=== PATIENT | female | born 1945 | race Caucasian/White ===

== ENCOUNTER 2024-03-29 09:46 | Outpatient (OUT) | payer MEDICARE, SELFPAY ==
--- NOTE | 2024-03-29 | XR_ITS ---
The [address] [address] Patient Name: PEÑA LOPEZ MRN: [id number] date: 1945 Sex: F Assigned Patient Location: Current Patient Location: Accession/Order Number: [id number] Exam Date: 03/29/2024 09:48 Report Date: 03/30/2024 09:55 At the request of: DAV ALFARO Procedure: XR hand RT min 3V PROCEDURE: XR hand RT min 3V HISTORY: RIGHT HAND PAIN ; no known injury COMPARISON: XR hand right 05/25/2021 FINDINGS: BONES:Moderate degenerative joint disease involving the carpal-metacarpal joints of all 5 digits. Moderate degenerative changes of the distal interphalangeal joints of the second and 5th digit. Moderate degenerative changes of the second digit proximal interphalangeal joint. SOFT TISSUES:No visible soft tissue swelling. EFFUSION:None visible. OTHER: Negative. XR/XR hand RT min 3V IMPRESSION: 1. No appreciable acute bone abnormality. 2. Multifocal moderate degenerative joint disease favoring osteoarthritis; slightly progressed. Electronically authenticated by: DAV RAMOS Date: 03/30/2024 09:55
== END 2024-03-29 09:47 | disposition home or self-care (01) ==
LOC: EC 09:46
PROVIDERS: PCP Internal Medicine; Visit Provider Orthopaedic Surgery
DX: M79.641 Pain in right hand (principal)
CPT/HCPCS: 73130

== ENCOUNTER 2024-10-06 11:25 | Outpatient (OUT) | payer MEDICARE, SELFPAY ==
--- NOTE | 2024-10-06 11:44 | XR_ITS ---
The [address] [address] Patient Name: PEAÑ LOPEZ MRN: [id number] date: 1945 Sex: F Assigned Patient Location: [facility] Current Patient Location: [facility] Accession/Order Number: [id number] Exam Date: 10/06/2024 13:56 Report Date: 10/06/2024 13:59 At the request of: ANA LIM Procedure: XR lumbar spine 2-3V 3 views Lumbar Spine HISTORY: Chronic low back pain for 6 months COMPARISON: None POSTSURGICAL CHANGES: None BONY ALIGNMENT: Straightening. Moderate scoliosis with concavity to the left HYPERMOBILITY:No bending imaging. LISTHESIS:4 mm L4-5 degenerative anterolisthesis. 2 mm L2-3 and L3-4 degenerative retrolisthesis. FRACTURE: None DEGENERATIVE CHANGES: Extensive L5-S1 disc space narrowing. Moderate L2-L5 disc space narrowing. Since the lower lumbar facet degeneration. SOFT TISSUES: Unremarkable BONY MINERALIZATION:Diffuse osteopenia XR/XR lumbar spine 2-3V IMPRESSION: Extensive multilevel degeneration. Scoliosis and diffuse osteopenia. Impression dictated by: Samuel Oropeza M.D.10/06/2024 1:59 PM Dictation Location: [place] [address] Electronically authenticated by: [id number] Y Date: 10/06/2024 13:59
--- OUTSIDE RECORDS SUMMARY | 2024-10-06 11:48 | XMS_ITS | CCD ---
Author Organization [facility] Care Team Providers Care Simulation Specialist Name Role Phone DR CARLOS ALBERTO SANCHEZ Primary Care Unavailable DIAB, PRABHJOT Admitting Unavailable DIAB, PRABHJOT Attending Unavailable PRABHJOT UGARTE Consulting Unavailable HEMMER, DR CALLIE Hill Admitting Unavailable HEMMER, DR CALLIE Hill Attending Unavailable RAPHAEL, DR PEREZ Primary Care Unavailable ZIEBER, DR DAV Arenas Consulting Unavailable HEMMER, DR CALLIE Hill Consulting Unavailable Guadalupe Holbrook Unavailable JUANY Sanchez Primary Care Provider MD Guadalupe Holbrook Attending Provider Jess Moss Unavailable JUANY Sanchez Primary Care Provider MD Guadalupe Holbrook Attending Provider JUANY Sanchez Primary Care Provider MD Guadalupe Holbrook Attending Provider Carlos Alberto Sanchez MD Unavailable [phone] Carlos Alberto Sanchez MD Primary Care Provider JUANY Sanchez Primary Care Provider MD Guadalupe Holbrook Attending Provider Carlos Alberto Sanchez II Primary Care Provider [phone] Guadalupe Holbrook MD Attending Provider Guadalupe Holbrook Admitting Unavailable Carlos Alberto Sanchez Primary Care Unavailable Guadalupe Holbrook Attending Unavailable Guadalupe Holbrook Admitting Unavailable Carlos Alberto Sanchez Primary Care Unavailable Guadalupe Holbrook Attending Unavailable Guadalupe Holbrook Admitting Unavailable Carlos Alberto Sanchez Primary Care Unavailable Guadalupe Holbrook Attending Unavailable Carlos Alberto Sanchez Primary Care Unavailable Guadalupe Holbrook Admitting Unavailable Guadalupe Holbrook Attending Unavailable CARLOS ALBERTO SANCHEZ Attending Unavailable CARLOS ALBERTO SANCHEZ Attending Unavailable ANNA HOFFMAN Attending Unavailable CARLOS ALBERTO SANCHEZ Referring Unavailable ELLEN SORTO Attending Unavailable CARLOS ALBERTO SANCHEZ Referring Unavailable LEELA PINTO Attending Unavailable LEELA PINTO Attending Unavailable CARLOS ALBERTO SANCHEZ Attending Unavailable Allergies Allergy Classification Reported Allergen(s) Allergy Type Date of Onset Reaction(s) Facility (13 sources) Azithromycin Drug Allergy 12-19-2022 Unknown [facility] (13 sources) leflunomide Drug Allergy 12-19-2022 Unknown [facility] Medications Current Medications Medication Drug Class(es) Dates Sig (Normalized) Sig (Original) acetaminophen 325 mg / HYDROcodone bitartrate 5 mg oral tablet (10 sources) Opioid Agonist Start: 05-17-2024 HYDROcodone-acetam inophen ([place]) 5-325 MG tablet 05/17/2024 Active Start: 05-17-2024 End: 06-01-2024 take 1 tablet by mouth every four to six hours as needed for pain Hydrocodone-Acetaminophen 5-325 mg table t Discontinued 1 - 2 TAB PO EVERY 4-6 HOURS as needed for pain 30 May 17, 2024 June 01, 2024 10:40am Start: 08-15-2023 End: 05-05-2024 take 1 tablet by mouth every four to six hours as needed for pain Hydrocodone-Acetaminophen 5-325 mg table t Discontinued 1 TAB PO EVERY 4-6 HOURS as needed for pain 30 August 15, 2023 May 05, 2024 10:07am dispense #30 (thirty) dx: Z98.890 postop status [id number] actuat albuterol 0.09 mg/actuat metered dose inhaler (1 source) beta2-Adrenergic Agonist Start: 10-13-2022 take 2 puff(s) by inhalation every four to six hours Albuterol Sulfate HFA 108 (90 Base) MCG/ACT 2 puffs Inhalation every 4-6 hours for 14 days Sep, Active amLODIPine 5 mg / valsartan 320 mg oral tablet (18 sources) Dihydropyridine Calcium Channel Marky, Angiotensin 2 Receptor Marky Start: 04-08-2024 End: 05-13-2025 take 1 tablet by mouth once daily amLODIPine-valsar martinez (Exforge) 5-320 MG tablet Indications: Benign essential hypertension (CMS/HCC) Take 1 tablet by mouth Daily 100 tablet 3 04/08/2024 05/13/2025 Active Start: 12-23-2022 End: 12-23-2023 take 1 tablet by mouth in the morning amLODIPine-valsartan (Exforge) 5-320 MG tablet Indications: Benign essential hypertension (CMS/HCC) Take 1 tablet by mouth in the morning. 90 tablet 3 12/23/2022 Active amLODIPine Besylate-Valsartan (6 sources) amLODIPine Besylate-Valsartan Active amoxicillin 875 mg / clavulanate 125 mg oral tablet (1 source) Penicillin-class Antibacterial Start: 2016 take 1 tablet by mouth every twelve hours Amoxicillin-Pot Clavulanate 875-125 MG 1 tablet Orally every 12 hrs for 10 day(s) Jan, Active azithromycin 250 mg oral tablet (1 source) Macrolide Antimicrobial Start: 2022 Azithromycin 250 MG 2 tablet on the first day, then 1 tablet daily for 4 days Orally Once a day for 5 day(s) Sep, Active benzonatate 100 mg oral capsule (2 sources) Non-narcotic Antitussive Start: 2022 take 1 capsule by mouth every eight hours Tessalon Perles 100 MG 1 capsule as needed Orally Three times a day for 7 days Sep, Active Start: 01-25-2017 take 1 capsule by [facility] eight hours Tessalon Perles 100 MG 1 capsule as needed Orally Three times a day Jan, Active Magnolia (5 sources) Magnolia - as direc joshua Active busPIRone (1 source) busPIRone HCl Ac tive cholecalciferol 0.025 mg oral capsule (2 sources) Vitamin D Start: 05-05-2024 take 1 capsule by mouth once daily Cholecalciferol (Vitamin D3) (Vitamin D3) 25 mcg (1,000 unit) capsule Active 25 MCG PO Daily May 05, 2024 12:00am folic acid 1 mg oral tablet (20 sources) Start: 01-27-2024 take 1 tablet by mouth once daily folic acid (Folvite) 1 MG tablet Indications: Anemia due to folic acid deficiency, unspecified deficiency type Take 1 tablet (1 mg) by mouth Daily 100 tablet 1 01/27/2024 Active Start: 08-14-2023 End: 05-05-2024 take 1 capsule by mouth once daily Folic Acid 0.8 mg capsule Discontinued 0.8 MG PO Daily August 14, 2023 12:00am May 05, 2024 10:07am Start: 07-24-2023 End: 07-24-2023 take 1 tablet by mouth in the morning folic acid (Folvite) 1 MG tablet Indications: Anemia due to folic acid deficiency, unspecified deficiency type Take 1 tablet (1 mg) by mouth in the morning. 100 tablet 1 07/24/2023 Active Folic Acid Activ e hydroxychloroquine sulfate 200 mg oral tablet (20 sources) Antimalarial, Antirheumatic Agent Start: 08-14-2023 End: 04-30-2025 take 1 tablet by mouth in the morning hydroxychloroquine (Plaquenil) 200 MG tablet Indications: Rheumatoid arthritis involving multiple sites with positive rheumatoid factor (CMS/HCC) Take 1 tablet (200 mg) by mouth in the morning. 100 tablet 3 03/26/2024 04/30/2025 Active Start: 08-14-2023 Hydroxychloroq uine Active MG PO As Directed August 14, 2023 1:00am FreeTextSig: as directed Orally; Note: Source Status: Taking; Provider: Yusef Butcher ( ) Start: 12-25-2022 take 1 tablet by jimmy th once daily hydroxychloroquine (Plaquenil) 200 MG tablet Indications: Rheumatoid arthritis involving multiple sites with positive rheumatoid factor (CMS/HCC) TAKE ONE TABLET BY MOUTH DAILY 100 tablet 3 12/25/2022 Active levoFLOXacin (1 source) Quinolone Antimicrobial levoFLOXacin Active meloxicam 7.5 mg oral tablet (20 sources) Nonsteroidal Anti-inflammatory Drug Start: take 7.5 mg by mouth once daily Meloxicam 15 mg tablet Active 7.5 MG PO Daily August 14, 2023 12:00am Start: 08-14-2023 take 1 tablet by jimmy th once daily Meloxicam 15 mg tablet Active 15 MG PO Daily August 14, 2023 12:00am Start: 03-27-2023 End: 04-30-2025 take 1 tablet by mouth once daily meloxicam (Mobic) 7.5 MG tablet Indications: Rheumatoid arthritis involving multiple sites with positive rheumatoid factor (CMS/HCC) Take 1 tablet (7.5 mg) by mouth Daily 100 tablet 3 03/26/2024 04/30/2025 Active Meloxicam Active Methotrexate (1 source) Folate Analog Metabolic Inhibitor Methotrexate Active minocycline 100 mg oral capsule (1 source) Tetracycline-clas s Drug Start: 03-27-20 End: 09-23-19 take 1 capsule by mouth in the morning minocycline 100 MG capsule Indications: Rosacea Take 1 capsule (100 mg) by mouth in the morning. 90 capsule 1 03/27/2023 09/23/2023 Active pantoprazole 40 mg delayed release oral tablet (18 sources) Proton Pump Inhibitor Start: 03-26-20 End: 11-02-19 take 1 tablet by mouth once daily pantoprazole (ProtoNix) 40 MG EC tablet Indications: Gastroesophageal reflux disease without esophagitis Take 1 tablet (40 mg) by mouth Daily 100 tablet 3 09/27/2024 11/01/2025 Active Start: 12-24-2023 take 1 tablet by jimmy th once daily pantoprazole (ProtoNix) 40 MG EC tablet Indications: Gastroesophageal reflux disease without esophagitis Take 1 tablet (40 mg) by mouth Daily 100 tablet 2 12/24/2023 Active Start: 03-04-2023 take 1 tablet by jimmy th in the morning pantoprazole (ProtoNix) 40 MG EC tablet Indications: Gastroesophageal reflux disease without esophagitis Take 1 tablet (40 mg) by mouth in the morning. 100 tablet 2 03/04/2023 Active potassium chloride 10 meq extended release oral tablet (20 sources) Start: 05-12-2023 End: 04-30-2025 take 1 tablet by mouth once daily potassium chloride CR (Klor-Con) 10 MEQ ER tablet Indications: Benign essential hypertension (CMS/HCC) Take 1 tablet (10 mEq) by mouth Daily 100 tablet 3 03/26/2024 04/30/2025 Active Klor-Con 10 Acti ve predniSONE 20 mg oral tablet (2 sources) Start: 10-13-2022 take 1 tablet by mouth every twelve hours prednisone 20 MG 1 tablet Orally BID for 5 days Sep, Active predniSONE Not-T aking simvastatin 40 mg oral tablet (20 sources) HMG-CoA Reductase Inhibitor Start: 03-26-2024 End: 04-30-2025 take 1 tablet by mouth once daily simvastatin (Zocor) 40 MG tablet Indications: Mixed hyperlipidemia (CMS/HCC) Take 1 tablet (40 mg) by mouth Daily 100 tablet 3 03/26/2024 04/30/2025 Active Start: 08-14-2023 Simvastatin 5 mg tablet Active 40 MG PO Every morning August 14, 2023 12:00am Start: 08-14-2023 take 1 tablet by jimmy th once daily Simvastatin 5 mg tablet Active 5 MG PO Daily August 14, 2023 12:00am Start: 02-07-2023 take 1 tablet by jimmy th in the morning simvastatin (Zocor) 40 MG tablet Indications: Mixed hyperlipidemia (CMS/HCC) Take 1 tablet (40 mg) by mouth in the morning. 100 tablet 3 02/07/2023 Active Simvastatin Acti ve Vit C,G-Uw-Ovlin-Lutein-Zeax an (Preservision Areds-2) 250-90-40-1 mg capsule (2 sources) Start: 05-05-2024 Vit C,O-Kc-Ucrki-Lutein-Zeaxan (Preservision Areds-2) 250-90-40-1 mg capsule Active 1 TAB PO Every morning May 05, 2024 12:00am Vitamin B Complex capsule (2 sources) Start: 05-05-2024 take 1 capsule by mouth once daily Vitamin B Complex capsule Active 1 CAP PO Daily May 05, 2024 12:00am vitamin e 450 mg oral capsul e (2 sources) Start: 05-05-2024 take 1 capsule by mouth once daily Vitamin E 670 mg (1,000 unit) capsule Active 670 MG PO Daily May 05, 2024 12:00am Completed/Discontinued Medications Medication Drug Class(es) Dates Sig (Normalized) Sig (Original) amLODIPine 2.5 mg oral tablet (6 sources) Dihydropyridine Calcium Channel Marky Start: 08-14-19 End: 05-05-20 take 1 tablet by mouth once daily Amlodipine 2.5 mg tablet Discontinued 2.5 MG PO Daily August 14, 2023 12:00am May 05, 2024 10:04am doxycycline hyclate 100 mg oral tablet (1 source) Tetracycline-class Drug Start: 05-17-20 End: 06-01-20 take 1 tablet by mouth twice daily Doxycycline Hyclate 100 mg tablet Discontinued 100 MG PO Twice daily 03 27May 17, 2024 12:00am June 01, 2024 10:40am methylPREDNISolone 4 mg oral tablet (9 sources) Corticosteroid Start: 08-14-19 End: 05-05-20 Methylprednisolone (Medrol (Yunier)) 4 mg tablets,dose pack Discontinued MG PO As Directed August 14, 2023 12:00am May 05, 2024 10:07am FreeTextSig: as directed Orally as directed; Note: Source Status: Start; Refills: 0; Qty: 1 pack; Provider: Yusef Arenas Start: 07-23-2023 Medrol 4 MG as directed Orally as directed for 6 days Jun, Active Start: 01-25-2017 Medrol 4 MG as directed Orally Jan, Active methylPREDNISolo ne Not-Taking omeprazole 20 mg delayed release oral capsule (12 sources) Proton Pump Inhibitor Start: 08-14-2023 End: 05-05-2024 Omeprazole 20 mg capsule,delayed release(DR/EC) Discontinued 20 MG PO August 14, 2023 12:00am May 05, 2024 10:06am Medication Name: Omeprazole; Note: Source Status: Taking; Provider: Yusef Butcher ( ) Omeprazole Activ e Problems Active Problems Problem Classification Problem Date Documented Da te Episodic/Chronic Anxiety disorders (16 sources) Generalized anxiety disorder; Translations: [Generalized anxiety disorder] Onset: 12-19-2022 12-19-2022 Chronic Chronic obstructive pulmonary disease and bronchiectasis (1 source) Bronchitis, not specified as acute or chronic Episodic Coronary atherosclerosis and other heart disease (18 sources) Coronary atherosclerosis; Translations: [Atherosclerotic heart disease of [place] coronary artery without angina pectoris] Onset: 12-19-2022 12-19-2022 Chronic Deficiency and other anemia (1 source) Nutritional anemia; Translations: [Folate deficiency anemia, unspecified] 07-24-2023 Episodic Disorders of lipid metabolism (17 sources) Pure hypercholesterolemia , unspecified; Translations: [Mixed hyperlipidemia] Onset: 07-29-2022 12-19-2022 Chronic Diverticulosis and diverticulitis (16 sources) Diverticular disease; Translations: [Diverticulosis of intestine, part unspecified, without perforation or abscess without bleeding] Onset: 12-19-2022 12-19-2022 Chronic Esophageal disorders (20 sources) Gastro-esophageal reflux disease without esophagitis; Translations: [Gastroesophageal reflux disease] Onset: 07-29-2022 12-19-2022 Chronic Essential hypertension (20 sources) Essential (primary) hypertension; Translations: [Benign essential hypertension] Onset: 07-29-2022 12-19-2022 Chronic Fever of unknown origin (1 source) Fever, unspecified; Translations: [FEVER UNSPECIFIED] Onset: 07-29-2022 Episodic Headache; including migraine (1 source) Headache; including migraine; Translations: [HEADACHE UNSPECIFIED] Onset: 07-29-2022 Menopausal disorders (20 sources) Other primary ovarian failure; Translations: [Primary ovarian failure] Onset: 02-28-2022 Chronic Nutritional deficiencies (16 sources) Vitamin D deficiency; Translations: [Vitamin D deficiency, unspecified] Onset: 12-19-2022 12-19-2022 Chronic Osteoarthritis (20 sources) Arthritis of left wrist; Translations: [Primary osteoarthritis, left wrist] Onset: 12-19-2022 Chronic Other aftercare (1 source) Other [facility] (current[facility] drug therapy; Translations: [OTH [employer] CURRENT DRUG THERAPY] Onset: 07-29-2022 Episodic Other congenital anomalies (6 sources) Osteopetrosis; Translations: [Osteopetrosis] 08-14-2023 Chronic Other connective tissue disease (12 sources) Dupuytren's contracture; Translations: [Palmar fascial fibromatosis [Dupuytren]] 08-14-2023 Episodic Other connective tissue disease (17 sources) Palmar fascial fibromatosis [Dupuytren]; Translations: [Contracture of palmar fascia] Episodic Other connective tissue disease (6 sources) Trigger thumb, right thumb; Translations: [Trigger finger (acquired)] Episodic Other connective tissue disease (13 sources) Trigger finger, left index finger; Translations: [Trigger finger (acquired)] Episodic Other connective tissue disease (4 sources) Synovitis and tenosynovitis, unspecified; Translations: [Synovitis and tenosynovitis, unspecified] Episodic Other connective tissue disease (4 sources) Pain in left hand; Translations: [Pain in limb] Episodic Other connective tissue disease (6 sources) Hand pain; Translations: [Pain in left hand] 08-14-2023 Episodic Other connective tissue disease (15 sources) Triggering of digit; Translations: [Trigger finger, left index finger] 08-14-2023 Episodic Other connective tissue disease (6 sources) Trigger thumb of right hand; Translations: [Trigger thumb, right thumb] 08-14-2023 Episodic Other connective tissue disease (6 sources) Synovitis and tenosynovitis; Translations: [Synovitis and tenosynovitis, unspecified] 08-14-2023 Episodic Other connective tissue disease (10 sources) Trigger finger, left little finger; Translations: [Trigger finger (acquired)] Onset: 05-17-2024 09-09-2023 Episodic Other connective tissue disease (7 sources) Trigger finger, right ring finger; Translations: [Trigger finger (acquired)] 10-14-2023 Episodic Other connective tissue disease (3 sources) Subluxation of tendon, wrist or hand; Translations: [Spontaneous rupture of extensor tendons, right hand] 10-14-2023 Episodic Other connective tissue disease (7 sources) Spontaneous rupture of extensor tendons, right hand; Translations: [Nontraumatic rupture of extensor tendons of hand and wrist] Onset: 05-17-2024 04-30-2024 Episodic Other ear and sense organ disorders (20 sources) Sensorineural hearing loss, bilateral; Translations: [Sensorineural hearing loss, bilateral] Onset: 12-19-2022 12-19-2022 Chronic Other inflammatory condition of skin (16 sources) Rosacea; Translations: [Rosacea, unspecified] Onset: 12-19-2022 12-19-2022 Chronic Other nervous system disorders (16 sources) Carpal tunnel syndrome of right wrist; Translations: [Carpal tunnel syndrome, right upper limb] Onset: 12-19-2022 12-19-2022 Chronic Other nervous system disorders (16 sources) Entrapment of left ulnar nerve; Translations: [Lesion of ulnar nerve, left upper limb] Onset: 12-19-2022 12-19-2022 Chronic Other nervous system disorders (16 sources) Chronic pain; Translations: [Other chronic pain] Onset: 12-19-2022 12-19-2022 Chronic Other skin disorders (8 sources) Localized swelling, mass and lump, right upper limb; Translations: [Other symptoms referable to joint, forearm] Episodic Other skin disorders (6 sources) Mass of wrist; Translations: [Localized swelling, mass and lump, right upper limb] 08-14-2023 Episodic Other upper respiratory disease (16 sources) Allergic rhinitis; Translations: [Allergic rhinitis, unspecified] Onset: 12-19-2022 12-19-2022 Chronic Residual codes; unclassified (1 source) Acquired absence of both cervix and uterus; Translations: [ACQUIRED ABSENCE BOTH CERVIX AND UTERUS] Onset: 07-29-2022 Episodic Residual codes; unclassified (15 sources) Other specified postprocedural states; Translations: [Other postprocedural status] Episodic Residual codes; unclassified (6 sources) Postprocedural state finding; Translations: [Other specified postprocedural states] 08-14-2023 Episodic Rheumatoid arthritis and related disease (20 sources) Rheumatoid arthritis, unspecified; Translations: [Rheumatoid arthritis of multiple joints] Onset: 07-29-2022 12-19-2022 Chronic Unclassified (1 source) Pain in left hand; Translations: [Pain in left hand] Onset: 08-04-2023 Viral infection (4 sources) COVID-19; Translations: [COVID-19] Onset: 07-28-2022 Past or Other Problems Problem Classification Problem Date Documented Da te Episodic/Chronic Diabetes mellitus without complication (16 sources) Impaired fasting glycemia; Translations: [Impaired fasting glucose] Onset: 12-19-2022 12-19-2022 Episodic Other bone disease and musculoskeletal deformities (1 source) Other specified disorders of bone density and structure, unspecified site; Translations: [OTH D/O BONE DEN STRUCT UNS SITE] Onset: 03-03-2022 Episodic Other bone disease and musculoskeletal deformities (16 sources) Arrest of bone development AND/OR growth; Translations: [Other disorders of bone development and growth, unspecified site] Onset: 12-19-2022 12-19-2022 Episodic Other connective tissue disease (16 sources) Muscle pain; Translations: [Myalgia, unspecified site] Onset: 12-19-2022 12-19-2022 Episodic Other connective tissue disease (16 sources) Fibromyalgia; Translations: [Fibromyalgia] Onset: 12-19-2022 12-19-2022 Episodic Other ear and sense organ disorders (16 sources) Tinnitus; Translations: [Tinnitus, unspecified ear] Onset: 12-19-2022 12-19-2022 Episodic Other ear and sense organ disorders (1 source) Bilateral tinnitus; Translations: [Tinnitus, bilateral] 02-16-2024 Episodic Other ear and sense organ disorders (1 source) Impaired auditory discrimination; Translations: [Other abnormal auditory perceptions, right ear] 02-16-2024 Episodic Other ear and sense organ disorders (2 sources) Impacted cerumen of bilateral ears; Translations: [Impacted cerumen, bilateral] 02-18-2024 Episodic Other lower respiratory disease (16 sources) Disorder of lung; Translations: [Other disorders of lung] Onset: 12-19-2022 Resolved: 12-23-2022 12-23-2022 Episodic Other screening for suspected conditions (not mental disorders or infectious disease) (16 sources) Liver function tests abnormal; Translations: [Abnormal results of liver function studies] Onset: 12-19-2022 12-19-2022 Episodic Spondylosis; intervertebral disc disorders; other back problems (20 sources) Lumbar radiculopathy; Translations: [Radiculopathy, lumbar region] Onset: 12-19-2022 12-19-2022 Episodic Results Test Name Value Interpretation Reference Range [facility] 05-17-2024 -- ---- Specimen: [id number] Received: 05/17/24 Status: NIVIA Gonzalez Num: [id number] Spec Type: Surgical Subm Dr: Guadalupe Holbrook MD Tissues: A Synovium-Biopsy or tissue (SMALL FINGER SYNOVIUM R HAND) Procedures: HE/2, Gross/Micro L4 ---- Age/ Patient Sex Location Account Attending Physician ---- Peña Ruth 79/F [place] [id number] Guadalupe Holbrook MD ---- SPEC NUM: [id number] RECD: 05/17/24 STATUS: NIVIA GONZALEZ NUM: [id number] FIORELLA: 05/17/24 [facility] DR: Guadalupe Holbrook MD ENTERED: 05/17/[address] [facility] [address]: BOOIGE TYPE: Surgical DEPT: S ENTERED BY: [id number] RECV BY: [id number] ORDERED: HE/2, Gross/Micro L4 ORDERED: HE/2, Gross/Micro L4, USS/3 Supplemental Report Addendum 1 Entered: 06/01/24 Supplemental for findings of the Amyloid A by immunohistochemistry from [facility] but with interpretation here on site: -Negative Note: -There is no evidence of any abnormal staining of AA protein in any normal and/or degenerated area of the synovial tissue in this biopsy, when compared to the positive brownish staining deposits of the concurrent control slide available for comparison, excluding possibility of amyloidosis synovitis in this examination CPT: 36812 Addendum Signed (signature on file) Angelica Brewer MD 06/01/24 0852 ---- ---- Specimen: [id number] Received: 05/17/24 Status: NIVIA Gonzalez Num: [id number] Spec Type: Surgical Subm Dr: Guadalupe Holbrook MD Tissues: A Synovium-Biopsy or tissue (SMALL FINGER SYNOVIUM R HAND) Procedures: HE/2, Gross/Micro L4 ---- Patient: Peña Ruth [id number] (Continued) ---- Specimen: [id number] Received: 05/17/24 (Continued) Signed (signature on file) Angelica Brewer MD 05/19/24 1629 ---- Specimen: [id number] Received: 05/17/24 Status: NIVIA Gonzalez Num: [id number] Spec Type: Surgical Subm Dr: Guadalupe Holbrook MD Tissues: A Synovium-Biopsy or tissue (SMALL FINGER SYNOVIUM R HAND) Procedures: HE/2, Gross/Micro L4 ---- Patient: Peña Ruth [id number] (Continued) ---- Specimen: [id number] Received: 05/17/24 (Continued) Pathological Diagnosis Soft tissue, right hand, excisional biopsy: -Fragments of hypertrophic tenosynovial soft tissue, demonstrating occasional patchy mild sclerotic hyalinization or degeneration of the surfaces of synovial villi, including minute foci of fibrinoid degeneration, and occasional minute foci of lymphocytic chronic inflammation also noticed, 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 The paucity of the chronic inflammation (also laking plasma cell), may also argue against autoimmune process such as rheumatoid arthritis. There is also no evidence of granulomatous formation, therefore also no features of rheumatoid nodule, or gouty arthritis. Pending additional immunostain for Amyloid A to follow Clinical Information Martinez-pink, trigger finger Gross Description Part A is received fresh labeled with the patients name, date of , and small finger synovium R hand are 3 mccarthy-martinez to pink, fibromembranous tissue fragments, 0.6, 0.7, and 1.1 cm in greatest dimension. Two touch prep slides are prepared with 1 alcohol dried. The remainder the specimen is entirely submitted for routine H E processing in a single cassette. (1, ns, [id number]) Microscopic Description Microscopic examinations are performed supporting the above interpretation -- (more content not included)... Normal [facility] Alanine aminotransferase [En zymatic activity/volume] in Serum or PlasmaOrdered By: Guadalupe Holbrook on 05-05-2024 ALT [Catalytic activity/Vol] Alanine aminotransferase [Enzymatic activity/volume] in Serum or Plasma [facility] Albumin [Mass/volume] in Ser um or Plasma by Bromocresol green (BCG) dye binding methoOrdered By: Guadalupe Holbrook on 05-05-2024 Albumin BCG dye [Mass/Vol] Albumin [Mass/volume] in Serum or Plasma by Bromocresol green (BCG) dye binding metho 3.5-5.7 [facility] Alkaline phosphatase [Enzyma tic activity/volume] in Serum or PlasmaOrdered By: Guadalupe Holbrook on 05-05-2024 ALP [Catalytic activity/Vol] Alkaline phosphatase [Enzymatic activity/volume] in Serum or Plasma 34-104 [facility] Aspartate aminotransferase [ Enzymatic activity/volume] in Serum or PlasmaOrdered By: Guadalupe Holbrook on 05-05-2024 AST [Catalytic activity/Vol] Aspartate aminotransferase [Enzymatic activity/volume] in Serum or Plasma 13-39 [facility] Basophils Auto (Bld) [#/Vol] Ordered By: Guadalupe Holbrook on 05-05-2024 Basophils (Bld) [#/Vol] Automated basoph il count 0.0-0.2 [facility] Basophils/100 WBC Auto (Bld) Ordered By: Guadalupe Holbrook on 05-05-2024 Basophils/100 WBC (Bld) Automated basophil % . [facility] Bilirubin.total [Mass/volume ] in Serum or PlasmaOrdered By: Guadalupe Holbrook on 05-05-2024 Bilirubin [Mass/Vol] Bilirubin.total [Mass/volume] in Serum or Plasma High 0.3-1.0 [facility] CMP with reflex to A1Con Albumin [Mass/Vol] 4.2 g/dL Normal 3.5-5.7 [facility] Comment on above: Performed By: #### C MP wRFX A1C, CBC #### [facility] [address] Albumin/Globulin [Mass ratio] 1.5 {ratio} Normal [facility] Comment on above: Performed By: #### C MP wRFX A1C, CBC #### [facility] [address] [place] [id number] [place] ALP [Catalytic activity/Vol] 73 U/L Normal 34-104 [facility] Comment on above: Result Comment: PERF ORMED BY: [facility] [address] [place] [address] PATHOLOGIST CASTING MACHINE OPERATOR AUTOMATIC FRANCIE CHAUDHARY M.D. Performed By: #### C MP wRFX A1C, CBC #### [facility] [address] [place] [address] [place] ALT [Catalytic activity/Vol] 13 U/L Normal 7-52 [facility] Comment on above: Performed By: #### C MP wRFX A1C, CBC #### [facility] [address] [place] [id number] [place] Anion gap [Moles/Vol] 13.4 mmol/L Normal 6.0-15.0 Th e [facility] Comment on above: Performed By: #### C MP wRFX A1C, CBC #### [facility] [address] [place] [id number] [place] AST [Catalytic activity/Vol] 24 U/L Normal 13-39 [facility] Comment on above: Performed By: #### C MP wRFX A1C, CBC #### [facility] [address] [place] [id number] [place] Bilirubin [Mass/Vol] 1.1 mg/dL High 0.3-1.0 [facility] Comment on above: Performed By: #### C MP wRFX A1C, CBC #### [facility] [address] [place] [id number] [place] Calcium [Mass/Vol] 9.6 mg/dL Normal 8.6-10.3 [facility] Comment on above: Performed By: #### C MP wRFX A1C, CBC #### [facility] [address] [place] [address] [place] Chloride [Moles/Vol] 101 mmol/L Normal 98-107 [facility] Comment on above: Performed By: #### C MP wRFX A1C, CBC #### [facility] [address] [place] [id number] [place] CO2 [Moles/Vol] 29.5 mmol/L Normal 21.0-31.0 [facility] Comment on above: Performed By: #### C MP wRFX A1C, CBC #### [facility] [address] [place] [id number] [place] Creatinine [Mass/Vol] 0.78 mg/dL Normal 0.60-1.20 [facility] Comment on above: Performed By: #### C MP wRFX A1C, CBC #### [facility] [address] [place] [id number] [place] GFR/1.73 sq M.predicted MDRD (S/P/Bld) [Vol rate/Area] mL/min/{1.73_m2} Normal [facility] Comment on above: Performed By: #### C MP wRFX A1C, CBC #### [facility] [address] Globulin (S) [Mass/Vol] 2.8 g/dL Normal T he [facility] Comment on above: Performed By: #### C MP wRFX A1C, CBC #### [address] Glucose [Mass/Vol] 79 mg/dL Normal 70-100 [facility] Comment on above: Performed By: #### C MP wRFX A1C, CBC #### [address] Potassium [Moles/Vol] 3.9 mmol/L Normal 3.5-5.1 [facility] Comment on above: Performed By: #### C MP wRFX A1C, CBC #### [address] Protein [Mass/Vol] 7.0 g/dL Normal 6.4-8.9 [facility] Comment on above: Performed By: #### C MP wRFX A1C, CBC #### [address] Sodium [Moles/Vol] 140 mmol/L Normal 136-145 [facility] Comment on above: Performed By: #### C MP wRFX A1C, CBC #### [address] Urea nitrogen [Mass/Vol] 19 mg/dL Normal 7-25 [facility] Comment on above: Performed By: #### C MP wRFX A1C, CBC #### [place] [address] [place] Calcium [Mass/volume] in Ser um or PlasmaOrdered By: Guadalupe Holbrook on 05-05-2024 Calcium [Mass/Vol] Calcium [Mass/volume ] in Serum or Plasma 8.6-10.3 [facility] Carbon dioxide, total [Moles /volume] in Serum or PlasmaOrdered By: Guadalupe Holbrook on 05-05-2024 CO2 [Moles/Vol] Carbon dioxide, tota l [Moles/volume] in Serum or Plasma 21.0-31.0 [facility] Chloride [Moles/volume] in S ying or PlasmaOrdered By: Guadalupe Holbrook on 05-05-2024 Chloride [Moles/Vol] Chloride [Moles/volume] in Serum or Plasma 98-107 [facility] Complete Blood Count Auto Di ffon 05-05-2024 Basophils (Bld) [#/Vol] 0.1 10*3/uL Normal 0.0-0.2 [facility] Comment on above: Result Comment: PERF ORMED BY: [place] [address] PATHOLOGIST CASTING MACHINE OPERATOR AUTOMATIC MELVIN BOLES M.D. Performed By: #### C MP wRFX A1C, CBC #### [address] Basophils/100 WBC (Bld) 1.0 % Normal . T [facility] Comment on above: Performed By: #### C MP wRFX A1C, CBC #### [place] [address] [place] Eosinophils (Bld) [#/Vol] 0.2 10*3/uL Normal 0.0-0.45 [facility] Comment on above: Performed By: #### C MP wRFX A1C, CBC #### [place] [address] [place] Eosinophils/100 WBC (Bld) 2.7 % Normal . [facility] Comment on above: Performed By: #### C MP wRFX A1C, CBC #### [address] Erythrocyte distribution width (RBC) [Ratio] 14.0 % Normal 11.9-15.3 [facility] Comment on above: Performed By: #### C MP wRFX A1C, CBC #### [address] Hematocrit (Bld) [Volume fraction] 40.7 % Normal 34.0-46.4 [facility] Comment on above: Performed By: #### C MP wRFX A1C, CBC #### [address] Hemoglobin (Bld) [Mass/Vol] 13.7 g/dL Normal 11.8-15.4 [facility] Comment on above: Performed By: #### C MP wRFX A1C, CBC #### [address] Lymphocytes (Bld) [#/Vol] 1.6 10*3/uL Normal 1.00-4.8 [facility] Comment on above: Performed By: #### C MP wRFX A1C, CBC #### [address] Lymphocytes/100 WBC (Bld) 22.2 % Normal . [facility] Comment on above: Performed By: #### C MP wRFX A1C, CBC #### [address] MCH (RBC) [Entitic mass] 29.2 pg Normal 24.7-34.3 [facility] Comment on above: Performed By: #### C MP wRFX A1C, CBC #### [address] MCV (RBC) [Entitic vol] 86.4 fL Normal 80-100 T [facility] Comment on above: Performed By: #### C MP wRFX A1C, CBC #### [address] Mean Corpuscular HGB Conc 33.8 g/dL Normal 32.0-35.0 [facility] Comment on above: Performed By: #### C MP wRFX A1C, CBC #### [address] Monocytes (Bld) [#/Vol] 0.8 10*3/uL Normal 0.0-0.8 [facility] Comment on above: Performed By: #### C MP wRFX A1C, CBC #### [facility] [address] [place] [id number] [place] Monocytes/100 WBC (Bld) 11.7 % Normal . [facility] Comment on above: Performed By: #### C MP wRFX A1C, CBC #### [facility] [address] [place] [address] [place] Neutrophils (Bld) [#/Vol] 4.4 10*3/uL Normal 1.8-7.7 [facility] Comment on above: Performed By: #### C MP wRFX A1C, CBC #### [facility] [address] [place] [id number] [place] Neutrophils/100 WBC (Bld) 62.4 % Normal . [facility] Comment on above: Performed By: #### C MP wRFX A1C, CBC #### [facility] [address] [place] [address] [place] NRBC% 0.1 /100{WBC} Normal 0-0.5 [facility] Comment on above: Performed By: #### C MP wRFX A1C, CBC #### [facility] [address] [place] [address] [place] Platelet mean volume (Bld) [Entitic vol] 7.1 fL Normal 6.3-10.7 [facility] Comment on above: Performed By: #### C MP wRFX A1C, CBC #### [facility] [address] [place] [address] [place] Platelets (Bld) [#/Vol] 210 10*3/uL Normal 150-450 [facility] Comment on above: Performed By: #### C MP wRFX A1C, CBC #### [facility] [address] [place] [id number] [place] RBC (Bld) [#/Vol] 4.71 10*6/uL Normal 3.60-5.00 [facility] Comment on above: Performed By: #### C MP wRFX A1C, CBC #### [facility] [address] [place] [phone] [place] WBC (Bld) [#/Vol] 7.1 10*3/uL Normal 3.8-11.6 [facility] Comment on above: Performed By: #### C MP wRFX A1C, CBC #### [address] Creatinine [Mass/volume] in Serum or PlasmaOrdered By: Guadalupe Holbrook on 05-05-2024 Creatinine [Mass/Vol] Creatinine [Mass/volume] in Serum or Plasma 0.60-1.20 [facility] ECG 12 lead ECGon 05-05-2024 ECG 12 lead ECG [facility] [place] [address] [place] [address] Electrocardiograph Report Signed Patient: Peña Ruth MR#: [id number] : 1945 Acct:[id number] Age/Sex: 79 / F ADM Date: 05/05/24 Loc: Room: Type: [facility] Attending Dr: Guadalupe Holbrook MD Ordering Provider: Guadalupe Holbrook MD Date of Service: 05/05/24 ECG/ECG 12 lead ECG: Pre op Copies to: Test Reason : Blood Pressure : */* mmHG Vent. Rate : 68 BPM Atrial Rate : 68 BPM P-R Int : 184 ms QRS Dur : 90 ms QT Int : 400 ms P-R-T Axes : 60 -3 54 degrees QTcB Int : 425 ms Normal sinus rhythm When compared with ECG of 04-Dec-2022 12:00, No significant change was found Confirmed by PRAKASH CEJA MD ([id number]) on 05/05/2024 3:58:49 PM Referred By: Electronically Signed By: PRAKASH CEJA MD Transcribed By: MUS Signed By Prakash Ceja MD 1 07/05/23 7561 Normal [facility] Eosinophils Auto (Bld) [#/Vo l]Ordered By: Guadalupe Holbrook on 05-05-2024 Eosinophils (Bld) [#/Vol] Automated eosinophil count 0.0-0.45 [facility] Eosinophils/100 WBC Auto (Bl d)Ordered By: Guadalupe Holbrook on 05-05-2024 Eosinophils/100 WBC (Bld) Automated eosinophil % . [facility] Erythrocyte distribution wid th Auto (RBC) [Ratio]Ordered By: Guadalupe Holbrook on 05-05-2024 Erythrocyte distribution width (RBC) [Ratio] Erythrocyte distribution width [Ratio] by Automated count 11.9-15.3 [facility] Globulin Calc (S) [Mass/Vol] Ordered By: Guadalupe Holbrook on 05-05-2024 Globulin (S) [Mass/Vol] Serum globulin measurement by calculation (mass/volume) [facility] Glucose [Mass/volume] in Ser um or PlasmaOrdered By: Guadalupe Holbrook on 05-05-2024 Glucose [Mass/Vol] Glucose [Mass/volume ] in Serum or Plasma 70-100 [facility] Hematocrit Auto (Bld) [Volum e fraction]Ordered By: Guadalupe Holbrook on 05-05-2024 Hematocrit (Bld) [Volume fraction] Hematocrit [Volume Fraction] of Blood by Automated count 34.0-46.4 [facility] Hemoglobin [Mass/volume] in BloodOrdered By: Guadalupe Holbrook 05-05-2024 Hemoglobin (Bld) [Mass/Vol] Hemoglobin [Mass/volume] in Blood 11.8-15.4 [facility] Leukocytes [#/volume] correc joshua for nucleated erythrocytes in Blood by Automated counOrdered By: Guadalupe Holbrook 05-05-2024 WBC corrected for nucl RBC Auto (Bld) [#/Vol] Leukocytes [#/volume] corrected for nucleated erythrocytes in Blood by Automated coun 3.8-11.6 [facility] Lymphocytes Auto (Bld) [#/Vo l]Ordered By: Guadalupe Holbrook on 05-05-2024 Lymphocytes (Bld) [#/Vol] Lymphocytes [#/volume] in Blood by Automated count 1.00-4.8 [facility] Lymphocytes/100 WBC Auto (Bl d)Ordered By: Guadalupe Holbrook on 05-05-2024 Lymphocytes/100 WBC (Bld) Lymphocytes/100 leukocytes in Blood by Automated count . [facility] MCH Auto (RBC) [Entitic mass ]Ordered By: Guadalupe Holbrook 05-05-2024 MCH (RBC) [Entitic mass] MCH [Entitic mass] by Automated count 24.7-34.3 [facility] MCHC Auto (RBC) [Mass/Vol]Or dered By: Guadalupe Holbrook on 05-05-2024 MCHC (RBC) [Mass/Vol] MCHC [Mass/volume] by Automated count 32.0-35.0 [facility] MCV Auto (RBC) [Entitic vol] Ordered By: Guadalupe Holbrook on 05-05-2024 MCV (RBC) [Entitic vol] MCV [Entitic vol ume] by Automated count 80-100 [facility] Monocytes Auto (Bld) [#/Vol] Ordered By: Guadalupe Holbrook on 05-05-2024 Monocytes (Bld) [#/Vol] Automated blood monocyte count 0.0-0.8 [facility] Monocytes/100 WBC Auto (Bld) Ordered By: Guadalupe Holbrook on 05-05-2024 Monocytes/100 WBC (Bld) Automated monocyte % . [facility] Neutrophils Auto (Bld) [#/Vo l]Ordered By: Guadalupe Holbrook on 05-05-2024 Neutrophils (Bld) [#/Vol] Neutrophils [#/volume] in Blood by Automated count 1.8-7.7 [facility] Neutrophils/100 WBC Auto (Bl d)Ordered By: Guadalupe Holbrook on 05-05-2024 Neutrophils/100 WBC (Bld) Automated neutrophil % . [facility] No Panel InformationOrdered By: Guadalupe Holbrook on 05-05-2024 Estimated GFR (CKD-EPI) > 60.0 mL/Min [facility] Creatinine Clearance (Chem N/A [facility] Nucleated erythrocytes [Pres ence] in Blood by Automated countOrdered By: Guadalupe Holbrook on 05-05-2024 Nucleated RBC Auto Ql (Bld) Nucleated erythrocytes [Presence] in Blood by Automated count 0-0.5 [facility] Platelet mean volume Auto (B ld) [Entitic vol]Ordered By: Guadalupe Holbrook on 05-05-2024 Platelet mean volume (Bld) [Entitic vol] Platelet mean volume [Entitic volume] in Blood by Automated count 6.3-10.7 [facility] Platelets Auto (Bld) [#/Vol] Ordered By: Guadalupe Holbrook on 05-05-2024 Platelets (Bld) [#/Vol] Platelets [#/vol ume] in Blood by Automated count 150-450 [facility] Potassium [Moles/volume] in Serum or PlasmaOrdered By: Guadalupe Holbrook on 05-05-2024 Potassium [Moles/Vol] Potassium [Moles/volume] in Serum or Plasma 3.5-5.1 [facility] Protein [Mass/volume] in Ser um or PlasmaOrdered By: Guadalupe Holbrook on 05-05-2024 Protein [Mass/Vol] Protein [Mass/volume ] in Serum or Plasma 6.4-8.9 [facility] RBC Auto (Bld) [#/Vol]Ordere d By: Guadalupe Holbrook on 05-05-2024 RBC (Bld) [#/Vol] Erythrocytes [#/volume] in Blood by Automated count 3.60-5.00 [facility] Serum or plasma albumin/glob ulin mass ratioOrdered By: Guadalupe Holbrook on 05-05-2024 Albumin/Globulin [Mass ratio] Serum or plasma albumin/globulin mass ratio [facility] Serum or plasma anion gap de terminationOrdered By: Guadalupe Holbrook on 05-05-2024 Anion gap [Moles/Vol] Serum or plasma an ion gap determination 6.0-15.0 [facility] Sodium [Moles/volume] in Ser um or PlasmaOrdered By: Guadalupe Holbrook on 05-05-2024 Sodium [Moles/Vol] Sodium [Moles/volume ] in Serum or Plasma 136-145 [facility] Urea nitrogen [Mass/volume] in Serum or PlasmaOrdered By: Guadalupe Holbrook on 05-05-2024 Urea nitrogen [Mass/Vol] Urea nitrogen [Mass/volume] in Serum or Plasma 7-25 [facility] WBC Auto (Bld) [#/Vol]Ordere d By: Guadalupe Holbrook on 05-05-2024 WBC (Bld) [#/Vol] Leukocytes [#/volume ] in Blood by Automated count 3.8-11.6 [facility] Auditory function testson Right Ear: Mild sloping to profound sensorineural hearing loss above 500 Hz Left Ear: Mild sloping to severe sensorineural hearing loss [facility] 08-04-2023 L Specimen: S2 Received: 08/04/23 Status: NIVIA Gonzalez Num: [id number] Spec Type: Surgical Subm Dr: Guadalupe Holbrook MD Tissues: A Synovium-Biopsy or tissue (LT HAND) Procedures: HE, Gross/Micro L4 Age/ Patient Sex Location Account Attending Physician FarazPeña Keri 78/F [place] [id number] Guadalupe Holbrook MD SPEC NUM: [id number] RECD: 08/04/23 STATUS: NIVIA GONZALEZ NUM: [id number] FIORELLA: 08/04/23- SUBM DR: Guadalupe Holbrook MD ENTERED: 08/04/[address] [facility] DR: [facility] SPEC TYPE: Surgical DEPT: S ENTERED BY: [id number] RECV BY: [id number] ORDERED: HE, Gross/Micro L4 ORDERED: HE, Gross/Micro L4 Pathological Diagnosis pseudo tendon, index and small finger, excision: - Inflamed and degenerating synovial type tissue with acute and chronic inflammation and fibrin deposition. Clinical Information Left hand pain, trigger finger Gross Description Received in formalin labeled with the patient's name, date of and synovitis pseudo tendon index and small finger is a 2.0 x 2.0 x 0.6 cm aggregate of pink-martinez and yellow soft tissue fragments. There are no suspicious foci identified upon sectioning. Entirely submitted in one cassette labeled A1. Microscopic Description Microscopic examination supports the above rendered diagnosis. CPT Codes 66943 ---- ---- Specimen: [id number] Received: 08/04/23 Status: NIVIA Gonzalez Num: [id number] Spec Type: Surgical Subm Dr: Guadalupe Holbrook MD Tissues: A Synovium-Biopsy or tissue (LT HAND) Procedures: HE, Gross/Micro L4 ---- Patient: Peña Ruth [id number] (Continued) ---- Signed (signature on file) Emmanuelle Valenzuela MD 08/05/23 1144 Normal [facility] XR hand LT min 3V*on XR hand LT min 3V* [facility] [place] [address] XRay Report Signed Patient: Peña Ruth MR#: [id number] : 1945 Acct:[id number] Age/Sex: 78 / F ADM Date: 07/23/23 [place] [facility] [place] Type[facility] Attending Dr: Guadalupe Holbrook MD Copies to: Guadalupe Holbrook MD Ordering Provider: Guadalupe Holbrook MD Date of Service: 07/23/23 XR/XR hand LT min 3V*: Left hand pain LEFT HAND - 4 views REASON FOR EXAM: Fifth metacarpal pain. First CMC joint pain. COMPARISON: None FINDINGS: No focal soft tissue abnormality or acute bony process. 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 MCP joints appear grossly unremarkable. IP joints demonstrate degenerative change without bony erosions. Bones are grossly demineralized. XR/XR hand LT min 3V* IMPRESSION: DEGENERATIVE CHANGES INVOLVING THE LEFT HAND, WORST AT THE CMC JOINT OF THE THUMB. Impression dictated by: Arley Crocker Jr., DLarisa07/23/2023 3:14 PM Dictation Location: [place] [address] Transcribed By: [facility] 07/23/231513 Dictated By: Arley Crocker Jr, DO 07/23/231512 Signed By: 07/23/23 151 Normal [facility] Alanine aminotransferase [En zymatic activity/volume] in Serum or PlasmaOrdered By: Guadalupe Holbrook on 12-04-2022 ALT [Catalytic activity/Vol] 13 U/L 7-52 [facility] Albumin [Mass/volume] in Ser um or Plasma by Bromocresol green (BCG) dye binding methoOrdered By: Guadalupe Holbrook on 12-04-2022 Albumin BCG dye [Mass/Vol] 4.7 g/dL 3.5-5.7 [facility] Alkaline phosphatase [Enzyma tic activity/volume] in Serum or PlasmaOrdered By: Guadalupe Holbrook on 12-04-2022 ALP [Catalytic activity/Vol] 64 U/L 34-104 [facility] Aspartate aminotransferase [ Enzymatic activity/volume] in Serum or PlasmaOrdered By: Guadalupe Holbrook on 12-04-2022 AST [Catalytic activity/Vol] 23 U/L 13-39 [facility] Basophils Auto (Bld) [#/Vol] Ordered By: Guadalupe Holbrook on 12-04-2022 Basophils (Bld) [#/Vol] 0.1 10*3/uL 0.0-0.2 [facility] Basophils/100 WBC Auto (Bld) Ordered By: Guadalupe Holbrook on 12-04-2022 Basophils/100 WBC (Bld) 1.0 % . [facility] Bilirubin.total [Mass/volume ] in Serum or PlasmaOrdered By: Guadalupe Holbrook on 12-04-2022 Bilirubin [Mass/Vol] 1.2 mg/dL 0.3-1.0 [facility] Calcium [Mass/volume] in Ser um or PlasmaOrdered By: Guadalupe Holbrook on 12-04-2022 Calcium [Mass/Vol] 10.1 mg/dL 8.6-10.[address] [facility] Carbon dioxide, total [Moles /volume] in Serum or PlasmaOrdered By: Guadalupe Holbrook on 12-04-2022 CO2 [Moles/Vol] 29.3 mmol/L 21.0-31.0 [facility] Chloride [Moles/volume] in S ying or PlasmaOrdered By: Guadalupe Holbrook on 12-04-2022 Chloride [Moles/Vol] 103 mmol/L 98-107 [facility] Creatinine [Mass/volume] in Serum or PlasmaOrdered By: Guadalupe Holbrook on 12-04-2022 Creatinine [Mass/Vol] 0.78 mg/dL 0.60-1.20 [facility] Eosinophils Auto (Bld) [#/Vo l]Ordered By: Guadalupe Holbrook on 12-04-2022 Eosinophils (Bld) [#/Vol] 0.1 10*3/uL 0.0-0.45 [facility] Eosinophils/100 WBC Auto (Bl d)Ordered By: Guadalupe Holbrook on 12-04-2022 Eosinophils/100 WBC (Bld) 2.0 % . [facility] Erythrocyte distribution wid th Auto (RBC) [Ratio]Ordered By: Guadalupe Holbrook on 12-04-2022 Erythrocyte distribution width (RBC) [Ratio] 14.8 % 11.9-15.3 [facility] Globulin Calc (S) [Mass/Vol] Ordered By: Guadalupe Holbrook on 12-04-2022 Globulin (S) [Mass/Vol] 2.7 g/dL [facility] Glucose [Mass/volume] in Ser um or PlasmaOrdered By: Guadalupe Holbrook on 12-04-2022 Glucose [Mass/Vol] 76 mg/dL 70-[address] [facility] Comment on above: ADA recommended refe rence rangeRandom Glucose Reference Range is dependent on time and content of last meal. Glucose of more than 200 mg/dL in a nonstressed, ambulatory subject supports the diagnosis of Diabetes Mellitus. Hematocrit Auto (Bld) [Volum e fraction]Ordered By: Guadalupe Holbrook on 12-04-2022 Hematocrit (Bld) [Volume fraction] 41.5 % 34.0-46.4 [facility] Hemoglobin [Mass/volume] in BloodOrdered By: Guadalupe Holbrook on 12-04-2022 Hemoglobin (Bld) [Mass/Vol] 14.1 g/dL 11.8-15.4 [facility] Leukocytes [#/volume] correc joshua for nucleated erythrocytes in Blood by Automated counOrdered By: Guadalupe Holbrook on 12-04-2022 WBC corrected for nucl RBC Auto (Bld) [#/Vol] 5.9 10*3/uL 3.8-11.6 [facility] Lymphocytes Auto (Bld) [#/Vo l]Ordered By: Guadalupe Holbrook on 12-04-2022 Lymphocytes (Bld) [#/Vol] 1.8 10*3/uL 1.00-4.8 [facility] Lymphocytes/100 WBC Auto (Bl d)Ordered By: Guadalupe Holbrook on 12-04-2022 Lymphocytes/100 WBC (Bld) 30.1 % . [facility] MCH Auto (RBC) [Entitic mass ]Ordered By: Guadalupe Holbrook on 12-04-2022 MCH (RBC) [Entitic mass] 29.3 pg 24.7-34.3 [facility] MCHC Auto (RBC) [Mass/Vol]Or dered By: Guadalupe Holbrook on 12-04-2022 MCHC (RBC) [Mass/Vol] 34.1 g/dL 32.0-35.0 [facility] MCV Auto (RBC) [Entitic vol] Ordered By: Guadalupe Holbrook on 12-04-2022 MCV (RBC) [Entitic vol] 86.0 fL 80-100 [facility] Monocytes Auto (Bld) [#/Vol] Ordered By: Guadalupe Holbrook on 12-04-2022 Monocytes (Bld) [#/Vol] 0.8 10*3/uL 0.0-0.8 [facility] Monocytes/100 WBC Auto (Bld) Ordered By: Guadalupe Holbrook on 12-04-2022 Monocytes/100 WBC (Bld) 12.9 % . [facility] Neutrophils Auto (Bld) [#/Vo l]Ordered By: Guadalupe Holbrook on 12-04-2022 Neutrophils (Bld) [#/Vol] 3.2 10*3/uL 1.8-7.7 [facility] Neutrophils/100 WBC Auto (Bl d)Ordered By: Guadalupe Holbrook on 12-04-2022 Neutrophils/100 WBC (Bld) 54.0 % . [facility] No Panel InformationOrdered By: Guadalupe Holbrook on 12-04-2022 Estimated GFR (CKD-EPI) > 60.0 mL/Min [facility] Pharmacy Creatinine Clearance (Chem N/A [facility] Nucleated erythrocytes [Pres ence] in Blood by Automated countOrdered By: Guadalupe Holbrook on 12-04-2022 Nucleated RBC Auto Ql (Bld) 0.1 /100{WBC} 0-0.5 [facility] Platelet mean volume Auto (B ld) [Entitic vol]Ordered By: Guadalupe Holbrook on 12-04-2022 Platelet mean volume (Bld) [Entitic vol] 7.5 fL 6.3-10.7 [facility] Platelets Auto (Bld) [#/Vol] Ordered By: Guadalupe Holbrook on 12-04-2022 Platelets (Bld) [#/Vol] 183 10*3/uL 150-450 [facility] Potassium [Moles/volume] in Serum or PlasmaOrdered By: Guadalupe Holbrook on 12-04-2022 Potassium [Moles/Vol] 4.1 mmol/L 3.5-5.1 [facility] Protein [Mass/volume] in Ser um or PlasmaOrdered By: Guadalupe Holbrook on 12-04-2022 Protein [Mass/Vol] 7.4 g/dL 6.4-8.[address] [facility] RBC Auto (Bld) [#/Vol]Ordere d By: Guadalupe Holbrook on 12-04-2022 RBC (Bld) [#/Vol] 4.82 10*6/uL 3.60-5.00 [facility] Serum or plasma albumin/glob ulin mass ratioOrdered By: Guadalupe Holbrook on 12-04-2022 Albumin/Globulin [Mass ratio] 1.7 {ratio} [facility] Serum or plasma anion gap de terminationOrdered By: Guadalupe Holbrook on 12-04-2022 Anion gap [Moles/Vol] 11.8 mmol/L 6.0-15.0 [facility] Sodium [Moles/volume] in Ser um or PlasmaOrdered By: Guadalupe Holbrook on 12-04-2022 Sodium [Moles/Vol] 140 mmol/L 136-[address] [facility] Urea nitrogen [Mass/volume] in Serum or PlasmaOrdered By: Guadalupe Holbrook on 12-04-2022 Urea nitrogen [Mass/Vol] 18 mg/dL 7-25 [facility] WBC Auto (Bld) [#/Vol]Ordere d By: Guadalupe Holbrook on 12-04-2022 WBC (Bld) [#/Vol] 5.9 10*3/uL 3.8-11.[address] [facility] XR wrist RT min 3V*on 2022 XR wrist RT min 3V* [facility] WHATT Other XR wrist RT min 3V* [facility] WHATT Other XR wrist RT min 3V* [address] [place] [address] WHATT Other XR wrist RT min 3V* [place] [address] [facility]ly [facility] WHATT Other XR wrist RT min 3V* XRay Report [facility] WHATT Other XR wrist RT min 3V* Signed [employer]TM) by [employer] Other XR wrist RT min 3V* Patient: Peña Ruth MR#: [id number] [facility] WHATT Other XR wrist RT min 3V* 9700 [employer] Other XR wrist RT min 3V* : 1945 Acct:[id number] [employer]) by [employer] Other XR wrist RT min 3V* Age/Sex: 77 / F ADM Date: 09/17/22 [employer] Other XR wrist RT min 3V* Loc: [facility] Room: Type : [facility] [employer]) by [employer] Other XR wrist RT min 3V* Attending Dr: Eileen Holbrook MD [employer]) [employer] Other XR wrist RT min 3V* Copies to: Guadalupe Holbrook MD [employer]) by [employer] Other XR wrist RT min 3V* Ordering Provider: Guadalupe Holbrook MD [employer]) by [employer] Other XR wrist RT min 3V* Date of Service: 09/17/22 [employer]) [employer] Other XR wrist RT min 3V* XR/XR wrist RT min 3V*: Mass of right wrist [employer]) by [employer] Other XR wrist RT min 3V* CLINICAL DATA: Fall or right wrist mass at the radiocarpal joint and mass between the fourth and [employer]) by [employer] Other XR wrist RT min 3V* fifth metacarpal heads. [employer]) by [employer] Other XR wrist RT min 3V* RIGHT WRIST - 4 views [employer]) by [employer] Other XR wrist RT min 3V* COMPARISON: Right العلي nd 05/25/2021 [employer]) by [employer] Other XR wrist RT min 3V* AP, lateral, oblique and ulnar deviation views were obtained. There is osteopenia. No acute [employer] Other XR wrist RT min 3V* fractures or dislocation are identified. Minor subluxation is again seen at the second metacarpal [employer]) by [employer] Other XR wrist RT min 3V* phalangeal joint. Joint space narrowing is present at that site and some of the other metacarpal [employer]) by [employer] Other XR wrist RT min 3V* phalangeal joints where there is subchondral cystic change. There is also distal interphalangeal [employer](TM) by [employer] Other XR wrist RT min 3V* joint space narrowin g, greatest at the second and fifth fingers. There is minimal marginal [employer]) by [employer] Other XR wrist RT min 3V* spurring. Mild degenerative changes also seen at the first carpal metacarpal joint. There is soft [employer](TM) by [employer] Other XR wrist RT min 3V* tissue swelling over the dorsum of the hand 12 the metacarpal heads, greater medially. [employer](TM) by [employer] Other XR wrist RT min 3V* XR/XR wrist RT min 3V* [employer](TM) by [employer] Other XR wrist RT min 3V* IMPRESSION: [place] Other XR wrist RT min 3V* OSTEOPENIA AND DEGENERATIVE CHANGES. [employer](TM) by [employer] Other XR wrist RT min 3V* Impression dictated by: Callie Zuniga M.D.09/17/2022 12:31 PM [employer]) by [employer] Other XR wrist RT min 3V* Dictation Location: [place] [address] [employer](TM) by [employer] Other XR wrist RT min 3V* Transcribed By: LORE 09/17/22 1231 [employer](TM) by [employer] Other XR wrist RT min 3V* Dictated By: Callie Zuniga MD 09/17/22 1218 [employer](TM) by [employer] Other XR wrist RT min 3V* Signed By: [employer]MD(TM) by [employer] Other XR wrist RT min 3V* 09/17/22 1231 No rt Joosy Other Covid-19 PCR ([facility])on SARS-CoV-2 (COVID-19) RNA ALYSON+probe Ql (Unsp spec) Detected Abnormal NOT DETECTED [facility] Comment on above: Result Comment: This test is not yet approved or cleared by the [place] FDA. When there are no FDA-approved or cleared tests available, and other criteria are met, FDA can make tests available under an emergency access mechanism called an Emergency Use Authorization (EUA). The EUA for this test is supported by the Lodging Facilities Attendant of Health and Human Service's declaration that circumstances exist to justify the emergency use of in vitro diagnostics for the detection and/or diagnosis of the virus that causes COVID-19. This EUA will remain in effect for the duration of the COVID-19 declaration justifying emergency of IVDs, unless it is terminated or revoked by the FDA (after which the test may no longer be used). Performed By: #### C [facility] #### [facility] [address] [place] [address] Dr. Jean Brewer XR DEXA BONE DENSITYon 02-28 XR DEXA BONE DENSITY EXAMINATION: XR DEX A BONE DENSITY, 02/28/2022 9:31 AM EDT HISTORY: Primary ovarian failure COMPARISON: DEXA bone densitometry 02/28/2022 TECHNIQUE: Dual-energy X-ray absorptiometry (DEXA) bone density study performed for the axial skeleton. FINDINGS: SPINE ANALYSIS: Average bone mineral density is 1.020 g/cm2. T-score (standard deviation relative to young adult mean): -1.3 . Not previously evaluated. HIP ANALYSIS: Lowest bone mineral density is within the left femoral neck, 0.771 g/cm2. T-score (standard deviation relative to young adult mean): -1.9 . -1.4% change since prior study. IMPRESSION: World Bo Organization Classification: Osteopenia - Moderate Fracture Risk Electronically authenticated by: DAV RAMOS Date: 2022-02-28 11:48 Normal [facility] Q - SARS CoV2 COVID 19 Ab Ig Kieran 06-04-2021 SARS-CoV-2 (COVID-19) Ab IA Qn <1.00 Normal <1.00 [facility] Comment on above: Order Comment: [facility] Testing performed at: QPT, [facility], [address] [place] [address], [address] [place] [address], [place], [address], Abap Developer: Lorenzo Sanders MD [facility] Collection Date/Time: [facility] Results Received Date/Time: [id number] [facility] Reported Date/Time: [id number] Result Comment: This test is intended to help identify individuals with antibodies to SARS-CoV-2 (COVID-19). The results of this semi-quantitative test should not be interpreted as an indication or degree of immunity or protection from reinfection. A test result that is 1.00 or more (Positive) means antibodies to SARS-CoV-2 were detected in the blood sample by the test. This could mean that the individual may have an immune response to a recent or prior infection with SARS-CoV-2. Positive results may occur after COVID-19 vaccination, but the clinical significance of a positive antibody result for individuals that have received a COVID-19 vaccine is unknown, and the performance of the test has not been established in COVID-19 vaccinees. False positive results for the test may occur due to cross-reactivity from pre-existing antibodies or other possible causes. A test result that is less than 1.00 (Negative) means that antibodies were not detected in the blood sample by the test. This could mean that the individual has not been previously infected with SARS-CoV-2. The clinical significance of a negative antibody result for individuals that have received a COVID-19 vaccine is unknown. The performance of the test has not been established in COVID-19 vaccinees. False negative results for the test may occur if the individual's antibodies have not reached a sufficient level for the test to be able to detect them. Antibodies can take up to two to three weeks (sometimes longer) to develop after someone is infected. How long antibodies to SARS-CoV-2 last after infection is not known. This test should not be used to diagnose an active SARS-CoV-2 infection. If an active infection is suspected, direct molecular or antigen testing for SARS-CoV-2 is recommended. Please review the Fact Sheets available for healthcare providers and patients using the following websites: [email or web address] Healthcare Providers: For additional information please refer to: http://education.InNetwork.Printio.ru/faq/MLQ861 (This link is being provided for informational/educational purposes only.) This test has been authorized by the FDA under an Emergency Use Authorization (EUA) for use by authorized laboratories. The FDA authorized labeling is available on the [employer] website: www.Safecare.com/Covid19. Performed By: #### [id number] #### [facility] [address] [place] [address] Vitamin D 25-OHon 06-04-2021 VIT D 25 OH 138 ng/ml Normal >29 [facility] Comment on above: Order Comment: Speci men diluted to verify. Result Comment: Brittney min D Status Deficiency <20 ng/mL Insufficiency 20-29 ng/mL Optimal 30-100 ng/mL Possible Toxicity >=150 ng/mL Performed By: #### V ITD #### [facility] [address] [place], [place] [id number] Vital Signs Date Time Vital Sign Value Performing Clinician Facility 06-17-2024 11:13-0500 Body height 157.5 cm Carlos Alberto Sanchez MD Work Phone: [facility] 06-17-2024 11:13-0500 Body mass index (BMI) [Ratio] 26.16 kg/m2 Carlos Alberto Sanchez MD Work Phone: [facility] 06-17-2024 11:13-0500 Body weight 64.86 kg Carlos Alberto Sanchez MD Work Phone: [facility] 06-17-2024 11:13-0500 Diastolic blood pressure 88 mm[Hg] Carlos Alberto Sanchez MD Work Phone: [facility] 06-17-2024 11:13-0500 Heart rate 82 /min Carlos Alberto Sanchez MD Work Phone: [facility] 06-17-2024 11:13-0500 SaO2% (BldA) [Mass fraction] 97 % Carlos Alberto Sanchez MD Work Phone: [facility] 06-17-2024 11:13-0500 Systolic blood pressure 138 mm[Hg] Carlos Alberto Sanchez MD Work Phone: [facility] 05-17-2024 12:35-0500 Diastolic blood pressure 66 mm[Hg] Carlos Alberto Sanchez II Work Phone: [facility] 05-17-2024 12:35-0500 Heart rate 62 /min Carlos Alberto Sanchez II Work Phone: [facility] 05-17-2024 12:35-0500 Respiratory rate 16 /min Carlos Alberto Sanchez II Work Phone: [facility] 05-17-2024 12:35-0500 SaO2% (BldA) [Mass fraction] 96 % Carlos Alberto Sanchez II Work Phone: [facility] 05-17-2024 12:35-0500 Systolic blood pressure 133 mm[Hg] Carlos Alberto Sanchez II Work Phone: [facility] 05-17-2024 12:05-0500 Inhaled oxygen flow rate 6 L/min Carlos Alberto Sanchez II Work Phone: [facility] 05-17-2024 08:02-0500 Body height 157.48 cm Carlos Alberto Sanchez II Work Phone: [facility] 05-17-2024 08:02-0500 Body temperature 98.1 [degF] Carlos Alberto Sanchez II Work Phone: [facility] 05-17-2024 08:02-0500 Body weight 67 kg Carlos Alberto Sanchez II Work Phone: [facility] 02-18-2024 09:12-0400 Body height 157.5 cm Ellen Sorto MD Work Phone: [facility] 02-18-2024 09:12-0400 Body mass index (BMI) [Ratio] 26.7 kg/m2 Ellen Sorto MD Work Phone: [facility] 02-18-2024 09:12-0400 Body weight 66.22 kg Ellen Sorto MD Work Phone: [facility] 02-18-2024 09:12-0400 Diastolic blood pressure 74 mm[Hg] Ellen Sotro MD Work Phone: [facility] 02-18-2024 09:12-0400 Systolic blood pressure 140 mm[Hg] Ellen Sorto MD Work Phone: [facility] 12-04-2022 10:30-0400 Body height 157.48 cm Guadalupe Holbrook Other [employer] Other 12-04-2022 10:30-0400 Body mass index (BMI) [Ratio] 25.79 kg/m2 Guadalupe Holbrook Other [employer] Other 12-04-2022 10:30-0400 Body weight 63.96 kg Guadalupe Holbrook Other [employer] Other 10-25-2022 08:05-0400 Body height 157.48 cm II Carlos Alberto Sanchez Work Phone: [facility] 10-25-2022 08:05-0400 Body weight 65.77 kg II Carlos Alberto Sanchez Work Phone: [facility] 10-25-2022 08:05-0400 Diastolic blood pressure 88 mm[Hg] II Carlos Alberto Sanchez Work Phone: [facility] 10-25-2022 08:05-0400 Heart rate 72 /min II Carlos Alberto Sanchez Work Phone: [facility] 10-25-2022 08:05-0400 Respiratory rate 16 /min II Carlos Alberto Sanchez Work Phone: [facility] 10-25-2022 08:05-0400 SaO2% (BldA) [Mass fraction] 97 % II Carlos Alberto Sanchez Work Phone: [facility] 10-25-2022 08:05-0400 Systolic blood pressure 173 mm[Hg] II Carlos Alberto Sanchez Work Phone: [facility] 10-13-2022 10:25-0400 Body height 157.48 cm Jess Moss Other [employer] Other 10-13-2022 10:25-0400 Body mass index (BMI) [Ratio] 25.93 kg/m2 Jess Moss Other [employer] Other 10-13-2022 10:25-0400 Body temperature 99.4 [degF] Jess Moss Other [employer] Other 10-13-2022 10:25-0400 Body weight 64.32 kg Jess Moss Other [employer] Other 10-13-2022 10:25-0400 Diastolic blood pressure 85 mm[Hg] Jess Moss Other [employer] Other 10-13-2022 10:25-0400 Respiratory rate 18 /min Jess Moss Other [employer] Other 10-13-2022 10:25-0400 SaO2% (BldA) [Mass fraction] 93 % Jess Moss Other [employer] Other 10-13-2022 10:25-0400 Systolic blood pressure 141 mm[Hg] Jess Moss Other [employer] Other Encounters Encounter Date Encounter Type Care Provider Facility Start: 10-06-2024 End: 10-06-2024 Bambochay flowsheet Carlos Alberto Sanchez MD Work Phone: [facility] Start: 10-06-2024 End: 10-06-2024 Chalino Sanchez MD Work Phone: [facility] Start: 07-13-2024 End: 07-13-2024 ambulatory Carlos Alberto Sanchez II Work Phone: [facility] Work Phone: Start: 07-13-2024 End: 07-13-2024 Patient encounter procedure Carlos Alberto Sanchez II Work Phone: [facility] Work Phone: Start: 06-17-2024 End: 06-17-2024 Office outpatient visit 25 minutes Carlos Alberto Sanchez MD Work Phone: [facility] Comment on above: Atherosclerosis of n ative coronary artery of [place] heart without angina pectoris (CMS/HCC) (Primary Dx); Rheumatoid arthritis involving multiple sites with positive rheumatoid factor (CMS/HCC); Arthritis of wrist, left; Benign essential hypertension (CMS/HCC) Start: 06-17-2024 End: 06-17-2024 ambulatory CARLOS ALBERTO SANCHEZ Not Available Start: 06-15-2024 End: 06-15-2024 Patient encounter procedure Carlos Alberto Sanchez II Work Phone: [facility] Work Phone: Start: 06-01-2024 End: 06-01-2024 Patient encounter procedure Carlos Alberto Sanchez II Work Phone: [facility] Work Phone: Start: 05-18-2024 End: 05-18-2024 Bamboo flowsheet Leela Keri Pinto AUD Work Phone: [facility] Start: 05-18-2024 End: 05-18-2024 Bamboo flowsheet Leela Keri Pinto AUD Work Phone: [facility] Start: 05-18-2024 End: 05-18-2024 ambulatory LEELA Keri PINTO Not Available Start: 05-18-2024 End: 05-18-2024 Patient encounter procedure Leelaradha Pinto AUD Work Phone: [facility] Comment on above: Sensorineural hearin g loss, bilateral (Primary Dx) Start: 05-17-2024 Non-patient / Non-visit Carlos Alberto Sanchez II Work Phone: [facility] Work Phone: Start: 05-17-2024 End: 05-17-2024 Admission to same day surgery center Carlos Alberto Sanchez II Work Phone: [facility] Start: 05-17-2024 End: 05-17-2024 ambulatory Carlos Alberto Sanchez Facility:[facility] Start: 05-05-2024 End: 05-05-2024 Patient encounter procedure Carlos Alberto Sanchez II Work Phone: [facility] Work Phone: Start: 05-05-2024 End: 05-05-2024 ambulatory Carlos Alberto Sanchez II Work Phone: [facility] Work Phone: Start: 05-05-2024 Encounter for preprocedural laboratory examination Guadalupe Holbrook [facility] Start: 04-30-2024 End: 04-30-2024 ambulatory [facility] Work Phone: Start: 04-30-2024 End: 04-30-2024 Patient encounter procedure [facility] Work Phone: Start: 04-21-2024 End: 04-21-2024 Telephone encounter Leela Pinto AUD Work Phone: [facility] Start: 04-13-2024 End: 04-13-2024 Bamboo flowsheet Leela Pinto AUD Work Phone: [facility] Start: 04-13-2024 End: 04-13-2024 Bamboo flowsheet Leela Pinto AUD Work Phone: [facility] Start: 04-13-2024 End: 04-13-2024 Patient encounter procedure Leelaradha Pinto AUD Work Phone: [facility] Comment on above: Sensorineural hearin g loss, bilateral (Primary Dx) Start: 04-13-2024 End: 04-13-2024 ambulatory LEELA Keri PINTO Not Available Start: 02-18-2024 End: 02-18-2024 Bamboo flowsheet Ellen Sorto MD Work Phone: [facility] Start: 02-18-2024 End: 02-18-2024 Bamboo flowsheet Ellen Sorto MD Work Phone: [facility] Start: 02-18-2024 End: 02-18-2024 Office outpatient new 30 minutes Ellen Sorto MD Work Phone: [facility] Comment on above: Bilateral impacted c erumen (Primary Dx); Sensorineural hearing loss (SNHL), bilateral Start: 02-18-2024 End: 02-18-2024 ambulatory ELLEN SORTO Not Available Start: 02-16-2024 End: 02-16-2024 Bamboo flowsheet Anna Ramon Virtway CCC-A Work Phone: [facility] Start: 02-16-2024 End: 02-16-2024 Bamboo flowsheet Anna Ramon Virtway CCC-A Work Phone: [facility] Start: 02-16-2024 End: 02-16-2024 Clinical Support Anna Ramon Virtway CCC-A Work Phone: [facility] Comment on above: Sensorineural hearin g loss (SNHL) of both ears (Primary Dx); Tinnitus, bilateral; Impaired auditory discrimination, right Start: 12-17-2023 End: 12-17-2023 ambulatory CARLOS ALBERTO SANCHEZ Not Available Start: 10-14-2023 End: 10-14-2023 ambulatory II Carlos Alberto Sanchez Work Phone: [facility] Work Phone: Start: 10-14-2023 End: 10-14-2023 Patient encounter procedure II Carlos Alberto Sanchez Work Phone: [facility] Work Phone: Start: 09-09-2023 End: 09-09-2023 ambulatory II Carlos Alberto Sanchez Work Phone: [facility] Work Phone: Start: 09-09-2023 End: 09-09-2023 Patient encounter procedure II Carlos Alberto Sanchez Work Phone: [facility] Work Phone: Start: 08-15-2023 End: 08-15-2023 ambulatory II Carlos Alberto Sanchez Work Phone: [facility] Work Phone: Start: 08-15-2023 End: 08-15-2023 Patient encounter procedure II Carlos Alberto Sanchez Work Phone: [facility] Work Phone: Start: 08-04-2023 End: 08-04-2023 ambulatory II Carlos Alberto Sanchez Work Phone: [facility] Work Phone: Start: 08-04-2023 End: 08-04-2023 Departed Referred II Carlos Alberto Sanchez Work Phone: [facility] Work Phone: Start: 07-30-2023 End: 07-30-2023 ambulatory CARLOS ALBERTO SANCHEZ Not Available Start: 07-24-2023 Telephone encounter Carlos Alberto peters MD Work Phone: [facility] Comment on above: Med Refill (/folic a thad (Folvite) 1 MG tablet /TO [facility] [place]) Start: 07-23-2023 Office outpatient vi sit 25 minutes Guadalupe Holbrook [facility] Start: 07-23-2023 End: 07-23-2023 Patient encounter procedure II Carlos Alberto Sanchez Work Phone: [facility] Start: 07-23-2023 End: 07-23-2023 ambulatory II Carlos Alberto Sanchez Work Phone: [facility] Work Phone: Start: 07-17-2023 End: 07-17-2023 ambulatory CARLOS ALBERTO SANCHEZ Not Available Start: 02-25-2023 End: 02-25-2023 ambulatory Guadalupe Holbrook Other [employer] Other Start: 02-25-2023 Postop follow up vis it related to original px Guadalupe Yusef [facility] Start: 01-28-2023 End: 01-28-2023 ambulatory Guadalupe Holbrook Other Swift[employer]MD(TM) by [employer] Other Start: 01-28-2023 Postop follow up vis it related to original px Guadalupe Calvey [facility] Start: 12-16-2022 End: 12-16-2022 ambulatory II Carlos Alberto Sanchez Work Phone: [facility] Work Phone: Start: 12-16-2022 End: 12-16-2022 Departed Referred II Carlos Alberto Sanchez Work Phone: [facility] [place] Work Phone: Start: 12-04-2022 Office outpatient vi sit 25 minutes Guadalupe Holbrook [facility] Start: 12-04-2022 End: 12-04-2022 ambulatory II Carlos Alberto Sanchez Work Phone: [facility] Work Phone: Start: 12-04-2022 End: 12-04-2022 Patient encounter procedure II Carlos Alberto Sanchez Work Phone: [facility]-Electrodiagnostics Work Phone: Start: 10-25-2022 End: 10-25-2022 ambulatory II Carlos Alberto Sanchez Work Phone: [facility] Work Phone: Start: 10-25-2022 End: 10-25-2022 Patient encounter procedure II Carlos Alberto Sanchez Work Phone: [facility] [place] Work Phone: Start: 10-14-2022 End: 10-14-2022 ambulatory II Carlos Alberto Sanchez Work Phone: [facility] Work Phone: Start: 10-14-2022 End: 10-14-2022 Patient encounter procedure II Carlos Alberto Sanchez Work Phone: [facility] [place] Work Phone: Start: 10-13-2022 End: 10-13-2022 ambulatory Jess Moss Other [employer](TM) by [employer] Other Start: 10-13-2022 Office outpatient vi sit 15 minutes Jess Moss [facility] [place] Start: 10-08-2022 End: 10-08-2022 Patient encounter procedure II Carlos Alberto Sanchez Work Phone: [facility] [address] Work Phone: Start: 09-17-2022 Office outpatient ne w 30 minutes Guadalupe Holbrook [facility] Start: 09-17-2022 End: 09-17-2022 ambulatory II Carlos Alberto Sanchez Work Phone: [facility] Work Phone: Start: 09-17-2022 End: 09-17-2022 Patient encounter procedure II Carlos Alberto Sanchez Work Phone: [facility]-X[facility] Start: 07-28-2022 End: 07-28-[address] CARLOS ALBERTO SANCHEZ Facility:[facility]1 Start: 02-28-2022 End: 03-01-[address] CALLIE ANGULO Facility:[facility]1 Procedures Date Procedure Procedure Detail Performing Clinician Start: 05-17-2024 OR Finger Trigger Release/Cyst/Mass Exc (Right) Carlos Alberto Sanchez II Work Phone: Start: 02-16-2024 AUDITORY FUNCTION TESTS Anna Hoffman [facility] Work Phone: Start: 07-23-2023 Plain X-ray of left hand II Carlos Alberto Sanchez Work Phone: Start: 10-25-2022 MRI of right wrist II Trell Sanchez Work Phone: Start: 10-25-2022 XR pre/post mri xray II Carlos Alberto Sanchez Work Phone: Start: 10-25-2022 MRI of right hand II Giuseppe Sanchez Work Phone: Start: 09-17-2022 Plain X-ray of right wrist II Carlos Alberto Sanchez Work Phone: History of appendectomy Hx of appendectom y II Carlos Alberto Sanchez Work Phone: Plan of Treatment Date Care Activity Detail Author Start: 02-21-2025 Influenza vaccination Influenz a Vaccine (Season Ended) [facility] Start: 12-16-2024 End: 12-16-2024 Patient encounter procedure 12/16/2024 10:00 AM EDT Office Visit [facility] [address] [place] [address] Carlos Alberto Sanchez MD [address] [place] [address] [facility] Start: 10-06-2024 End: 10-06-2024 Patient encounter procedure 10/06/2024 8:30 AM EDT Office Visit [facility] [address] [place] [address] Carlos Alberto Sanchez MD [address] [place] [address] Arrived [facility] Comment on above: Arrived Start: 07-17-2024 Medicare Annual Wellness (AWV) Medicare Annual Wellness (AWV) [facility] Start: 06-17-2024 End: 06-17-2024 Patient encounter procedure 06/17/2024 1:00 PM EST Office Visit [facility] [address] [place] [address] Carlos Alberto Sanchez MD [address] [place] [address] [facility] Start: 05-18-2024 End: 05-18-2024 Patient encounter procedure 05/18/2024 9:00 AM EST Office Visit [facility] [address] [place] [address] Leela Pinto, [facility] [address] [place] [address] [facility]KKI Start: 05-17-2024 [facility] Start: 05-17-2024 [facility] Start: 04-13-2024 End: 04-13-2024 Patient encounter procedure [facility] Comment on above: Arrived Start: 02-22-2024 Influenza vaccination Influenza Vacc ine (#1) [facility] Start: 02-18-2024 End: 02-18-2024 Patient encounter procedure [facility] Comment on above: Bilateral hearing lo ss, unspecified hearing loss type Start: 02-16-2024 End: 02-16-2024 Clinical Support 02/16/2024 9:45 AM EDT Clinical Support [facility] [address] [place] [address] Anna Hoffman, [facility] [address] [place] [address] Arrived [facility] Comment on above: Arrived Start: 12-17-2023 End: 12-17-2023 Patient encounter procedure 12/17/2023 1:00 PM EDT Office Visit [facility] [address] [facility] [address] [place] [address] Carlos Alberto Sanchez MD [address] [facility] [address] [place] [address] [facility] Start: 02-21-2023 Influenza vaccination Influenza Vacc ine (#1) [facility] Patient Education Know your Meds [facility] Work Phone: Patient referral [facility] Work Phone: Immunizations Immunization Date Immunization Notes Care Provider Fa [facility] 2020 Influenza, High-dose Seasonal, Quadrivalent, Preservative Free Carlos Alberto Sanchez MD Work Phone: [facility] 2020 influenza virus vacc ine, unspecified formulation Carlos Alberto Sanchez MD Work Phone: [facility] 03-15-2019 Influenza, High-dose Seasonal, Quadrivalent, Preservative Free Carlos Alberto Sanchez MD Work Phone: [facility] 03-15-2019 pneumococcal conjuga te vaccine, 13 valent Carlos Alberto Sanchez MD Work Phone: [facility] 03-15-2019 zoster vaccine recombinant D tonya Sanchez MD Work Phone: [facility] 04-02-2018 seasonal influenza, intradermal, preservative free Carlos Alberto Sanchez MD Work Phone: [facility] 07-23-2016 pneumococcal conjuga te vaccine, 13 valent Carlos Alberto Sanchez MD Work Phone: [facility] 07-23-2016 pneumococcal Conjuga te, unspecified formulation Carlos Alberto Sanchez MD Work Phone: [facility] 2016 pneumococcal polysaccharide vaccine, 23 valent Carlos Alberto Sanchez MD Work Phone: [facility] Payers Date Payer Category Payer Self-pay 2021 Medicare ANTHEM MEDICARE ADVANTAGE ANTHEM MEDICARE ADVANTAGE [id number] 2021-Present [id number] 2021 Medicare (Managed Care) [facility] ADVANTAGE [id number] 5 1959 Unknown [id number] 1944 Unknown [id number] [id number] .2.593 1944 Unknown [id number] [id number] .2.593 1944 Unknown [id number] 2.16.840.1.282750.3.579 .2.1259 1944 Unknown [id number] [id number] .2.1259 1944 Unknown [id number] 2.16.840.1.954391.3.579 .2.1259 1944 Unknown [id number] [id number] .2.1259 1944 Unknown [id number] 2.16.840.1.841255.3.579 .2.1259 1944 Unknown [id number] 2.16.840.1.097528.3.579 .2.1259 1944 Unknown [id number] 2.16.840.1.750773.3.579 .2.1259 1944 Unknown [id number] [id number] .2.1259 Medicare Medicare [id number] Private Health Insurance [facility] Insurance [facility] [id number] Unknown [id number] [id number] .2.531 Unknown [id number] 2.16.840.1.057089.3.579 .2.531 Unknown [id number] [id number] .2.531 Unknown [id number] .2.531 Social History Date Type Detail Facility Unknown if ever smoked [facility] Work Phone: Start: 12-22-2022 End: 06-16-2024 Sex Assigned At [facility] Start: 1945 Sex Assigned At Female F [facility] Start: 12-19-2022 End: 05-17-2024 Tobacco smoking status NHIS Never smoked tobacco [facility] Start: 12-19-2022 Tobacco use and exposure Smokeless tobacco non-user [facility] Start: 07-17-2023 End: 06-17-2024 Alcohol intake Lifetime non-drinker (finding) [facility] Start: 12-22-2022 End: 06-16-2024 History of Social function [facility] How often do you get together with friends or relatives? Patient refused [facility] Are you now , , , , never or living with a partner? Refused [facility] Start: 1945 Sex Assigned At Not on file N [facility] Start: 04-30-2024 End: 07-13-2024 Sex Female (finding) [facility] Do you feel stress - tense, restless, nervous, or anxious, or unable to sleep at night because your mind is troubled all the time - these days [OSQ] Not at all [facility] Goals Date Patient Goal Desired Activity /State Clinical Notes 08-10-2020 to 06-17-2024 Carlos Alberto Sanchez MD - 06/17/2024 11:30 AM NIKKI Pace - 05/18/2024 9:00 AM EST Note Date & Type Note Facility 06-17-2024 History of Presen t illness Narrative Images from the original note were not included. Subjective Patient ID: ePña Ruth is a 79 y.o. female who presents for Hypertension. Hypertension Patient is here for follow-up of elevated blood pressure. Blood pressure is well controlled at home. Cardiac symptoms: none. Patient denies chest pressure/discomfort. Cardiovascular risk factors: advanced age (older than 55 for men, 65 for women) and hypertension. Pt has no concerns Hypertension Pertinent negatives include no chest pain, palpitations or shortness of breath. Current Outpatient Medications on File Prior to Visit Medication Sig Dispense Refill HYDROcodone-acetaminophen ([place]) 5-325 MG tablet amLODIPine-valsartan (Exforge) 5-320 MG tablet Take 1 tablet by mouth Daily 100 tablet 3 folic acid (Folvite) 1 MG tablet Take 1 tablet (1 mg) by mouth Daily 100 tablet 1 hydroxychloroquine (Plaquenil) 200 MG tablet Take 1 tablet (200 mg) by mouth in the morning. 100 tablet 3 meloxicam (Mobic) 7.5 MG tablet Take 1 tablet (7.5 mg) by mouth Daily 100 tablet 3 pantoprazole (ProtoNix) 40 MG EC tablet Take 1 tablet (40 mg) by mouth Daily 100 tablet 3 potassium chloride CR (Klor-Con) 10 MEQ ER tablet Take 1 tablet (10 mEq) by mouth Daily 100 tablet 3 simvastatin (Zocor) 40 MG tablet Take 1 tablet (40 mg) by mouth Daily 100 tablet 3 No current facility-administered medications on file prior to visit. I have reviewed and reconciled the history and medication list with the patient today. No Known Allergies Social History Tobacco Use Smoking status: Never Smokeless tobacco: Never Substance Use Topics Alcohol use: Never Drug use: Never Family History Problem Relation Name Age of Onset Hypertension Mother Lorraine Christensen Diabetes Mother Lorraine Christensen Cancer Mother Lorraine Christensen Stroke Father Valorie Christensen Hypertension Father Valorie Christensen Cancer Father Valorie Christensen Stroke Brother Vidal Christensen Past Medical History: Diagnosis Date Fibromyalgia GERD (gastroesophageal reflux disease) HL (hearing loss) Hyperlipemia (CMS/HCC) Hypertension (CMS/HCC) Osteoporosis (CMS/HCC) RA (rheumatoid arthritis) (CMS/HCC) Rosacea Shingles Past Surgical History: Procedure Laterality Date APPENDECTOMY CARDIAC CATHETERIZATION 2007 CARPAL TUNNEL RELEASE Right 08/15/2021 dr posada CARPAL TUNNEL RELEASE Left 10/10/2021 dr posada CATARACT EXTRACTION W/ INTRAOCULAR LENS IMPLANT COLONOSCOPY HYSTERECTOMY TRIGGER FINGER RELEASE Right 03/25/[address] posada TRIGGER FINGER RELEASE Left 04/08/[address] posada TRIGGER FINGER RELEASE Right 05/17/2024 Rt Small Finger. Right Middle and Ring Finger Extensor Tendon Realignment TUBAL LIGATION Visit Vitals BP 138/88 Pulse 82 Ht 5' 2 Wt 143 lb SpO2 97% BMI 26.16 kg/m Smoking Status Never BSA 1.69 m Review of Systems Respiratory: Negative for shortness of breath. Cardiovascular: Negative for chest pain and palpitations. Objective Physical Exam Constitutional: General: She is not in acute distress. Appearance: Normal appearance. She is well-developed. HENT: Head: Normocephalic and atraumatic. Right Ear: Tympanic membrane and ear canal normal. Left Ear: Tympanic membrane and ear canal normal. Mouth/Throat: Mouth: Mucous membranes are moist. Eyes: General: No scleral icterus. Conjunctiva/sclera: Conjunctivae normal. Neck: Thyroid: No thyromegaly. Cardiovascular: Rate and Rhythm: Normal rate and regular rhythm. Heart sounds: Normal heart sounds. No murmur heard. Pulmonary: Effort: Pulmonary effort is normal. No respiratory distress. Breath sounds: Normal breath sounds. No wheezing, rhonchi or rales. Lymphadenopathy: Cervical: No cervical adenopathy. Skin: General: Skin is warm and dry. Neurological: General: No focal deficit present. Mental Status: She is alert and oriented to person, place, and time. Psychiatric: Mood and Affect: Mood normal. Behavior: Behavior normal. Assessment/Plan Diagnoses and all orders for this visit: Atherosclerosis of fed[place] coronary artery of [place] heart without angina pectoris (CMS/HCC) - The patient is experiencing no symptoms from this condition currently, it is considered medically controlled and no change in current therapies are planned. Rheumatoid arthritis involving multiple sites with positive rheumatoid factor (CMS/HCC) - Handicap Placard 5 Years Arthritis of wrist, left - Handicap Placard 5 Years Benign essential hypertension (CMS/HCC) - This is a chronic medical condition that is stable since last assessment. No changes in treatment are suggested at this time. Follow up in about 6 months (around 12/16/2024) for Wellness. documented in this encounter [facility] 05-18-2024 History of Presen t illness Narrative HAF: Pt was seen today for the fitting of her SignEcometrica HCS Branded 513 JOEL Li T's coupled to 2M size receivers and 7mm open domes. Aids were set to new user, VC active. No further adjustments were made. Insertion was difficult for patient, as she recently had tendon surgery in her hand, so her will help. Discussed operation of membership coordinator and care/maintenance. DL Theodora on husbands phone and reviewed features. He will help DL the Theodora on her phone when they get home. Discussed warranty and trial period. Pt was unable to be scheduled, as EPIC was down, but she is to let us know if any problems were to arise. documented in this encounter [facility] 04-30-2024 Evaluation note Diagnosis Onset Date Resolution Arthritis of left wrist acute N ovember 2023 10:30am Dupuytrens contracture acute No vember 2023 10:30am Nontraumatic subluxation of extensor tendon at metacarpophalangeal joint of acute April 30, 2024 10:30am Other specified postprocedural states acute April 302023 10:30am Trigger finger, left index finger acute April 30, 2024 10:30am Trigger finger, left little finger acute April 30, 2024 10:30am Trigger finger, right ring finger acute April 30, 2024 10:30am [facility] Work Phone: 1(637) 392-373011-08-2024 Evaluation note* Diagnosis Onset Date Resolution Status Admit Date Arthritis of left wrist acute N ov2023 10:30am Dupuytrens contracture acute No vember 2023 10:30am Nontraumatic subluxation of extensor tendon at metacarpophalangeal joint of acute Apr 10:30am Other specified postprocedur al states acute April 30 10:30am Trigger finger, left index finger ac north fork April 30, 2024 10:30am Trigger finger, left little finger a cute April 30, 2024 10:30am Trigger finger, right ring finger ac north [place] April 30, 2024 10:30am Arthritis of left wrist acute D ec2023 10:32am Dupuytrens contracture acute De cember 2023 10:32am Nontraumatic subluxation of extensor tendon at metacarpophalangeal joint of acute Dec 2023 10:32am Other specified postprocedur al states acute June 01 10:32am Trigger finger, left index finger ac north fork June 01, 2024 10:32am Trigger finger, left little finger a cute June 01, 2024 10:32am Trigger finger, right ring finger ac north [place] June 01, 2024 10:32am Arthritis of left wrist acute D ecember 2023 8:28am Dupuytrens contracture acute De cember 2023 8:28am Nontraumatic subluxation of extensor tendon at metacarpophalangeal joint of acute Dec ember 2023 8:28am Other specified postprocedur al states acute June 15, 2 024 8:28am Trigger finger, left index finger ac north [place] June 15, 2024 8:28am Trigger finger, left little finger a cute June 15, 2024 8:28am Trigger finger, right ring finger ac north [place] June 15, 2024 8:28am Arthritis of left wrist acute J anuary 2024 9:10am Dupuytrens contracture acute Ja nuary 2024 9:10am Nontraumatic subluxation of extensor tendon at metacarpophalangeal joint of acute Caesar uary 2024 9:10am Other specified postprocedur al states acute July 13 9:10am Trigger finger, left index finger ac north [place] July 13, 2024 9:10am Trigger finger, left little finger a cute July 13, 2024 9:10am Trigger finger, right ring finger ac north fork July 13, 2024 9:10am [facility] Work Phone: 1(785) 911-522010-30-2024 Telephone encounter Note* Telephone Encounter - NIKKI Munoz - 04/21/2024 11:55 AM EDT Received message that patient wanted to proceed with an order. Order placed today for 2 HCS [id number] Linda Cueto (Signia 5IX RICs) in beige with size 2M receivers. [facility] Work Phone: 1(600) 532-665610-30-2024 Miscellaneous Notes* Telephone Encounter - NIKKI Munoz - 04/21/2024 11:55 AM EDT Received message that patient wanted to proceed with an order. Order placed today for 2 HCS [id number] Linda Cueto (Signia 5IX RICs) in beige with size 2M receivers. documented in this [facility]10-22-2024 History of Present illness Narrative* NIKKI Munoz - 04/13/2024 9:00 AM EDT HAD: Pt was seen today to discuss hearing aid options. She has benefits through [facility] ($3000 benefit plan through [employer]). Her son mentioned research on Jabra instruments. Informed him of the manufacturers on the approved devices list provided by the insurance that we can work with (Signia, Phonak, Mayelin). We can not dispense Jabra products. Patient would like a JOEL style. She would like a rechargeable option, particularly a rechargeable case that holds its own charge without being plugged in. Informed patient that this is an option with Signia, but would be an additional charge (as it does not come standard). Pt's son also has researched tap control to answer phone calls. Informed him that this is an option with Phonak products, only available in advanced and premium models. Gave patient pricing options on Signia RICs and Phonak RICs. Patient would be a size 2 core composer machine tender if interested in proceeding with an order. She will call to order. She would need to tell us which application developer manager, the level of technology, and what color device. Patient is also considering Belltone, as they offer a5-6 year warranty plan. [id number] History of Present illness Narrative* Ellen Sorto MD - 02/18/2024 9:20 AM EDT Images from the original note were not included. Subjective Patient ID: Peña Ruth is a 78 y.o. female who presents for Hearing Loss (Audio 02/16/24) Pt c/o a gradual h/o harinder hearing loss. Audio 02/15 shows harinder downsloping SNHL and normal tymps. Review of Systems All other systems reviewed and are negative. Family History Problem Relation Name Age of Onset Hypertension Mother Lorraine Christensen Diabetes Mother Lorraine Christensen Cancer Mother Lorraine Christensen Stroke Father Valorie Christensen Hypertension Father Valorie Christensen Cancer Father Valorie Christensen Stroke Brother Vidal Christensen Active Ambulatory Problems Diagnosis Date Noted Abnormal results of liver function studies 12/19/2022 Allergic rhinitis, unspecified 12/19/2022 Arrest of bone development or growth 12/19/2022 Arthritis of right hand 12/19/2022 Arthritis of right wrist 12/19/2022 Atherosclerosis of [place] coronary artery of [place] heart without angina pectoris ([facility]/HCC) 12/19/2022 Benign essential hypertension ([facility]/HCC) 12/19/2022 Carpal tunnel syndrome of right wrist 12/19/2022 Diverticulosis 12/19/2022 Entrapment of left ulnar nerve 12/19/2022 GALEN (generalized anxiety disorder) ([facility]/HCC) 12/19/2022 GERD (gastroesophageal reflux disease) 12/19/2022 Impaired fasting glucose 12/19/2022 Left lumbar radiculopathy 12/19/2022 Mixed hyperlipidemia (CMS/HCC) 12/19/2022 Myalgia 12/19/2022 Fibromyalgia 12/19/2022 Other chronic pain 12/19/2022 Other primary ovarian failure 12/19/2022 Rheumatoid arthritis involving multiple sites with positive rheumatoid factor ([facility]/HCC) 12/19/2022 Rheumatoid arthritis of right hand ([facility]/HCC) 12/19/2022 Rosacea 12/19/2022 Sciatica 12/19/2022 Sensorineural hearing loss, bilateral 12/19/2022 Tinnitus 12/19/2022 Vitamin D deficiency 12/19/2022 Resolved Ambulatory Problems Diagnosis Date Noted Disorder of lung 12/19/2022 Past Medical History: Diagnosis Date HL (hearing loss) Hyperlipemia (CMS/HCC) Hypertension ([facility]/HCC) Osteoporosis (CMS/HCC) RA (rheumatoid arthritis) ([facility]) Shingles Past Surgical History: Procedure Laterality Date APPENDECTOMY CARDIAC CATHETERIZATION 2006 CARPAL TUNNEL RELEASE Right 08/15/2021 dr posada CARPAL TUNNEL RELEASE Left 10/10/2021 dr posada CATARACT EXTRACTION W/ INTRAOCULAR LENS IMPLANT COLONOSCOPY HYSTERECTOMY TRIGGER FINGER RELEASE Right 03/25/[address] posada TRIGGER FINGER RELEASE Left 04/08/[address] posada TUBAL LIGATION Allergies Allergen Reactions Azithromycin Unknown Leflunomide Unknown Current Outpatient Medications on File Prior to Visit Medication Sig Dispense Refill folic acid (Folvite) 1 MG tablet Take 1 tablet (1 mg) by mouth Daily 100 tablet 1 hydroxychloroquine (Plaquenil) 200 MG tablet TAKE ONE TABLET BY MOUTH EVERY MORNING 90 tablet 0 meloxicam (Mobic) 7.5 MG tablet Take 1 tablet (7.5 mg) by mouth in the morning. 90 tablet 3 pantoprazole (ProtoNix) 40 MG EC tablet Take 1 tablet (40 mg) by mouth Daily 100 tablet 2 potassium chloride CR (Klor-Con) 10 MEQ ER tablet Take 1 tablet (10 mEq) by mouth in the morning. 90 tablet 3 simvastatin (Zocor) 40 MG tablet Take 1 tablet (40 mg) by mouth in the morning. 100 tablet 3 amLODIPine-valsartan (Exforge) 5-320 MG tablet Take 1 tablet by mouth in the morning. 90 tablet 3 No current facility-administered medications on file prior to visit. Objective Last Recorded Vitals Vitals: 02/18/24 0912 BP: 140/74 ENT Physical Exam Constitutional Appearance: patient appears well-developed, well-nourished and well-groomed, Head and Face Appearance: head appears normal and face appears atraumatic; Ear Tympanic Membranes: right tympanic membrane normal; left tympanic membrane normal; Ear comments: Harinder cerumen impaction Nose External Nose: nares patent bilaterally; external nose normal; Internal Nose: septum normal; Oral Cavity/Oropharynx Tongue: normal; Oral mucosa: normal; Hard palate: normal; Soft palate: normal; Tonsils: normal; Neck Neck: neck normal; neck palpation normal; Thyroid: thyroid normal; Respiratory Inspection: breathing unlabored; normal breathing rate; Auscultation: breath sounds are clear; Cardiovascular Inspection: extremities are warm and well perfused; no peripheral edema present; Auscultation: regular rate and rhythm; Patient ID: Peña Ruth is a 78 y.o. female. Procedures Cerumen was removed from the ears using binocular microscopy under micro with suction, curette and foreceps Assessment/Plan Diagnoses and all orders for this visit: Bilateral impacted cerumen Sensorineural hearing loss (SNHL), bilateral - Ambulatory referral to ENT Pt has harinder SNHL and would clearly benefit from العلي. Appt made. Ears debrided documented in this [facility]08-26-2024 History of Present illness Narrative* KARUNA Hodge - 02/16/2024 9:45 AM EDT History: Pt was referred to ENT because of bilateral tinnitus and hearing loss. Pt has history of bilateral sensorineural hearing loss and right tinnitus. Last audio was in October 2018. Pt states she is having difficulty hearing and periodically hears a gurgling sound in the ears. Pt denies exposure to excessive noise. Otoscopic Exam: Right Ear: Cerumen Left Ear: Non-occlusive cerumen Pure Tone Audiometry Right Ear: Mild sloping to profound sensorineural hearing loss above 500 Hz Left Ear: Mild sloping to severe sensorineural hearing loss Speech Audiometry Right SRT = 45 dB and word discrimination score at 75 dBHL (masked) = 80% Left SRT = 10 dB and word discrimination score at 75 dBHL (masked) = 84% Tympanometry Right Ear: Type A tympanogram Left Ear: Type A tympanogram documented in this [facility]01-31-2024 Evaluation note* Encounter Date Diagnosis Assessment Notes Treatment Notes Treatment Clinical Notes Jun, Arthritis of left wrist (ICD-10 - M19.032) Jun, Trigger finger, left index finger (ICD-10 - M65.322) She would like to proceed with surgery. We will plan a left index trigger finger release, extensor tendon relignment left small finger PIP, and left wrist cortisone injection. All aspects of surgery were discussed. We will send in a medrol dose pack for pain control until surgery. All questions were answered. Can call with future questions or concerns. She will follow up post op. Jun, Synovitis (ICD-10 - M65.9) Jun, Left hand pain (ICD-10 - M79.642) Jun, Mass of right wrist (ICD-10 - R22.31) Jun, Trigger thumb, right thumb (ICD-10 - M65.311) Jun, Dupuytrens contracture (ICD-10 - M72.0) Jun, Other specified postprocedural states (ICD-10 - Z98.890) [employer] Other 09-05-2023 Evaluation note* Encounter Date Diagnosis Assessment Notes Treatment Notes Treatment Clinical Notes Feb, Mass of right wrist (ICD-10 - R22.31) Feb, Trigger thumb, right thumb (ICD-10 - M65.311) Feb, Dupuytrens contracture (ICD-10 - M72.0) Feb, Other specified postprocedural states (ICD-10 - Z98.890) Instructed to use heat and massage. May return to activities as tolerated. Instructed to use night splints as well. Instructed to contact the office with any questions or concerns. [employer] Other 08-08-2023 Evaluation note* Encounter Date Diagnosis Assessment Notes Treatment Notes Treatment Clinical Notes Jan, Mass of right wrist (ICD-10 - R22.31) Jan, Trigger thumb, right thumb (ICD-10 - M65.311) Discussed with patient she is progressing well from surgery. Discussed with patient to continue with motion and strength exercises. Discussed if she continues to have pain swelling due to the scar we can preform a cortisone injection. Jan, Dupuytrens contracture (ICD-10 - M72.0) Jan, Other specified postprocedural states (ICD-10 - Z98.890) [employer] Other 06-14-2023 Evaluation note* Encounter Date Diagnosis Assessment Notes Treatment Notes Treatment Clinical Notes Nov, Mass of right wrist (ICD-10 - R22.31) We will proceed with excision soft tissue mass right hand thumb and small finger MCP Nov, Dupuytrens contracture (ICD-10 - M72.0) [employer] Other 04-23-2023 Evaluation note* Encounter Date Diagnosis Assessment Notes Treatment Notes Treatment Clinical Notes Sep, Bronchitis (ICD-10 - J40) Patient declines/refuses testing today in office. Discussed diagnosis with patient in detail. Advised patient that cough may linger for 3 weeks. Will treat today with antibiotic. Reviewed allergies and recent antibiotic use. Advised to take medications as prescribed, reviewed side effects of steroid, take with food and plenty of water, finish entire course. Encouraged supportive care as directed, push fluids and rest, may use Tylenol as needed for fever/discomfort, cool mist humidifier. Use Tessalon Perles and albuterol inhaler as directed. Patient to follow up with PCP in 2-3 days. Immediate eval if SOB, difficulty breathing, chest pain, dizziness, or other concerning symptoms. Patient verbalizes understanding and is agreeable to treatment plan [employer] Other 03-28-2023 Evaluation note* Encounter Date Diagnosis Assessment Notes Treatment Notes Treatment Clinical Notes Aug, Mass of right wrist (ICD-10 - R22.31) Recent imaging reviewed with patient and family member today. Extensive discussion was had about the current condition and treatment options available. We discussed surgical treatment options as well. We discussed we will obtain an MRI which will help with surgical treatment plans. Activity as tolerated. Call with any questions or concerns. Aug, Dupuytrens contracture (ICD-10 - M72.0) [employer] Other 02-18-2021 NotePatient Outreach (COVAMN) PEÑA RUTH ([id number]) 1945 F Date Time Provider Department 08/10/20 LEELA AYERS During your visit today, we recorded the following information about you: Allergies As of Date: 08/10/2020 (Not on File) Date Reviewed: Never Reviewed Order(s):SARS-COVID VACCINE 1ST DOSE APPT [[id number]] Order #: [id number] FUTURE Prescriptions as of 08/10/2020 Sig: ENBREL 50 MG/ML (1 ML) SUBCUT* Inject 1 mL subcutaneously on* FOLIC ACID 1 MG TABLET Take 1 mg by mouth. PANTOPRAZOLE 20 MG TABLET,DEL* AMLODIPINE 5 MG-VALSARTAN 320* Take 1 tablet by mouth every * HYDROXYCHLOROQUINE 200 MG TAB* POTASSIUM CHLORIDE ER 10 MEQ * Take 10 mEq by mouth. MELOXICAM 7.5 MG TABLET BUSPIRONE 5 MG TABLET Take 5 mg by mouth. SIMVASTATIN 40 MG TABLET Problem List As Of Date: 08/10/2020 (None) Encounter Status:Closed by EPIC, PRODUSER on 08/14/20[facility] Evaluation noteNo assessment information availableUniversity [facility] Work Phone: Evaluation note* Diagnosis Anemia due to folic acid deficiency, unspecified deficiency type documented in this encounter [facility] HealthcareEvaluation [facility]* Diagnosis Onset Date Resolution Status Arthritis of left wrist acut e Dupuytrens contracture acute Mass of right wrist acute Other specified postprocedural states acute Pain in left hand acute Synovitis and tenosynovitis, unspecified acute Trigger finger, left index finger acute Trigger thumb, right thumb a cute [facility] Work Phone: Evaluation note* Diagnosis Onset Date Resolution Status Arthritis of left wrist acut e Dupuytrens contracture acute Mass of right wrist acute Other specified postprocedural states acute Pain in left hand acute Synovitis and tenosynovitis, unspecified acute Trigger finger, left index finger acute Trigger thumb, right thumb a cute Arthritis of left wrist acut e Dupuytrens contracture acute Other specified postprocedural states acute Trigger finger, left index finger acute Trigger finger, left little finger acute [facility] Work Phone: Evaluation note* Diagnosis Onset Date Resolution Status Arthritis of left wrist acut e Dupuytrens contracture acute Mass of right wrist acute Other specified postprocedural states acute Pain in left hand acute Synovitis and tenosynovitis, unspecified acute Trigger finger, left index finger acute Trigger thumb, right thumb a cute Arthritis of left wrist acut e Dupuytrens contracture acute Other specified postprocedural states acute Trigger finger, left index finger acute Trigger finger, left little finger acute Arthritis of left wrist acut e Dupuytrens contracture acute Other specified postprocedural states acute Trigger finger, left index finger acute Trigger finger, left little finger acute Trigger finger, right ring finger acute [facility] Work Phone: Evaluation note* Diagnosis Sensorineural hearing loss, bilateral- Primary documented in this encounter [facility] HealthcareEvaluation note* Diagnosis Onset Date Resolution Status Admit Date Arthritis of left wrist acute N ovember 2023 10:30am Dupuytrens contracture acute No vember 2023 10:30am Nontraumatic subluxation of extensor tendon at metacarpophalangeal joint of acute Nov ember 2023 10:30am Other specified postprocedur al states acute April 30 10:30am Trigger finger, left index finger ac [place] April 30, 2024 10:30am Trigger finger, left little finger a cute April 30, 2024 10:30am Trigger finger, right ring finger ac [place] April 30, 2024 10:30am [facility] Work Phone: Evaluation note* Diagnosis Sensorineural hearing loss (SNHL) of both ears- Primary Tinnitus, bilateral Unspecified tinnitus Impaired auditory discrimination, right documented in this encounter [facility] HealthcareEvaluation note* Diagnosis Bilateral impacted cerumen- Primary Impacted cerumen Sensorineural hearing loss (SNHL), bilateral documented in this encounter [facility] HealthcareEvaluation note* Diagnosis Atherosclerosis of [place] coronary artery of [place] heart without angina pectoris (CMS/HCC)- Primary Rheumatoid arthritis involving multiple sites with positive rheumatoid factor (CMS/HCC) Arthritis of wrist, left Benign essential hypertension (CMS/HCC) Essential hypertension, benign documented in this encounter [facility] HealthcareHistory general Narrative - Reported* Type Description Date Medical History Hypertension Medical History Arthritis Medical History Osteopetrosis Medical History Acid reflux Surgical History shoulder surgery Surgical History appendectomy [employer] Other History general Narrative - Reported* Type Description Date Medical History Hypertension Medical History Arthritis Medical History Osteopetrosis Medical History Acid reflux Surgical History shoulder surgery Surgical History appendectomy Surgical History right thumb trigger A-1 juan alberto release, right thumb excision of soft tissue mass/ganglion cyst of tendon sheath, right small finger metacarpophalangeal joint excision of soft tissue mass 12/16/22 [employer] Other Summary Purpose Family History Relationship Condition Age at Onset Recorded Date/T jerry father Unknown Bacon workers' pneumoconiosis Unknown Not Specified Unknown Malignant neoplasm Unknown Relationship Condition Age at Onset Recorded Date/T jerry father Unknown Bacon workers' pneumoconiosis Unknown mother Unknown Malignant neoplasm Unknown Relationship Condition Age at Onset Recorded Date/T jerry father Bacon workers' pneumoconiosis Unknown Unknown Jaundice Unknown mother Unknown Malignant neoplasm of brain Unknown Diabetes mellitus Unknown brother Diabetes mellitus Unknown Cerebrovascular accident (CVA) Unknown Myocardial infarction Unknown sister Diabetes mellitus Unknown sister Malignant neoplasm of colon Unknown Advance Directives Advance Directive Response Recorded Date/ Time Advance Directives No September 17 8:02am Advance Directive Response Recorded Date/ Time Advance Directives No September 17 7:02am Chief Complaint and Reason for Visit Chief Complaint R22.31 R22.32 R22.31 R22.32 R22.31 Chief Complaint R22.31 R22.32 R22.31 Pre-Surgical Testing Chief Complaint R22.32 R22.31 Pre-Surgical Testing Chief Complaint M79.642 Chief Complaint M79.642 left index trigger finger 2 WK POST OP Reason for Visit Arthritis of left wr ist Dupuytrens contracture Mass of right wrist Other specified postprocedural states Pain in left hand Synovitis and tenosynovitis, unspecified Trigger finger, left index finger Trigger thumb, right thumb Chief Complaint M79.642 left index trigger finger 2 WK POST OP 3 weeks Reason for Visit Arthritis of left wr ist Dupuytrens contracture Mass of right wrist Other specified postprocedural states Pain in left hand Synovitis and tenosynovitis, unspecified Trigger finger, left index finger Trigger thumb, right thumb Arthritis of left wrist Dupuytrens contracture Other specified postprocedural states Trigger finger, left index finger Trigger finger, left little finger Chief Complaint M79.642 left index trigger finger 2 WK POST OP 3 weeks 5 WEEKS Reason for Visit Arthritis of left wr ist Dupuytrens contracture Mass of right wrist Other specified postprocedural states Pain in left hand Synovitis and tenosynovitis, unspecified Trigger finger, left index finger Trigger thumb, right thumb Arthritis of left wrist Dupuytrens contracture Other specified postprocedural states Trigger finger, left index finger Trigger finger, left little finger Arthritis of left wrist Dupuytrens contracture Other specified postprocedural states Trigger finger, left index finger Trigger finger, left little finger Trigger finger, right ring finger Chief Complaint Admit Date OP SP RT HAND PAIN DISCUSS April 30, 2024 10:30am Reason for Visit Admit Date Arthritis of left wrist April 30 10:30am Dupuytrens contracture April 30 10:30am Nontraumatic subluxation of extensor tendon at metacarpophalangeal joint of April 30, 2024 10:30am Other specified postprocedural states No vember 2023 10:30am Trigger finger, left index finger Novemb er 2023 10:30am Trigger finger, left little finger Novem florinda 2023 10:30am Trigger finger, right ring finger Novemb er 2023 10:30am Chief Complaint Admit Date OP SP RT HAND PAIN DISCUSS April 30, 2024 10:30am Hand pain, trigger finger May 05, 2024 9:25am Chief Complaint Admit Date OP SP RT HAND PAIN DISCUSS April 30, 2024 10:30am Hand pain, trigger finger May 05, 2024 9:25am Hand pain, trigger finger May 17, 2024 7:41am Hand pain, trigger finger May 17, 2024 4:26pm 1-2 wk post op June 01, 2024 10:32am 2 weeks June 15, 2024 8:28am 4 WEEKS July 13, 2024 9 :10am Reason for Visit Admit Date Arthritis of left wrist April 30 10:30am Dupuytrens contracture April 30 10:30am Nontraumatic subluxation of extensor tendon at metacarpophalangeal joint of April 30, 2024 10:30am Other specified postprocedural states No vember 2023 10:30am Trigger finger, left index finger Novemb er 2023 10:30am Trigger finger, left little finger Novem florinda 2023 10:30am Trigger finger, right ring finger Novemb er 2023 10:30am Arthritis of left wrist June 01, 2 10:32am Dupuytrens contracture June 01 10:32am Nontraumatic subluxation of extensor tendon at metacarpophalangeal joint of June 01, 2024 10:32am Other specified postprocedural states De cember 2023 10:32am Trigger finger, left index finger Decemb er 2023 10:32am Trigger finger, left little finger Decem florinda 2023 10:32am Trigger finger, right ring finger Decemb er 2023 10:32am Arthritis of left wrist June 15, 2 024 8:28am Dupuytrens contracture June 15 8:28am Nontraumatic subluxation of extensor tendon at metacarpophalangeal joint of June 15, 2024 8:28am Other specified postprocedural states De cember 2023 8:28am Trigger finger, left index finger Decemb er 2023 8:28am Trigger finger, left little finger Decem florinda 2023 8:28am Trigger finger, right ring finger Decemb er 2023 8:28am Arthritis of left wrist July 13 9:10am Dupuytrens contracture July 13 9:10am Nontraumatic subluxation of extensor tendon at metacarpophalangeal joint of July 13, 2024 9:10am Other specified postprocedural states Ja nuary 2024 9:10am Trigger finger, left index finger Januar y 2024 9:10am Trigger finger, left little finger Janua ry 2024 9:10am Trigger finger, right ring finger Januar y 2024 9:10am Additional Source Comments INFORMATION SOURCE (unrecogn ized section and content) DATE CREATED AUTHOR 06/06/2021 [facility]ical Specialist DATE CREATED AUTHOR AUTHOR'S ORGANIZ ATION [facility]/16/20[facility] DATE CREATED AUTHOR AUTHOR'S ORGANIZ ATION 07/29/2022 [facility] p[facility] DATE CREATED AUTHOR AUTHOR'S ORGANIZ ATION 06/04/2024 [facility] ys[facility] Group DATE CREATED AUTHOR AUTHOR'S ORGANIZ ATION 06/18/2024 [facility] dical Specialists EPIC REASON FOR VISIT (unrecogniz ed section and content) Reason Onset Date Comments Med Refill 07/24/2023 folic acid (Folv ite) 1 MG tablet TO DESIRE IN GARETH Reason Comments Hearing Loss Audio 02/16/24 Specialty Diagnoses / Procedures Referred By Javid t Referred To Contact Otolaryngology Diagnoses Bilateral hearing loss, unspecified hearing loss type Procedures OR OFFICE/OUTPATIENT NEW HIGH MDM 60 MINUTES Carlos Alberto Sanchez MD [address] [facility] [address] [place] [address] Ellen Sorto MD [address] [facility] [address] [place] [address] Referral ID Status Reason Start Date Expiration Date V isits Requested Visits Authorized [id number] Closed Specialty Services Required 12/17/2023 06/14/2024 1 1 Reason Comments Hypertension Care Teams (unrecognized sec tion and content) Team Status: Active Member Role Status Dates Carlos Alberto Sanchez II MD Primary Care Provider Active Team Status: Inactive Member Role Status Dates Carlos Alberto Sanchez II MD Primary Care Provider Active Guadalupe Holbrook MD Attending Provider Active Team Status: Inactive Member Role Status Dates Carlos Alberto Sanchez II MD Primary Care Provider Active Start: July 23, 2023 End: July 23, 2023 Guadalupe Holbrook MD Attending Provider Active Start: July 23, 2023 End: July 23, 2023 Simulation Specialist Relationship Specialty Start Date End Date Carlos Alberto Sanchez MD [address] [facility] [address] [place] [address] PCP - Nicholas CRYSTAL 06/23/21 Carlos Alberto Sanchez MD [address] [facility] [address] [place] [address] PCP - General Internal Medicine 12/09/22 Team Status: Inactive Member Role Status Dates Carlos Alberto Sanchez II MD Primary Care Provider Active Start: August 04, 2023 End: August 04, 2023 Guadalupe Holbrook MD Attending Provider Active Start: August 04, 2023 End: August 04, 2023 Team Status: Inactive Member Role Status Dates Carlos Alberto Sanchez II MD Primary Care Provider Active Start: August 15, 2023 End: August 15, 2023 Guadalupe Holbrook MD Attending Provider Active Start: August 15, 2023 End: August 15, 2023 Team Status: Inactive Member Role Status Dates Carlos Alberto Sanchez II MD Primary Care Provider Active Start: September 09, 2023 End: September 09, 2023 Guadalupe Holbrook MD Attending Provider Active Start: September 09, 2023 End: September 09, 2023 Team Status: Inactive Member Role Status Dates Carlos Alberto Sanchez II MD Primary Care Provider Active Start: October 14, 2023 End: October 14, 2023 Guadalupe Holbrook MD Attending Provider Active Start: October 14, 2023 End: October 14, 2023 Simulation Specialist Relationship Specialty Start Date End Date Carlos Alberto Sanchez MD [address] [facility] [address] [place] [address] PCP - Nicholas CRYSTAL 06/23/21 Carlos Alberto Sanchez MD [address] [facility] [address] [place] [address] PCP - General Internal Medicine 12/09/22 Simulation Specialist Relationship Specialty Start Date End Date Carlos Alberto Sanchez MD [address] [facility] [address] [place] [address] PCP - Nicholas CRYSTAL 06/23/21 Carlos Alberto Sanchez MD [address] [facility] [address] [place] [address] PCP - General Internal Medicine 12/09/22 Simulation Specialist Relationship Specialty Start Date End Date Carlos Alberto Sanchez MD [address] [facility] [address] [place] [address] PCP - Nicholas CRYSTAL 06/23/21 Carlos Alberto Sanchez MD [address] [facility] [address] [place] [address] PCP - General Internal Medicine 12/09/22 Team Status: Inactive Member Role Status Dates Carlos Alberto Sanchez II MD Primary Care Provider Active Start: April 30, 2024 End: April 30, 2024 Guadalupe Holbrook MD Attending Provider Active Start: April 30, 2024 End: April 30, 2024 Team Status: Inactive Member Role Status Dates Carlos Alberto Sanchez II MD Primary Care Provider Active Start: May 05, 2024 End: May 05, 2024 Guadalupe Holbrook MD Attending Provider Active Start: May 05, 2024 End: May 05, 2024 Simulation Specialist Relationship Specialty Start Date End Date Carlos Alberto Sanchez MD [address] [facility] [address] [place] [address] PCP - Nicholas CRYSTAL 06/23/21 Carlos Alberto Sanchez MD [address] [facility] [address] [place] [address] PCP - General Internal Medicine 12/09/22 Simulation Specialist Relationship Specialty Start Date End Date Carlos Alberto Sanchez MD [address] [facility] [address] [place] [address] PCP - Nicholas CRYSTAL 06/23/21 Carlos Alberto Sanchez MD [address] [facility] [address] [place] [address] PCP - General Internal Medicine 12/09/22 Team Status: Inactive Member Role Status Dates Carlos Alberto Sanchez II MD Primary Care Provider Active Start: May 17, 2024 End: May 17, 2024 Guadalupe Holbrook MD Attending Provider Active Start: May 17, 2024 End: May 17, 2024 Team Status: Active Member Role Status Dates Carlos Alberto Sanchez II MD Primary Care Provider Active Start: May 17, 2024 Guadalupe Holbrook MD Attending Provider , Other Provider Active Start: May 17, 2024 Team Status: Inactive Member Role Status Dates Carlos Alberto Sanchez II MD Primary Care Provider Active Start: June 01, 2024 End: June 01, 2024 Guadalupe Holbrook MD Attending Provider Active Start: June 01, 2024 End: June 01, 2024 Team Status: Inactive Member Role Status Dates Carlos Alberto Sanchez II MD Primary Care Provider Active Start: June 15, 2024 End: June 15, 2024 Guadalupe Holbrook MD Attending Provider Active Start: June 15, 2024 End: June 15, 2024 Team Status: Inactive Member Role Status Dates Carlos Alberto Sanchez II MD Primary Care Provider Active Start: July 13, 2024 End: July 13, 2024 Guadalupe Holbrook MD Attending Provider Active Start: July 13, 2024 End: July 13, 2024 Goals (unrecognized section and content) Goals may be documented in a n alternate section FOR RECORDS PERTAINING TO PATIENTS WHO ARE OR HAVE BEEN ENROLLED IN A CHEMICAL DEPENDENCY/SUBSTANCEABUSE PROGRAM, SOME INFORMATION MAY BE OMITTED. This clinical summary was aggregated from multiple sources. Caution should be exercised in using it in the provision of clinical care. This summary normalizes information from multiple sources, and as a consequence, information in this document may materially change the coding, format and clinical context of patient data. In addition, data may be omitted in some cases. CLINICAL DECISIONS SHOULD BE BASED ON THE PRIMARY CLINICAL RECORDS. [employer] provides no warranty or guarantee of the accuracy or completeness of information in this document.
== END 2024-10-06 11:26 | disposition home or self-care (01) ==
LOC: LAB 11:36 → RAD 11:38
PROVIDERS: PCP Internal Medicine; Visit Provider Internal Medicine
DX: M54.32 Sciatica, left side (principal); M05.79 Rheumatoid arthritis with rheumatoid factor of multiple sites without organ or systems involvement; M51.369 Other intervertebral disc degeneration, lumbar region without mention of lumbar back pain or lower extremity pain; M85.80 Other specified disorders of bone density and structure, unspecified site
CPT/HCPCS: 72100

== ENCOUNTER 2024-11-01 13:39 | Outpatient (OUT) | payer MEDICARE, SELFPAY ==
--- OUTSIDE RECORDS SUMMARY | 2024-11-01 13:59 | XMS_ITS | CCD ---
Author Organization [facility] Care Team Providers Care Hairspring Vibrator Name Role Phone DR CARLOS ALBERTO SANCHEZ [...] Attending Provider JUANY Sanchez Primary Care Provider [phone] MD Guadalupe Holbrook Attending Provider Carlos Alberto Sanchez MD Unavailable [phone] Carlos Alberto Sanchez MD Primary Care Provider JUANY Sanchez Primary Care Provider MD Guadalupe Holbrook Attending Provider Carlos Alberto Sanchez II Primary Care Provider Guadalupe Holbrook MD Attending Provider Guadalupe Holbrook [...] (13 sources) Azithromycin Drug Allergy 12-19-2022 Unknown [facility] (13 sources) leflunomide Drug Allergy 12-19-2022 Unknown [facility] Medications Current Medications Medication Drug Class(es) Dates Sig (Normalized) Sig (Original) acetaminophen 325 mg / HYDROcodone bitartrate 5 mg oral tablet (16 sources) Opioid Agonist Start: 05-17-2024 HYDROcodone-acetam inophen (Lookout) 5-325 MG tablet 05/17/2024 Active Start: 05-17-2024 End: 06-01-2024 take 1 tablet by mouth every four to six hours as needed for pain Hydrocodone-Acetaminophen 5-325 mg table t Discontinued 1 - 2 TAB PO EVERY 4-6 HOURS as needed for pain 20 10May 17, 2024 June 01, 2024 10:40am Start: 08-15-2023 End: 05-05-2024 take 1 tablet by mouth every four to six hours as needed for pain Hydrocodone-Acetaminophen 5-325 mg table t Discontinued 1 TAB PO EVERY 4-6 HOURS as needed for pain 19 01August 15, 2023 May 05, 2024 10:07am dispense #30 (thirty) dx: Z98.890 postop status [id number] actuat albuterol 0.09 mg/actuat metered dose inhaler (1 source) beta2-Adrenergic Agonist Start: 10-13-2022 take 2 puff(s) by inhalation every four to six hours Albuterol Sulfate HFA 108 (90 Base) MCG/ACT 2 puffs Inhalation every 4-6 hours for 14 days Sep, Active amLODIPine 5 mg / valsartan 320 mg oral tablet (20 sources) Dihydropyridine Calcium Channel Marky, Angiotensin 2 [...] mg / clavulanate 125 mg oral tablet (6 sources) Penicillin-class Antibacterial Start: 2024 End: 2024 take 1 tablet by mouth in the morning amoxicillin-clavulanate (Augmentin) 875-125 MG tablet Indications: Acute non-recurrent sinusitis, unspecified location Take 1 tablet (875 mg) by mouth in the morning and 1 tablet (875 mg) before bedtime. Do all this for 10 days. 20 tablet 10/06/2024 10/21/2024 Discontinued (Therapy completed) Start: 01-25-2017 take 1 tablet by jimmy th every twelve hours Amoxicillin-Pot Clavulanate 875-125 MG 1 tablet Orally every 12 hrs for 10 day(s) Jan, Active azithromycin 250 mg oral tablet (1 source) Macrolide Antimicrobial Start: 10-13-2022 Azithromycin 250 MG 2 tablet on the first day, then 1 tablet daily for 4 days Orally Once a day for 5 day(s) Sep, Active benzonatate 100 mg oral capsule (7 sources) Non-narcotic Antitussive Start: 10-06-2024 End: 10-21-2024 take 1 capsule by mouth three times daily as needed for cough benzonatate (Tessalon Perles) 100 MG capsule Indications: Acute non-recurrent sinusitis, unspecified location Take 1 capsule (100 mg) by mouth 3 (three) times a day as needed for cough for up to 10 days Do not crush or chew. 30 capsule 10/06/2024 10/21/2024 Discontinued (Therapy completed) Start: 10-13-2022 take 1 capsule by mo [facility] every eight hours Tessalon Perles 100 MG 1 capsule as needed Orally Three times a day for 7 days Sep, Active Start: 01-25-2017 take 1 capsule by mo [facility] every eight hours Tessalon Perles 100 MG 1 capsule as needed Orally Three times a day Jan, Active Iselin (5 sources) Iselin - as direc joshua Active busPIRone (1 [...] (1 source) Tetracycline-clas s Drug Start: 03-27-20 23 End: 09-23-19 24 take 1 capsule by mouth in the morning minocycline 100 MG capsule Indications: Rosacea Take 1 capsule (100 mg) by mouth in the morning. 90 capsule 1 03/27/2023 09/23/2023 Active pantoprazole 40 mg delayed release oral tablet (20 sources) Proton Pump Inhibitor Start: 03-26-20 24 End: 11-02-19 26 take 1 tablet by mouth once daily [...] 3 02/07/2023 Active Simvastatin Acti ve Vit C,U-Jv-Oeyam-Lutein-Zeax an (Preservision Areds-2) 250-90-40-1 mg capsule (2 sources) Start: 05-05-2024 Vit C,W-Io-Yyial-Lutein-Zeaxan (Preservision Areds-2) 250-90-40-1 mg capsule Active 1 [...] 20 MG PO August 14, 2023 12:00am November 13th, 2024 10:06am Medication Name: Omeprazole; Note: Source Status: Taking; Provider: Yusef Butcher ( ) Omeprazole Activ e Problems Active Problems Problem Classification Problem Date Documented Da te Episodic/Chronic Anxiety disorders (20 sources) Generalized anxiety disorder; Translations: [Generalized anxiety disorder] Onset: 12-19-2022 12-19-2022 Chronic Chronic obstructive pulmonary disease and bronchiectasis (1 source) Bronchitis, not specified as acute or chronic Episodic Coronary atherosclerosis and other heart disease (20 sources) Coronary atherosclerosis; Translations: [Atherosclerotic heart disease of creek coronary artery without angina pectoris] Onset: 12-19-2022 12-19-2022 Chronic Deficiency and other anemia (1 source) Nutritional anemia; Translations: [Folate deficiency anemia, unspecified] 07-24-2023 Episodic Disorders of lipid metabolism (20 sources) Pure hypercholesterolemia , unspecified; Translations: [Mixed hyperlipidemia] Onset: 07-29-2022 12-19-2022 Chronic Diverticulosis and diverticulitis (20 sources) Diverticular disease; Translations: [Diverticulosis of intestine, [...] ovarian failure] Onset: 02-28-2022 Chronic Nutritional deficiencies (20 sources) Vitamin D deficiency; Translations: [Vitamin D deficiency, unspecified] Onset: 12-19-2022 12-19-2022 Chronic Osteoarthritis (20 sources) Arthritis of left wrist; Translations: [Primary osteoarthritis, left wrist] Onset: 12-19-2022 Chronic Other aftercare (1 source) Other long winder tender (current) drug therapy; Translations: [OTH DETENTION CURRENT DRUG THERAPY] Onset: 07-29-2022 Episodic Other bone disease and musculoskeletal deformities (4 sources) Osteopenia; Translations: [Other specified disorders of bone density and structure, other site] Onset: 10-21-2024 10-21-2024 Episodic Other congenital anomalies (6 sources) Osteopetrosis; [...] 12-19-2022 Chronic Other inflammatory condition of skin (20 sources) Rosacea; Translations: [Rosacea, unspecified] Onset: 12-19-2022 12-19-2022 Chronic Other nervous system disorders (20 sources) Carpal tunnel syndrome of right wrist; Translations: [Carpal tunnel syndrome, right upper limb] Onset: 12-19-2022 12-19-2022 Chronic Other nervous system disorders (20 sources) Entrapment of left ulnar nerve; Translations: [Lesion of ulnar nerve, left upper limb] Onset: 12-19-2022 12-19-2022 Chronic Other nervous system disorders (20 sources) Chronic pain; Translations: [Other chronic pain] Onset: 12-19-2022 12-19-2022 Chronic Other skin disorders (8 sources) Localized swelling, mass and lump, right upper limb; Translations: [Other symptoms referable to joint, forearm] Episodic Other skin disorders (6 sources) Mass of wrist; Translations: [Localized swelling, mass and lump, right upper limb] 08-14-2023 Episodic Other upper respiratory disease (20 sources) Allergic rhinitis; Translations: [Allergic rhinitis, unspecified] Onset: 12-19-2022 12-19-2022 Chronic Other upper respiratory infections (4 sources) Acute sinusitis; Translations: [Acute sinusitis, unspecified] 10-06-2024 Episodic Residual codes; unclassified (1 source) Acquired absence [...] of multiple joints] Onset: 07-29-2022 12-19-2022 Chronic Spondylosis; intervertebral disc disorders; other back problems (20 sources) Lumbar radiculopathy; Translations: [Radiculopathy, lumbar region] Onset: 12-19-2022 12-19-2022 Episodic Unclassified (1 source) Pain in left hand; Translations: [Pain in left hand] Onset: 08-04-2023 Viral infection (4 sources) COVID-19; Translations: [COVID-19] Onset: 07-28-2022 Past or Other Problems Problem Classification Problem Date Documented Da te Episodic/Chronic Diabetes mellitus without complication (20 sources) Impaired fasting glycemia; Translations: [Impaired fasting glucose] Onset: 12-19-2022 12-19-2022 Episodic Other bone disease and musculoskeletal deformities (1 source) Other specified disorders of bone density and structure, unspecified site; Translations: [OTH D/O BONE DEN STRUCT UNS SITE] Onset: 03-03-2022 Episodic Other bone disease and musculoskeletal deformities (20 sources) Arrest of bone development AND/OR growth; Translations: [Other disorders of bone development and growth, unspecified site] Onset: 12-19-2022 12-19-2022 Episodic Other connective tissue disease (20 sources) Muscle pain; Translations: [Myalgia, unspecified site] Onset: 12-19-2022 12-19-2022 Episodic Other connective tissue disease (20 sources) Fibromyalgia; Translations: [Fibromyalgia] Onset: 12-19-2022 12-19-2022 Episodic Other ear and sense organ disorders (20 sources) Tinnitus; Translations: [Tinnitus, unspecified ear] Onset: [...] bilateral] 02-18-2024 Episodic Other lower respiratory disease (20 sources) Disorder of lung; Translations: [Other disorders of lung] Onset: 12-19-2022 Resolved: 12-23-2022 12-23-2022 Episodic Other screening for suspected conditions (not mental disorders or infectious disease) (20 sources) Liver function tests abnormal; Translations: [Abnormal results of liver function studies] Onset: 12-19-2022 12-19-2022 Episodic Results Test Name Value Interpretation Reference Range Facility CBC (H/H, RBC, INDICES, WBC, PLT)on 10-07-2024 Erythrocyte distribution width (RBC) [Ratio] 13.4 % Normal 11.0-15.0 [facility] Comment on above: Performed By: #### 1 759, 66790, 73843, 13534, 7600 #### [facility] [place] [address] Commercial Roofer: Lorenzo Sanders MD Hematocrit (Bld) [Volume fraction] 42.0 % Normal 35.0-45.0 [facility] Comment on above: Performed By: #### 1 759, 63043, 77851, 23580, 7600 #### [facility] [place] [address] Commercial Roofer: Lorenzo Sanders MD Hemoglobin (Bld) [Mass/Vol] 13.7 g/dL Normal 11.7-15.5 [facility] Comment on above: Performed By: #### 1 759, 02726, 81881, 84484, 7600 #### [facility] [place] [address] Commercial Roofer: Lorenzo Sanders MD MCH (RBC) [Entitic mass] 28.4 pg Normal 27.0-33.0 [facility] Comment on above: Performed By: #### 1 759, 28998, 98865, 57670, 7600 #### [facility] [place] [address] Commercial Roofer: Lorenzo Sanders MD MCHC (RBC) [Mass/Vol] 32.6 g/dL Normal 32.0-36.0 [facility] Comment on above: Result Comment: For adults, a slight decrease in the calculated MCHC value (in the range of 30 to 32 g/dL) is most likely not clinically significant; however, it should be interpreted with caution in correlation with other red cell parameters and the patient's clinical condition. Performed By: #### 1 759, 25588, 46060, 37886, 7600 #### [facility] of [address], [address] [place] [address] Commercial Roofer: Lorenzo Sanders MD MCV (RBC) [Entitic vol] 87.1 fL Normal 80.0-100.0 [facility] Comment on above: Performed By: #### 1 759, 57976, 66427, 86346, 7600 #### [facility] of [place] [address] Commercial Roofer: Lorenzo Sanders MD Platelet mean volume (Bld) [Entitic vol] 10.0 fL Normal 7.5-12.5 [facility] Comment on above: Performed By: #### 1 759, 37314, 48622, 15241, 7600 #### [facility] of [place] [address] Commercial Roofer: Lorenzo Sanders MD Platelets (Bld) [#/Vol] 218 10*3/uL Normal 140-400 [facility] Comment on above: Performed By: #### 1 759, 48144, 70154, 04125, 7600 #### [facility] of [place] [address] Commercial Roofer: Lorenzo Sanders MD RBC (Bld) [#/Vol] 4.82 10*6/uL Normal 3.80-5.10 [facility] Comment on above: Performed By: #### 1 759, 58523, 46007, 35030, 7600 #### [facility] of [place] [address] Commercial Roofer: Lorenzo Sanders MD WBC (Bld) [#/Vol] 6.7 10*3/uL Normal 3.8-10.8 [facility] Comment on above: Performed By: #### 1 759, 46205, 77641, 41617, 7600 #### [facility] of [place] [address] Commercial Roofer: Lorenzo Sanders MD [facility] 10-07-2024 Albumin [Mass/Vol] 4.4 g/dL Normal 3.6-5.1 [facility] Comment on above: Performed By: #### 1 759, 45808, 30617, 75490, 7600 #### [facility] of [address], [address] [place] [address] Commercial Roofer: Lorenzo Sanders MD Albumin/Globulin [Mass ratio] 1.3 {ratio} Normal 1.0-2.5 [facility] Comment on above: Performed By: #### 1 759, 51883, 39682, 75719, 7600 #### [facility] of [place] [address] Commercial Roofer: Lorenzo Sanders MD ALP [Catalytic activity/Vol] 73 U/L Normal 37-153 [facility] Comment on above: Performed By: #### 1 759, 70764, 09452, 24974, 7600 #### [facility] of [place] [address] Commercial Roofer: Lorenzo Sanders MD ALT [Catalytic activity/Vol] 10 U/L Normal 6-29 [facility] Comment on above: Performed By: #### 1 759, 52996, 45407, 25405, 7600 #### [facility] of [place] [address] Commercial Roofer: Lorenzo Sanders MD AST [Catalytic activity/Vol] 22 U/L Normal 10-35 [facility] Comment on above: Performed By: #### 1 759, 12344, 17645, 09387, 7600 #### [facility] of [place] [address] Commercial Roofer: Lorenzo Sanders MD Bilirubin [Mass/Vol] 1.0 mg/dL Normal 0.2-1.2 [facility] Comment on above: Performed By: #### 1 759, 16998, 63571, 16036, 7600 #### [facility] of [address], [address] [place] [address] Commercial Roofer: Lorenzo Sanders MD BUN/CREATININE RATIO SEE NOTE: Normal 6-22 [facility] Comment on above: Result Comment: Not Reported: BUN and Creatinine are within reference range. Performed By: #### 1 759, 87493, 14861, 87465, 7600 #### [facility] [address], [address] [place] [address] Commercial Roofer: Lorenzo Sanders MD Calcium [Mass/Vol] 9.5 mg/dL Normal 8.6-10.4 [facility] Comment on above: Performed By: #### 1 759, 43713, 93203, 62642, 7600 #### [facility] [address], [address] [place] [address] Commercial Roofer: Lorenzo Sanders MD Chloride [Moles/Vol] 104 mmol/L Normal 98-110 [facility] Comment on above: Performed By: #### 1 759, 70355, 10554, 78447, 7600 #### [facility] [address], [address] [place] [address] Commercial Roofer: Lorenzo Sanders MD CO2 [Moles/Vol] 27 mmol/L Normal 20-32 [facility] Comment on above: Performed By: #### 1 759, 68622, 37859, 27813, 7600 #### [facility] of [address], [address] [place] [address] Commercial Roofer: Lorenzo Sanders MD Creatinine [Mass/Vol] 0.77 mg/dL Normal 0.60-0.[address] [facility] Comment on above: Performed By: #### 1 759, 40225, 27819, 68206, 7600 #### [facility] of [address], [address] [place] [address] Commercial Roofer: Lorenzo Sanders MD GFR/1.73 sq M.predicted among non-blacks MDRD (S/P/Bld) [Vol rate/Area] 78 mL/min/{1.73_m2} Normal > OR = 60 [facility] Comment on above: Performed By: #### 1 759, 75814, 65173, 73404, 7600 #### [facility] [address], [address] [place] [address] Commercial Roofer: Lorenzo Sanders MD Globulin (S) [Mass/Vol] 3.3 g/dL Normal 1.9-3.7 [facility] Comment on above: Performed By: #### 1 759, 29377, 24459, 66199, 7600 #### [facility] [place] [address] Commercial Roofer: Lorenzo Sanders MD Glucose [Mass/Vol] 85 mg/dL Normal 65-99 [facility] Comment on above: Result Comment: Fasting reference interval Performed By: #### 1 759, 13765, 94621, 79704, 7600 #### [facility] [address], [address] [place] [address] Commercial Roofer: Lorenzo Sanders MD Potassium [Moles/Vol] 4.1 mmol/L Normal 3.5-5.[address] [facility] Comment on above: Performed By: #### 1 759, 99233, 27956, 23990, 7600 #### [facility] [place] [address] Commercial Roofer: Lorenzo Sanders MD Protein [Mass/Vol] 7.7 g/dL Normal 6.1-8.1 [facility] Comment on above: Performed By: #### 1 759, 37974, 34825, 18410, 7600 #### [facility] of [place] [address] Commercial Roofer: Lorenzo Sanders MD Sodium [Moles/Vol] 141 mmol/L Normal 135-146 [facility] Comment on above: Performed By: #### 1 759, 36818, 28840, 64452, 7600 #### [facility] [address], [address] [place] [address] Commercial Roofer: Lorenzo Sanders MD Urea nitrogen [Mass/Vol] 23 mg/dL Normal 7- [facility] Comment on above: Performed By: #### 1 759, 01728, 82197, 36908, 7600 #### [facility] [address], [address] [place] [address] Commercial Roofer: Lorenzo Sanders MD LIPID PANEL, [place] [address]- Cholesterol [Mass/Vol] 145 mg/dL Normal <200 [facility] Comment on above: Order Comment: FASTI NG:YES FASTING: YES Performed By: #### 1 759, 75911, 26015, 56517, 7600 #### [facility] [address], [address] [place] [address] Commercial Roofer: Lorenzo Sanders MD Cholesterol in HDL [Mass/Vol] 74 mg/dL Normal > OR = 50 [facility] Comment on above: Order Comment: FASTI NG:YES FASTING: YES Performed By: #### 1 759, 61503, 34774, 97752, 7600 #### [facility] [address], [address] [place] [address] Commercial Roofer: Lorenzo Sanders MD Cholesterol in LDL [Mass/Vol] 57 mg/dL Normal [facility] Comment on above: Order Comment: FASTI NG:YES FASTING: YES Result Comment: Refe rence range: <100 Desirable range <100 mg/dL for primary prevention; <70 mg/dL for patients with CHD or diabetic patients with > or = 2 CHD risk factors. LDL-C is now calculated using the Reva calculation, which is a validated novel method providing better accuracy than the Friedewald equation in the estimation of LDL-C. Faraz PEDERSEN et al. YOMI. 2013;310(19): 4171-4582 (http://education.[employer]/faq/WLW018) Performed By: #### 1 759, 21410, 20944, 51038, 7600 #### [facility] [place] [address] Commercial Roofer: Lorenzo Sanders MD Cholesterol.total/Gudelia sterol in HDL [Mass ratio] 2.0 {ratio} Normal <5.0 [facility] Comment on above: Order Comment: FASTI NG:YES FASTING: YES Performed By: #### 1 759, 91594, 19420, 55973, 7600 #### [facility] [place] [address] Commercial Roofer: Lorenzo Sanders MD NON HDL CHOLESTEROL 71 mg/dL (calc) Normal <130 [facility] Comment on above: Order Comment: FASTI NG:YES FASTING: YES Result Comment: For patients with diabetes plus 1 major ASCVD risk factor, treating to a non-HDL-C goal of <100 mg/dL (LDL-C of <70 mg/dL) is considered a therapeutic option. Performed By: #### 1 759, 78094, 60996, 36720, 7600 #### [facility] [place] [address] Commercial Roofer: Lorenzo Sanders MD Triglyceride [Mass/Vol] 56 mg/dL Normal <150 [facility] Comment on above: Order Comment: FASTI NG:YES FASTING: YES Performed By: #### 1 759, 05057, 05010, 33747, 7600 #### [facility] [place] [address] Commercial Roofer: Lorenzo Sanders MD TSH W/REFLEX TO FT4on 2024 TSH W/REFLEX TO FT4 4.12 mIU/L Normal 0.40-4.50 [facility] Comment on above: Performed By: #### 1 759, 51930, 01187, 36221, 7600 #### [facility] [place] [address] Commercial Roofer: Lorenzo Sanders MD VITAMIN D,25-OH,TOTAL,IAon 0 10-07-2024 VITAMIN D,25-OH,TOTAL,IA 64 ng/mL Normal 30-100 [facility] Comment on above: Result Comment: Brittney min D Status 25-OH Vitamin D: Deficiency: <20 ng/mL Insufficiency: 20 - 29 ng/mL Optimal: > or = 30 ng/mL For 25-OH Vitamin D testing on patients on D2-supplementation and patients for whom quantitation of D2 and D3 fractions is required, the QuestAssureD(TM) 25-OH VIT D, (D2,D3), LC/MS/MS is recommended: order code 85794 (patients >2yrs). See Note 1 Note 1 For additional information, please refer to http://education.[employer]/faq/LWL658 (This link is being provided for informational/ educational purposes only.) Performed By: #### 1 759, 65160, 36678, 66525, 7600 #### [facility] [address], [address] [place] [id number] Commercial Roofer: Lorenzo Sanders MD XR LUMBAR SPINE 2 OR [address] [address] XRay Report Signed Patient: PEÑA RUTH MR#: [id number] : 1945 Acct:[id number] Age/Sex: 79 / F ADM Date: 10/06/24 Loc: [facility] Attending Dr: CARLOS ALBERTO SANCHEZ Ordering Physician: CARLOS ALBERTO SANCHEZ Date of Service: 10/06/24 Procedure(s): XR lumbar spine 2-3V Accession Number(s): [id number] cc: CARLOS ALBERTO SANCHEZ [place] [address] Patient Name: PEÑA RUTH MRN: [id number] date: 1945 Sex: F Assigned Patient Location: [facility] Current Patient Location: [facility] Accession/Order Number: [id number] Exam Date: 10/06/2024 13:56 Report Date: 10/06/2024 13:59 At the request of: CARLOS ALBERTO SANCHEZ Procedure: XR lumbar spine 2-3V 3 views Lumbar Spine HISTORY: Chronic low back pain for 6 months COMPARISON: None POSTSURGICAL CHANGES: None BONY ALIGNMENT: Straightening. Moderate scoliosis with concavity to the left HYPERMOBILITY:No bending imaging. LISTHESIS:4 mm L4-5 degenerative anterolisthesis. 2 mm L2-3 and L3-4 degenerative retrolisthesis. FRACTURE: None DEGENERATIVE CHANGES: Extensive L5-S1 disc space narrowing. Moderate L2-L5 disc space narrowing. Since the lower lumbar facet degeneration. SOFT TISSUES: Unremarkable BONY MINERALIZATION:Diffuse osteopenia XR/XR lumbar spine 2-3V IMPRESSION: Extensive multilevel degeneration. Scoliosis and diffuse osteopenia. Impression dictated by: Samuel Oropeza M.D.10/06/2024 1:59 PM Dictation Location: [place] [address] Electronically authenticated by: [id number] Y Date: 10/06/2024 13:59 Dictated By: Samuel Oropeza D.O. Signed By: 10/06/24 1401 DD/ 1359 TD/TT: Time Stamp Assembler: [facility] Radiology, Radiologist, MD - 10/06/2024 [place] [address] XRay Report Signed Patient: PEÑA RUTH MR#: [id number] : 1945 Acct:[id number] Age/Sex: 79 / F ADM Date: 10/06/24 Loc: [facility] Attending Dr: CARLOS ALBERTO SANCHEZ Ordering Physician: CARLOS ALBERTO SANCHEZ Date of Service: 10/06/24 Procedure(s): XR lumbar spine 2-3V Accession Number(s): [id number] cc: CARLOS ALBERTO SANCHEZ [place] [address] Patient Name: PEÑA RUTH MRN: [facility]:[id number] date: 1945 Sex: F Assigned Patient Location: [facility] Current Patient Location: [facility] Accession/Order Number: [id number] Exam Date: 10/06/2024 13:56 Report Date: 10/06/2024 13:59 At the request of: CARLOS ALBERTO SANCHEZ Procedure: XR lumbar spine 2-3V 3 views Lumbar Spine HISTORY: Chronic low back pain for 6 months COMPARISON: None POSTSURGICAL CHANGES: None BONY ALIGNMENT: Straightening. Moderate scoliosis with concavity to the left HYPERMOBILITY:No bending imaging. LISTHESIS:4 mm L4-5 degenerative anterolisthesis. 2 mm L2-3 and L3-4 degenerative retrolisthesis. FRACTURE: None DEGENERATIVE CHANGES: Extensive L5-S1 disc space narrowing. Moderate L2-L5 disc space narrowing. Since the lower lumbar facet degeneration. SOFT TISSUES: Unremarkable BONY MINERALIZATION:Diffuse osteopenia XR/XR lumbar spine 2-3V IMPRESSION: Extensive multilevel degeneration. Scoliosis and diffuse osteopenia. Impression dictated by: Samuel Oropeza M.D.10/06/2024 1:59 PM Dictation Location: [place] [address] Electronically authenticated by: [id number] Y Date: 10/06/2024 13:59 Dictated By: Samuel Oropeza D.O. Signed By: 10/06/24 1400 DD/ 1353 TD/TT: Time Stamp Assembler: [facility] Radiology Study observation (narrative) [facility] XR LUMBAR SPINE 2 OR 3VOrder ed By: Radiologist Radiology on 10-06-2024 [facility] [employer] Work Phone: Zachary 05-17-2024 L -- ---- Specimen: [id number] Received: 05/17/24 Status: NIVIA Lisa Num: [id number] Spec Type: Surgical Subm Dr: Guadalupe Holbrook MD Tissues: A Synovium-Biopsy or tissue (SMALL FINGER SYNOVIUM R HAND) Procedures: HE/2, Gross/Micro L4 ---- Age/ Patient Sex Location Account Attending Physician ---- Peña Ruth 79/F [place] [id number] Guadalupe Holbrook MD ---- SPEC NUM: [id number] RECD: 05/17/24 STATUS: NIVIA GONZALEZ NUM: [id number] FIORELLA: 05/17/[address] [facility] [address]: Guadalupe Holbrook MD ENTERED: 05/17/24 [facility] DR: BOOGIE TYPE: Surgical DEPT: S ENTERED BY: [id number] RECV BY: [id number] ORDERED: HE/2, Gross/Micro L4 ORDERED: HE/2, Gross/Micro L4, USS/3 Supplemental Report Addendum 1 Entered: 06/01/24 Supplemental for findings of the [facility] but with interpretation here on site: -Negative Note: -There is no evidence of any abnormal staining of AA protein in any normal and/or degenerated area of the synovial tissue in this biopsy, when compared to the positive brownish staining deposits of the concurrent control slide available for comparison, excluding possibility of amyloidosis synovitis in this examination CPT: 97380 Addendum Signed (signature on file) Bill-Pedro Brewer MD 06/01/24 0852 ---- ---- Specimen: [id number] Received: 05/17/24 Status: NIVIA Chairezse Num: [id number] Spec Type: Surgical Subm Dr: Guadalupe Holbrook MD Tissues: A Synovium-Biopsy or tissue (SMALL FINGER SYNOVIUM R HAND) Procedures: HE/Mati, Gross/Micro L4 ---- Patient: Peña Ruth [id number] (Continued) ---- Specimen: [id number] Received: 05/17/24 (Continued) Signed (signature on file) Angelica Brewer MD 05/19/24 1629 ---- Specimen: [id number] Received: 05/17/24 Status: NIVIA Gonzalez Num: [id number] Spec Type: Surgical Subm Dr: Guadalupe Holbrook MD Tissues: A Synovium-Biopsy or tissue (SMALL FINGER SYNOVIUM R HAND) Procedures: HE/2, Gross/Micro L4 ---- Patient: Peña Ruth [id number] (Continued) ---- Specimen: [id number] Received: 05/17/24 (Continued) Pathological Diagnosis Soft tissue, [...] processing in a single cassette. (1, ns, [id number]) Microscopic Description Microscopic examinations are performed supporting the above interpretation -- (more content not included)... Normal [facility] Alanine aminotransferase [En zymatic activity/volume] in Serum or PlasmaOrdered By: Guadalupe Holbrook on 05-05-2024 ALT [Catalytic activity/Vol] Alanine aminotransferase [Enzymatic activity/volume] in Serum or Plasma 7-52 [facility] Albumin [Mass/volume] in Ser um or Plasma by Bromocresol green (BCG) dye binding methoOrdered By: Guadalupe Holbrook on 05-05-2024 Albumin BCG dye [Mass/Vol] Albumin [Mass/volume] in Serum or Plasma by Bromocresol green (BCG) dye binding metho 3.5-5.7 [facility] Alkaline phosphatase [Enzyma tic activity/volume] in Serum or PlasmaOrdered By: Guadalupe Holbrook on 05-05-2024 ALP [Catalytic activity/Vol] Alkaline phosphatase [Enzymatic activity/volume] in Serum or Plasma 34-104 [facility] Aspartate aminotransferase [ Enzymatic activity/volume] in Serum or PlasmaOrdered By: Guadalupe Holbrook on 05-05-2024 AST [Catalytic activity/Vol] Aspartate aminotransferase [Enzymatic activity/volume] in Serum or Plasma [facility] Basophils Auto (Bld) [#/Vol] Ordered By: Guadalupe Holbrook on 05-05-2024 Basophils (Bld) [#/Vol] Automated basoph il count 0.0-0.2 [facility] Basophils/100 WBC Auto (Bld) Ordered By: Guadalupe Holbrook on 05-05-2024 Basophils/100 WBC (Bld) Automated basophil % . [facility] Bilirubin.total [Mass/volume ] in Serum or PlasmaOrdered By: Guadalupe Holbrook on 05-05-2024 Bilirubin [Mass/Vol] Bilirubin.total [Mass/volume] in Serum or Plasma High 0.3-1.0 [facility] CMP with reflex to A1Con Albumin [Mass/Vol] 4.2 g/dL Normal 3.5-5.7 [facility] Comment on above: Performed By: #### C MP wRFX A1C, CBC #### [facility] [address] Albumin/Globulin [Mass ratio] 1.5 {ratio} Normal [facility] Comment on above: Performed By: #### C MP wRFX A1C, CBC #### [facility] [address] ALP [Catalytic activity/Vol] 73 U/L Normal 34-104 [facility] Comment on above: Result Comment: PERF ORMED BY: [place] [address] PATHOLOGIST DIGITAL MEDIA MANAGER FRANCIE CHAUDHARY M.D. Performed By: #### C MP wRFX A1C, CBC #### [facility] [address] [place] [id number] [place] ALT [Catalytic activity/Vol] 13 U/L Normal 7-52 [facility] Comment on above: Performed By: #### C MP wRFX A1C, CBC #### [facility] [address] [place] [id number] [place] Anion gap [Moles/Vol] 13.4 mmol/L Normal 6.0-15.0 [facility] e [facility] Comment on above: Performed By: #### C MP wRFX A1C, CBC #### [facility] [address] [place] [address] [place] AST [Catalytic activity/Vol] 24 U/L Normal 13-39 [facility] Comment on above: Performed By: #### C MP wRFX A1C, CBC #### [facility] [address] [place] [id number] [place] Bilirubin [Mass/Vol] 1.1 mg/dL High 0.3-1.0 [facility] Comment on above: Performed By: #### C MP wRFX A1C, CBC #### [facility] [address] Calcium [Mass/Vol] 9.6 mg/dL Normal 8.6-10.3 [facility] Comment on above: Performed By: #### C MP wRFX A1C, CBC #### [facility] [address] [place] [address] [place] Chloride [Moles/Vol] 101 mmol/L Normal 98-107 [facility] Comment on above: Performed By: #### C MP wRFX A1C, CBC #### [place] [address] [place] CO2 [Moles/Vol] 29.5 mmol/L Normal 21.0-31.0 [facility] Comment on above: Performed By: #### C MP wRFX A1C, CBC #### [facility] [address] [place] [address] [place] Creatinine [Mass/Vol] 0.78 mg/dL Normal 0.60-1.20 [facility] Comment on above: Performed By: #### C MP wRFX A1C, CBC #### [facility] [address] [place] [id number] [place] GFR/1.73 sq M.predicted MDRD (S/P/Bld) [Vol rate/Area] mL/min/{1.73_m2} Normal [facility] Comment on above: Performed By: #### C MP wRFX A1C, CBC #### [facility] [address] Globulin (S) [Mass/Vol] 2.8 g/dL Normal T he [facility] Comment on above: Performed By: #### C MP wRFX A1C, CBC #### [facility] [address] Glucose [Mass/Vol] 79 mg/dL Normal 70-100 [facility] Comment on above: Performed By: #### C MP wRFX A1C, CBC #### [facility] [address] Potassium [Moles/Vol] 3.9 mmol/L Normal 3.5-5.1 [facility] Comment on above: Performed By: #### C MP wRFX A1C, CBC #### [address] Protein [Mass/Vol] 7.0 g/dL Normal 6.4-8.9 [facility] Comment on above: Performed By: #### C MP wRFX A1C, CBC #### [address] Sodium [Moles/Vol] 140 mmol/L Normal 136-145 [facility] Comment on above: Performed By: #### C MP wRFX A1C, CBC #### [place] [id number] [place] Urea nitrogen [Mass/Vol] 19 mg/dL Normal 7-25 [facility] Comment on above: Performed By: #### C MP wRFX A1C, CBC #### [place] [id number] [place] Calcium [Mass/volume] in Ser um or PlasmaOrdered By: Guadalupe Holbrook on 05-05-2024 Calcium [Mass/Vol] Calcium [Mass/volume ] in Serum or Plasma 8.6-10.3 [facility] Carbon dioxide, total [Moles /volume] in Serum or PlasmaOrdered By: Guadalupe Holbrook on 05-05-2024 CO2 [Moles/Vol] Carbon dioxide, tota l [Moles/volume] in Serum or Plasma 21.0-31.0 [facility] Chloride [Moles/volume] in S ying or PlasmaOrdered By: Guadalupe Holbrook on 05-05-2024 Chloride [Moles/Vol] Chloride [Moles/volume] in Serum or Plasma 98-107 [facility] Complete Blood Count Auto Di ffon 05-05-2024 Basophils (Bld) [#/Vol] 0.1 10*3/uL Normal 0.0-0.2 [facility] Comment on above: Result Comment: PERF ORMED BY: [place] [address] PATHOLOGIST DIGITAL MEDIA MANAGER MELVIN BOLES M.D. Performed By: #### C MP wRFX A1C, CBC #### [facility] [address] Basophils/100 WBC (Bld) 1.0 % Normal . [facility] Comment on above: Performed By: #### C MP wRFX A1C, CBC #### [facility] [address] [place] [address] [place] Eosinophils (Bld) [#/Vol] 0.2 10*3/uL Normal 0.0-0.45 [facility] Comment on above: Performed By: #### C MP wRFX A1C, CBC #### [place] [address] [place] Eosinophils/100 WBC (Bld) 2.7 % Normal . [facility] Comment on above: Performed By: #### C MP wRFX A1C, CBC #### [facility] [address] [place] [address] [place] Erythrocyte distribution width (RBC) [Ratio] 14.0 % Normal 11.9-15.3 [facility] Comment on above: Performed By: #### C MP wRFX A1C, CBC #### [facility] [address] Hematocrit (Bld) [Volume fraction] 40.7 % Normal 34.0-46.4 [facility] Comment on above: Performed By: #### C MP wRFX A1C, CBC #### [address] Hemoglobin (Bld) [Mass/Vol] 13.7 g/dL Normal 11.8-15.4 [facility] Comment on above: Performed By: #### C MP wRFX A1C, CBC #### [address] Lymphocytes (Bld) [#/Vol] 1.6 10*3/uL Normal 1.00-4.8 [facility] Comment on above: Performed By: #### C MP wRFX A1C, CBC #### [address] Lymphocytes/100 WBC (Bld) 22.2 % Normal . [facility] Comment on above: Performed By: #### C MP wRFX A1C, CBC #### [address] MCH (RBC) [Entitic mass] 29.2 pg Normal 24.7-34.3 [facility] Comment on above: Performed By: #### C MP wRFX A1C, CBC #### [address] MCV (RBC) [Entitic vol] 86.4 fL Normal 80-100 [facility] Comment on above: Performed By: #### C MP wRFX A1C, CBC #### [address] Mean Corpuscular HGB Conc 33.8 g/dL Normal 32.0-35.0 [facility] Comment on above: Performed By: #### C MP wRFX A1C, CBC #### [place] [address] [place] Monocytes (Bld) [#/Vol] 0.8 10*3/uL Normal 0.0-0.8 [facility] Comment on above: Performed By: #### C MP wRFX A1C, CBC #### [place] [address] [place] Monocytes/100 WBC (Bld) 11.7 % Normal . [facility] Comment on above: Performed By: #### C MP wRFX A1C, CBC #### [facility] [address] [place] [address] Neutrophils (Bld) [#/Vol] 4.4 10*3/uL Normal 1.8-7.7 [facility] Comment on above: Performed By: #### C MP wRFX A1C, CBC #### [facility] [address] [place] [address] [place] Neutrophils/100 WBC (Bld) 62.4 % Normal . [facility] Comment on above: Performed By: #### C MP wRFX A1C, CBC #### [facility] [address] [place] [address] NRBC% 0.1 /100{WBC} Normal 0-0.5 [facility] Comment on above: Performed By: #### C MP wRFX A1C, CBC #### [place] [address] [place] Platelet mean volume (Bld) [Entitic vol] 7.1 fL Normal 6.3-10.7 [facility] Comment on above: Performed By: #### C MP wRFX A1C, CBC #### [place] [address] [place] Platelets (Bld) [#/Vol] 210 10*3/uL Normal 150-450 [facility] Comment on above: Performed By: #### C MP wRFX A1C, CBC #### [facility] [address] [place] [address] [place] RBC (Bld) [#/Vol] 4.71 10*6/uL Normal 3.60-5.00 [facility] Comment on above: Performed By: #### C MP wRFX A1C, CBC #### [place] [address] [place] WBC (Bld) [#/Vol] 7.1 10*3/uL Normal 3.8-11.6 [facility] Comment on above: Performed By: #### C MP wRFX A1C, CBC #### [address] [place] [address] [facility] Creatinine [Mass/volume] in Serum or PlasmaOrdered By: Guadalupe Holbrook on 05-05-2024 Creatinine [Mass/Vol] Creatinine [Mass/volume] in Serum or Plasma 0.60-1.20 [facility] ECG 12 lead ECGon 05-05-2024 ECG 12 lead ECG [facility] Main [place] [address] [place], [place] [id number] Electrocardiograph Report Signed Patient: Peña Ruth MR#: [id number] : 1945 Acct:[id number] Age/Sex: 79 / F ADM Date: 05/05/24 Loc: Room: Type: [facility] Attending Dr: Guadalupe Holbrook MD Ordering Provider: [...] Signed By Prakash Ceja MD 1 07/05/23 4580 Normal [facility] Eosinophils Auto (Bld) [#/Vo l]Ordered By: Guadalupe Holbrook on 05-05-2024 Eosinophils (Bld) [#/Vol] Automated eosinophil count 0.0-0.45 [facility] Eosinophils/100 WBC Auto (Bl d)Ordered By: Guadalupe Holbrook on 05-05-2024 Eosinophils/100 WBC (Bld) Automated eosinophil % . [facility] Erythrocyte distribution wid th Auto (RBC) [Ratio]Ordered By: Guadalupe Holbrook on 05-05-2024 Erythrocyte distribution width (RBC) [Ratio] Erythrocyte distribution width [Ratio] by Automated count 11.9-15.3 [facility] Globulin Calc (S) [Mass/Vol] Ordered By: Guadalupe Holbrook on 05-05-2024 Globulin (S) [Mass/Vol] Serum globulin measurement by calculation (mass/volume) [facility] Glucose [Mass/volume] in Ser um or PlasmaOrdered By: uGadalupe Holbrook 05-05-2024 Glucose [Mass/Vol] Glucose [Mass/volume ] in Serum or Plasma 70-100 [facility] Hematocrit Auto (Bld) [Volum e fraction]Ordered By: Guadalupe Holbrook on 05-05-2024 Hematocrit (Bld) [Volume fraction] Hematocrit [Volume Fraction] of Blood by Automated count 34.0-46.4 [facility] Hemoglobin [Mass/volume] in BloodOrdered By: Guadalupe Holbrook 05-05-2024 Hemoglobin (Bld) [Mass/Vol] Hemoglobin [Mass/volume] in Blood 11.8-15.4 [facility] Leukocytes [#/volume] correc joshua for nucleated erythrocytes in Blood by Automated counOrdered By: Guadalupe Holbrook on 05-05-2024 WBC corrected for nucl RBC Auto (Bld) [#/Vol] Leukocytes [#/volume] corrected for nucleated erythrocytes in Blood by Automated coun 3.8-11.6 [facility] Lymphocytes Auto (Bld) [#/Vo l]Ordered By: Guadalupe Holbrook 05-05-2024 Lymphocytes (Bld) [#/Vol] Lymphocytes [#/volume] in Blood by Automated count 1.00-4.8 [facility] Lymphocytes/100 WBC Auto (Bl d)Ordered By: Guadalupe Holbrook on 05-05-2024 Lymphocytes/100 WBC (Bld) Lymphocytes/100 leukocytes in Blood by Automated count . [facility] MCH Auto (RBC) [Entitic mass ]Ordered By: Guadalupe Holbrook on 05-05-2024 MCH (RBC) [Entitic mass] MCH [Entitic mass] by Automated count 24.7-34.3 [facility] MCHC Auto (RBC) [Mass/Vol]Or dered By: Guadalupe Holbrook on 05-05-2024 MCHC (RBC) [Mass/Vol] MCHC [Mass/volume] by Automated count 32.0-35.0 [facility] MCV Auto (RBC) [Entitic vol] Ordered By: Guadalupe Holbrook on 05-05-2024 MCV (RBC) [Entitic vol] MCV [Entitic vol ume] by Automated count 80-100 [facility] Monocytes Auto (Bld) [#/Vol] Ordered By: Guadalupe Holbrook on 05-05-2024 Monocytes (Bld) [#/Vol] Automated blood monocyte count 0.0-0.8 [facility] Monocytes/100 WBC Auto (Bld) Ordered By: Guadalupe Holbrook on 05-05-2024 Monocytes/100 WBC (Bld) Automated monocyte % . [facility] Neutrophils Auto (Bld) [#/Vo l]Ordered By: Guadalupe Holbrook on 05-05-2024 Neutrophils (Bld) [#/Vol] Neutrophils [#/volume] in Blood by Automated count 1.8-7.7 [facility] Neutrophils/100 WBC Auto (Bl d)Ordered By: Guadalupe Holbrook on 05-05-2024 Neutrophils/100 WBC (Bld) Automated neutrophil % . [facility] No Panel InformationOrdered By: Guadalupe Holbrook on 05-05-2024 Estimated GFR (CKD-EPI) > 60.0 mL/Min [facility] Creatinine Clearance (Chem N/A [facility] Nucleated erythrocytes [Pres ence] in Blood by Automated countOrdered By: Guadalupe Holbrook on 05-05-2024 Nucleated RBC Auto Ql (Bld) Nucleated erythrocytes [Presence] in Blood by Automated count 0-0.5 [facility] Platelet mean volume Auto (B ld) [Entitic vol]Ordered By: Guadalupe Holbrook on 05-05-2024 Platelet mean volume (Bld) [Entitic vol] Platelet mean volume [Entitic volume] in Blood by Automated count 6.3-10.7 [facility] Platelets Auto (Bld) [#/Vol] Ordered By: Guadalupe Holbrook on 05-05-2024 Platelets (Bld) [#/Vol] Platelets [#/vol ume] in Blood by Automated count 150-450 [facility] Potassium [Moles/volume] in Serum or PlasmaOrdered By: Guadalupe Holbrook on 05-05-2024 Potassium [Moles/Vol] Potassium [Moles/volume] in Serum or Plasma 3.5-5.1 [facility] Protein [Mass/volume] in Ser um or PlasmaOrdered By: Guadalupe Holbrook on 05-05-2024 Protein [Mass/Vol] Protein [Mass/volume ] in Serum or Plasma 6.4-8.9 [facility] RBC Auto (Bld) [#/Vol]Ordere d By: Guadalupe Holbrook on 05-05-2024 RBC (Bld) [#/Vol] Erythrocytes [#/volume] in Blood by Automated count 3.60-5.00 [facility] Serum or plasma albumin/glob ulin mass ratioOrdered By: Guadalupe Holbrook on 05-05-2024 Albumin/Globulin [Mass ratio] Serum or plasma albumin/globulin mass ratio [facility] Serum or plasma anion gap de terminationOrdered By: Guadalupe Holbrook on 05-05-2024 Anion gap [Moles/Vol] Serum or plasma an ion gap determination 6.0-15.0 [facility] Sodium [Moles/volume] in Ser um or PlasmaOrdered By: Guadalupe Holbrook on 05-05-2024 Sodium [Moles/Vol] Sodium [Moles/volume ] in Serum or Plasma 136-145 [facility] Urea nitrogen [Mass/volume] in Serum or PlasmaOrdered By: Guadalupe Holbrook on 05-05-2024 Urea nitrogen [Mass/Vol] Urea nitrogen [Mass/volume] in Serum or Plasma 7-25 [facility] WBC Auto (Bld) [#/Vol]Ordere d By: Guadalupe Holbrook on 05-05-2024 WBC (Bld) [#/Vol] Leukocytes [#/volume ] in Blood by Automated count 3.8-11.6 [facility] Auditory function testson Right Ear: Mild sloping to profound sensorineural hearing loss above 500 Hz Left Ear: Mild sloping to severe sensorineural hearing loss [facility] Zachary 08-04-2023 L Specimen: [id number] Received: 08/04/23 Status: NIVIA Gonzalez Num: [id number] Spec Type: Surgical Subm Dr: Guadalupe Holbrook MD Tissues: A Synovium-Biopsy or tissue (LT HAND) Procedures: HE, Gross/Micro L4 Age/ Patient Sex Location Account Attending Physician FarazPeña Saavedra 78/F [place] [id number] Guadalupe Holbrook MD SPEC NUM: [id number] RECD: 08/04/23 STATUS: NIVIA CHAIREZSe NUM: [id number] FIORELLA: 08/04/23- SUBM DR: Guadalupe Holbrook MD ENTERED: 08/04/23 [facility] DR: [facility] SPEC TYPE: Surgical DEPT: S ENTERED BY: [id number] RECV BY: [id number] ORDERED: HE, Gross/Micro L4 ORDERED: HE, Gross/Micro [...] supports the above rendered diagnosis. CPT Codes 37253 ---- ---- Specimen: [id number] Received: 08/04/23 Status: NIVIA Gonzalez Num: [id number] Spec Type: Surgical Subm Dr: Guadalupe Holbrook MD Tissues: A Synovium-Biopsy or tissue (LT HAND) Procedures: HE, Gross/Micro L4 ---- Patient: Peña Ruth [id number] (Continued) ---- Signed (signature on file) Emmanuelle Valenzuela MD 08/05/23 1144 Normal [facility] XR hand LT min 3V*on 024 XR hand LT min 3V* [facility] [place] [address] XRay Report Signed Patient: Peña Ruth MR#: [id number] : 1945 Acct:[id number] Age/Sex: 78 / F ADM Date: 07/23/23 Loc: [facility] Room: Type: [facility] Attending Dr: Guadalupe Holbrook MD Copies to: [...] THUMB. Impression dictated by: Arley Crocker Jr., D.O.07/23/2023 3:14 PM Dictation Location: [place] [address] Transcribed By: [facility] 07/23/231513 Dictated By: Arley Crocker Jr, DO 07/23/231512 Signed By: 07/23/231513 Normal [facility] Alanine aminotransferase [En zymatic activity/volume] in Serum or PlasmaOrdered By: Guadalupe Holbrook on 12-04-2022 ALT [Catalytic activity/Vol] 13 U/L 7-52 [facility] Albumin [Mass/volume] in Ser um or Plasma by Bromocresol green (BCG) dye binding methoOrdered By: Guadalupe Holbrook on 12-04-2022 Albumin BCG dye [Mass/Vol] 4.7 g/dL 3.5-5.7 [facility] Alkaline phosphatase [Enzyma tic activity/volume] in Serum or PlasmaOrdered By: Guadalupe Holbrook on 12-04-2022 ALP [Catalytic activity/Vol] 64 U/L 34-104 [facility] Aspartate aminotransferase [ Enzymatic activity/volume] in Serum or PlasmaOrdered By: Guadalupe Holbrook on 12-04-2022 AST [Catalytic activity/Vol] 23 U/L 13-39 [facility] Basophils Auto (Bld) [#/Vol] Ordered By: Guadalupe Holbrook on 12-04-2022 Basophils (Bld) [#/Vol] 0.1 10*3/uL 0.0-0.2 [facility] Basophils/100 WBC Auto (Bld) Ordered By: Guadalupe Holbrook on 12-04-2022 Basophils/100 WBC (Bld) 1.0 % . [facility] Bilirubin.total [Mass/volume ] in Serum or PlasmaOrdered By: Guadalupe Holbrook on 12-04-2022 Bilirubin [Mass/Vol] 1.2 mg/dL 0.3-1.0 [facility] Calcium [Mass/volume] in Ser um or PlasmaOrdered By: Guadalupe Holbrook on 12-04-2022 Calcium [Mass/Vol] 10.1 mg/dL 8.6-10.3 [facility] Carbon dioxide, total [Moles /volume] in Serum or PlasmaOrdered By: Guadalupe Holbrook on 12-04-2022 CO2 [Moles/Vol] 29.3 mmol/L 21.0-31.0 [facility] Chloride [Moles/volume] in S ying or PlasmaOrdered By: Guadalupe Holbrook on 12-04-2022 Chloride [Moles/Vol] 103 mmol/L 98-107 [facility] Creatinine [Mass/volume] in Serum or PlasmaOrdered By: Guadalupe Holbrook on 12-04-2022 Creatinine [Mass/Vol] 0.78 mg/dL 0.60-1.20 [facility] Eosinophils Auto (Bld) [#/Vo l]Ordered By: Guadalupe Holbrook on 12-04-2022 Eosinophils (Bld) [#/Vol] 0.1 10*3/uL 0.0-0.45 [facility] Eosinophils/100 WBC Auto (Bl d)Ordered By: Guadalupe Holbrook on 12-04-2022 Eosinophils/100 WBC (Bld) 2.0 % . [facility] Erythrocyte distribution wid th Auto (RBC) [Ratio]Ordered By: Guadalupe Holbrook on 12-04-2022 Erythrocyte distribution width (RBC) [Ratio] 14.8 % 11.9-15.3 [facility] Globulin Calc (S) [Mass/Vol] Ordered By: Guadalupe Holbrook 12-04-2022 Globulin (S) [Mass/Vol] 2.7 g/dL [facility] Glucose [Mass/volume] in Ser um or PlasmaOrdered By: Guadalupe Holbrook on 12-04-2022 Glucose [Mass/Vol] 76 mg/dL 70-100 [facility] Comment on above: ADA recommended refe rence rangeRandom Glucose Reference Range is dependent on time and content of last meal. Glucose of more than 200 mg/dL in a nonstressed, ambulatory subject supports the diagnosis of Diabetes Mellitus. Hematocrit Auto (Bld) [Volum e fraction]Ordered By: Guadalupe Holbrook on 12-04-2022 Hematocrit (Bld) [Volume fraction] 41.5 % 34.0-46.4 [facility] Hemoglobin [Mass/volume] in BloodOrdered By: Guadalupe Holbrook on 12-04-2022 Hemoglobin (Bld) [Mass/Vol] 14.1 g/dL 11.8-15.4 [facility] Leukocytes [#/volume] correc joshua for nucleated erythrocytes in Blood by Automated counOrdered By: Guadalupe Holbrook on 12-04-2022 WBC corrected for nucl RBC Auto (Bld) [#/Vol] 5.9 10*3/uL 3.8-11.6 [facility] Lymphocytes Auto (Bld) [#/Vo l]Ordered By: Guadalupe Holbrook on 12-04-2022 Lymphocytes (Bld) [#/Vol] 1.8 10*3/uL 1.00-4.8 [facility] Lymphocytes/100 WBC Auto (Bl d)Ordered By: Guadalupe Holbrook on 12-04-2022 Lymphocytes/100 WBC (Bld) 30.1 % . [facility] MCH Auto (RBC) [Entitic mass ]Ordered By: Guadalupe Holbrook on 12-04-2022 MCH (RBC) [Entitic mass] 29.3 pg 24.7-34.3 [facility] MCHC Auto (RBC) [Mass/Vol]Or dered By: Guadalupe Holbrook on 12-04-2022 MCHC (RBC) [Mass/Vol] 34.1 g/dL 32.0-35.0 [facility] MCV Auto (RBC) [Entitic vol] Ordered By: Guadalupe Holbrook on 12-04-2022 MCV (RBC) [Entitic vol] 86.0 fL 80-100 [facility] [facility] Monocytes Auto (Bld) [#/Vol] Ordered By: Guadalupe Holbrook on 12-04-2022 Monocytes (Bld) [#/Vol] 0.8 10*3/uL 0.0-0.8 [facility] Monocytes/100 WBC Auto (Bld) Ordered By: Guadalupe Holbrook on 12-04-2022 Monocytes/100 WBC (Bld) 12.9 % . F [facility] Neutrophils Auto (Bld) [#/Vo l]Ordered By: Guadalupe Holbrook on 12-04-2022 Neutrophils (Bld) [#/Vol] 3.2 10*3/uL 1.8-7.7 [facility] Neutrophils/100 WBC Auto (Bl d)Ordered By: Guadalupe Holbrook on 12-04-2022 Neutrophils/100 WBC (Bld) 54.0 % . [facility] No Panel InformationOrdered By: Guadalupe Holbrook on 12-04-2022 Estimated GFR (CKD-EPI) > 60.0 mL/Min [facility] Creatinine Clearance (Chem N/A [facility] Nucleated erythrocytes [Pres ence] in Blood by Automated countOrdered By: Guadalupe Holbrook on 12-04-2022 Nucleated RBC Auto Ql (Bld) 0.1 /100{WBC} 0-0.5 [facility] Platelet mean volume Auto (B ld) [Entitic vol]Ordered By: Guadalupe Holbrook on 12-04-2022 Platelet mean volume (Bld) [Entitic vol] 7.5 fL 6.3-10.7 [facility] Platelets Auto (Bld) [#/Vol] Ordered By: Guadalupe Holbrook on 12-04-2022 Platelets (Bld) [#/Vol] 183 10*3/uL 150-450 [facility] Potassium [Moles/volume] in Serum or PlasmaOrdered By: Guadalupe Holbrook on 12-04-2022 Potassium [Moles/Vol] 4.1 mmol/L 3.5-5.1 [facility] Protein [Mass/volume] in Ser um or PlasmaOrdered By: Guadalupe Holbrook on 12-04-2022 Protein [Mass/Vol] 7.4 g/dL 6.4-8.9 [facility] RBC Auto (Bld) [#/Vol]Ordere d By: Guadalupe Holbrook on 12-04-2022 RBC (Bld) [#/Vol] 4.82 10*6/uL 3.60-5.00 [facility] Serum or plasma albumin/glob ulin mass ratioOrdered By: Guadalupe Holbrook on 12-04-2022 Albumin/Globulin [Mass ratio] 1.7 {ratio} [facility] Serum or plasma anion gap de terminationOrdered By: Guadalupe Holbrook on 12-04-2022 Anion gap [Moles/Vol] 11.8 mmol/L 6.0-15.0 [facility] Sodium [Moles/volume] in Ser um or PlasmaOrdered By: Guadalupe Holbrook on 12-04-2022 Sodium [Moles/Vol] 140 mmol/L 136-145 [facility] Urea nitrogen [Mass/volume] in Serum or PlasmaOrdered By: Guadalupe Holbrook on 12-04-2022 Urea nitrogen [Mass/Vol] 18 mg/dL 7-25 [facility] WBC Auto (Bld) [#/Vol]Ordere d By: Guadalupe Holbrook on 12-04-2022 WBC (Bld) [#/Vol] 5.9 10*3/uL 3.8-11.6 [facility] XR wrist RT min 3V*on 2022 XR wrist RT min 3V* [facility] [employer] Other XR wrist RT min 3V* [facility] [employer] Other XR wrist RT min 3V* [address] [place] [address] [employer] Other XR wrist RT min 3V* [place] [address] [employer] Other XR wrist RT min 3V* XRay Report [employer] Other XR wrist RT min 3V* Signed [employer] Other XR wrist RT min 3V* Patient: Peña Ruth MR#: [id number] [employer] Other XR wrist RT min 3V* 9700 [employer] Other XR wrist RT min 3V* : 1945 Acct:[id number] [employer] Other XR wrist RT min 3V* Age/Sex: 77 / F ADM Date: 09/17/22 [employer] Other XR wrist RT min 3V* Loc: [facility] Room: [facility] [employer] Other XR wrist RT min 3V* Attending Dr: Eileen Holbrook MD [employer] Other XR wrist RT min 3V* Copies to: Guadalupe Holbrook MD [employer] Other XR wrist RT min 3V* Ordering Provider: Guadalupe Holbrook MD [employer] Other XR wrist RT min 3V* Date of Service: 09/17/22 [employer] Other XR wrist RT min 3V* XR/XR wrist RT min 3V*: Mass of right wrist [employer] Other XR wrist RT min 3V* CLINICAL DATA: Fall or right wrist mass at the radiocarpal joint and mass between the [facility] and [employer] Other XR wrist RT min 3V* fifth metacarpal heads. [employer] Other XR wrist RT min 3V* RIGHT WRIST - 4 views [employer] Other XR wrist RT min 3V* COMPARISON: Right العلي nd 05/25/2021 [employer] Other XR wrist RT min 3V* AP, lateral, oblique and ulnar deviation views were obtained. There is osteopenia. No acute [employer] Other XR wrist RT min 3V* fractures or dislocation are identified. Minor subluxation is again seen at the second metacarpal [employer] Other XR wrist RT min 3V* phalangeal joint. Joint space narrowing is present at that site and some of the other metacarpal [employer] Other XR wrist RT min 3V* phalangeal joints where there is subchondral cystic change. There is also distal interphalangeal [employer] Other XR wrist RT min 3V* joint space narrowin g, greatest at the second and fifth fingers. There is minimal marginal [employer] Other XR wrist RT min 3V* spurring. Mild degenerative changes also seen at the first carpal metacarpal joint. There is soft [employer] Other XR wrist RT min 3V* tissue swelling over the dorsum of the hand 12 the metacarpal heads, greater medially. [employer] Other XR wrist RT min 3V* XR/XR wrist RT min 3V* [employer] Other XR wrist RT min 3V* IMPRESSION: [employer] Other XR wrist RT min 3V* OSTEOPENIA AND DEGENERATIVE CHANGES. [employer] Other XR wrist RT min 3V* Impression dictated by: Callie Zuniga M.D.09/17/2022 12:31 PM [employer] Other XR wrist RT min 3V* Dictation Location: [place] [address] [employer] Other XR wrist RT min 3V* Transcribed By: LORE 09/17/22 1231 [employer] Other XR wrist RT min 3V* Dictated By: Callie Zuniga MD 09/17/22 1218 [employer] Other XR wrist RT min 3V* Signed By: [employer] Other XR wrist RT min 3V* 09/17/22 1231 No rt [employer] Other Covid-19 PCR (CVDTB)on SARS-CoV-2 (COVID-19) RNA ALYSON+probe Ql (Unsp spec) Detected Abnormal NOT DETECTED [facility] Comment on above: Result Comment: This test is not yet approved or cleared by the [place] FDA. When there are no FDA-approved or cleared tests available, and other criteria are met, FDA can make tests available under an emergency access mechanism called an Emergency Use Authorization (EUA). The EUA for this test is supported by the [place] of Health and Human Service's declaration that [...] longer be used). Performed By: #### C [facility] #### [facility] [address] [place] [address] Dr. 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: Order Comment: [facility] Testing performed at: QPT, [facility], [address] [place] [address], [address] [place] [address], [id number], Extrusion Line Operator: Lorenzo Sanders MD [facility] Collection Date/Time: [id number] [facility] Results Received Date/Time: [id number] [facility] Reported Date/Time: [id number] Result Comment: This test is intended to [...] providers and patients using the following websites: [email or web address]-HCP [email or web address]/[email or web address] Healthcare Providers: For additional information please refer to: http://education.[employer]/faq/DTU552 (This link is being provided for informational/educational purposes only.) This test has been authorized by the FDA under an Emergency Use Authorization (EUA) for use by authorized laboratories. The FDA authorized labeling is available on the [employer] website: www.[employer]/Covid19. 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 Result Comment: Brittney min D Status Deficiency <20 ng/mL Insufficiency 20-29 ng/mL Optimal 30-100 ng/mL Possible Toxicity >=150 ng/mL Performed By: #### V ITD #### [facility] [address] [place], [place] [id number] Vital Signs Date Time Vital Sign Value Performing Clinician Facility 10-21-2024 09:42-0400 Body height 157.5 cm Carlos Alberto Sanchez MD Work Phone: [facility] 10-21-2024 09:42-0400 Body mass index (BMI) [Ratio] 26.89 kg/m2 Carlos Alberto Sanchez MD Work Phone: [facility] 10-21-2024 09:42-0400 Body weight 66.68 kg Carlos Alberto Sanchez MD Work Phone: [facility] 10-21-2024 09:42-0400 Diastolic blood pressure 70 mm[Hg] Carlos Alberto Sanchez MD Work Phone: [facility] 10-21-2024 09:42-0400 Heart rate 72 /min Carlos Alberto Sanchez MD Work Phone: [facility] 10-21-2024 09:42-0400 SaO2% (BldA) [Mass fraction] 96 % Carlos Alberto Sanchez MD Work Phone: [facility] 10-21-2024 09:42-0400 Systolic blood pressure 134 mm[Hg] Carlos Alberto Sanchez MD Work Phone: [facility] 10-06-2024 08:35-0400 Body height 157.5 cm Carlos Alberto Sanchez MD Work Phone: [facility] 10-06-2024 08:35-0400 Body mass index (BMI) [Ratio] 26.7 kg/m2 Carlos Alberto Sanchez MD Work Phone: [facility] 10-06-2024 08:35-0400 Body weight 66.22 kg Carlos Alberto Sanchez MD Work Phone: [facility] 10-06-2024 08:35-0400 Diastolic blood pressure 86 mm[Hg] Carlos Alberto Sanchez MD Work Phone: [facility] 10-06-2024 08:35-0400 Heart rate 71 /min Carlos Alberto Sanchez MD Work Phone: [facility] 10-06-2024 08:35-0400 SaO2% (BldA) [Mass fraction] 96 % Carlos Alberto Sanchez MD Work Phone: [facility] 10-06-2024 08:35-0400 Systolic blood pressure 136 mm[Hg] Carlos Alberto Sanchez MD Work Phone: [facility] 06-17-2024 11:13-0500 Body height 157.5 cm Carlos Alberto Sanchez MD Work Phone: [facility] 06-17-2024 11:13-0500 Body mass index (BMI) [Ratio] 26.16 kg/m2 Carlos Alberto Sanchez MD Work Phone: [facility] 06-17-2024 11:13-0500 Body weight 64.86 kg Carlos Alberto Sanchez MD Work Phone: [facility] 06-17-2024 11:13-0500 Diastolic blood pressure 88 mm[Hg] Carlos Alberto Sanchez MD Work Phone: [facility] 06-17-2024 11:13-0500 Heart rate 82 /min Carlos Alberto Sanchez MD Work Phone: [facility] 06-17-2024 11:13-0500 SaO2% (BldA) [Mass fraction] 97 % Carlos Alberto Sanchez MD Work Phone: [facility] 06-17-2024 11:13-0500 Systolic blood pressure 138 mm[Hg] Carlos Alberto Sanchez MD Work Phone: [facility] 05-17-2024 12:35-0500 Diastolic blood pressure 66 mm[Hg] Carlos Alberot Sanchez II Work Phone: [facility] 05-17-2024 12:35-0500 Heart rate 62 /min Carlos Alberto Sanchez II Work Phone: [facility] 05-17-2024 12:35-0500 Respiratory rate 16 /min Carlos Alberto Sanchez II Work Phone: [facility] 05-17-2024 12:35-0500 SaO2% (BldA) [Mass fraction] 96 % Carlos Alberto Sanchez II Work Phone: [facility] 05-17-2024 12:35-0500 Systolic blood pressure 133 mm[Hg] Carlos Alberto Sanchez II Work Phone: [facility] 05-17-2024 12:05-0500 Inhaled oxygen flow rate 6 L/min Carlos Alberto Sanchez II Work Phone: [facility] 05-17-2024 08:02-0500 Body height 157.48 cm Carlos Alberto Sanchez II Work Phone: [facility] 05-17-2024 08:02-0500 Body temperature 98.1 [degF] Carlos Alberto Sanchez II Work Phone: [facility] 05-17-2024 08:02-0500 Body weight 67 kg Carlos Alberto Sanchez II Work Phone: [facility] 02-18-2024 09:12-0400 Body height 157.5 cm Ellen Sorto MD Work Phone: [facility] 02-18-2024 09:12-0400 Body mass index (BMI) [Ratio] 26.7 kg/m2 Ellen Sorto MD Work Phone: [facility] 02-18-2024 09:12-0400 Body weight 66.22 kg Ellen Sorto MD Work Phone: [facility] 02-18-2024 09:12-0400 Diastolic blood pressure 74 mm[Hg] Ellen Sorto MD Work Phone: [facility] 02-18-2024 09:12-0400 Systolic blood pressure 140 mm[Hg] Ellen Sorto MD Work Phone: [facility] 12-04-2022 10:30-0400 Body height 157.48 cm Guadalupe Holbrook Other [employer] Other 12-04-2022 10:30-0400 Body mass index (BMI) [Ratio] 25.79 kg/m2 Guadalupe Holbrook Other [employer] Other 12-04-2022 10:30-0400 Body weight 63.96 kg Guadalupe Holbrook Other [employer] Other 10-25-2022 08:05-0400 Body height 157.48 cm II Carlos Alberto Sanchez Work Phone: [facility] 10-25-2022 08:05-0400 Body weight 65.77 kg II Carlos Alberto Sanchez Work Phone: [facility] 10-25-2022 08:05-0400 Diastolic blood pressure 88 mm[Hg] II Carlos Alberto Sanchez Work Phone: [facility] 10-25-2022 08:05-0400 Heart rate 72 /min II Carlos Alberto Sanchez Work Phone: [facility] 10-25-2022 08:05-0400 Respiratory rate 16 /min II Carlos Alberto Sanchez Work Phone: [facility] 10-25-2022 08:05-0400 SaO2% (BldA) [Mass fraction] 97 % II Carlos Alberto Sanchez Work Phone: [facility] 10-25-2022 08:05-0400 Systolic blood pressure 173 mm[Hg] II Carlos Alberto Sanchez Work Phone: [facility] 10-13-2022 10:25-0400 Body height 157.48 cm Jess Moss Other [employer] Other 10-13-2022 10:25-0400 Body mass index (BMI) [Ratio] 25.93 kg/m2 Jess Moss Other [employer] Other 10-13-2022 10:25-0400 Body temperature 99.4 [degF] Jess Moss Other [employer] Other 10-13-2022 10:25-0400 Body weight 64.32 kg Jess Moss Other [employer] Other 10-13-2022 10:25-0400 Diastolic blood pressure 85 mm[Hg] Jess Moss Other [employer] Other 10-13-2022 10:25-0400 Respiratory rate 18 /min Jess Moss Other [employer] Other 10-13-2022 10:25-0400 SaO2% (BldA) [Mass fraction] 93 % Jess Moss Other [employer] Other 10-13-2022 10:25-0400 Systolic blood pressure 141 mm[Hg] Jess Moss Other [employer] Other Encounters Encounter Date Encounter Type Care Provider Facility Start: 10-21-2024 End: 10-21-2024 AdWhirlheet Carlos Alberto Sanchez MD Work Phone: [facility] Start: 10-21-2024 End: 10-21-2024 [employer]irlheet Carlos Alberto Sanchez MD Work Phone: [facility] Start: 10-21-2024 End: 10-21-2024 Office outpatient visit 25 minutes Carlos Alberto Sanchez MD Work Phone: [facility] Comment on above: Acute non-recurrent sinusitis, unspecified location (Primary Dx); Osteopenia of lumbar spine; Sciatica of left side; Rheumatoid arthritis involving multiple sites with positive rheumatoid factor (CMS/HCC); Rheumatoid arthritis, unspecified Start: 10-21-2024 End: 10-21-2024 ambulatory CARLOS ALBERTO SANCHEZ Not Available Start: 10-06-2024 End: 10-06-2024 Bamboo flowsheet Carlos Alberto Sanchez MD Work Phone: [facility] Start: 10-06-2024 End: 10-06-2024 Bamboo flowsheet Carlos Alberto Sanchez MD Work Phone: [facility] Start: 10-06-2024 End: 10-06-2024 Clinisync Result Encounter Carlos Alberto Sanchez MD Work Phone: [facility] Unsolicited Start: 10-06-2024 End: 10-06-2024 Office outpatient visit 25 minutes Carlos Alberto Sanchez MD Work Phone: [facility] Comment on above: Benign essential hyp ertension (CMS/HCC) (Primary Dx); Estrogen deficiency; Atherosclerosis of creek coronary artery of creek heart without angina pectoris (CMS/HCC); Left lumbar radiculopathy; Gastroesophageal reflux disease without esophagitis; Mixed hyperlipidemia (CMS/HCC); Vitamin D deficiency; Sciatica of left side; Rheumatoid arthritis involving multiple sites with positive rheumatoid factor (CMS/HCC); Acute non-recurrent sinusitis, unspecified location Start: 10-06-2024 End: 10-06-2024 ambulatory CARLOS ALBERTO SANCHEZ Not Available Start: 07-13-2024 End: 07-13-2024 ambulatory Carlos Alberto Sanchez II Work Phone: [facility] Work Phone: Start: 07-13-2024 End: 07-13-2024 Patient encounter procedure Carlos Alberto Sanchez II Work Phone: [facility] Work Phone: Start: 06-17-2024 End: 06-17-2024 Office outpatient visit 25 minutes Carlos Alberto Sanchez MD Work Phone: [facility] Comment on above: Atherosclerosis of n ative coronary artery of creek heart without angina pectoris (CMS/HCC) (Primary Dx); Rheumatoid arthritis involving multiple sites with positive rheumatoid factor (CMS/HCC); Arthritis of wrist, left; Benign essential hypertension ([facility]/HCC) Start: 06-17-2024 End: 06-17-2024 ambulatory CARLOS ALBERTO SANCHEZ Not Available Start: 06-15-2024 End: 06-15-2024 Patient encounter procedure Carlos Alberto Sanchez II Work Phone: [facility] Work Phone: Start: 06-01-2024 End: 06-01-2024 Patient encounter procedure Carlos Alberto Sanchez II Work Phone: [facility] Work Phone: Start: 05-18-2024 End: 05-18-2024 Bamboo flowsheet Leelaradha Pinto AUD Work Phone: [facility] Start: 05-18-2024 End: 05-18-2024 Bamboo flowsheet Leela Pinto AUD Work Phone: [facility] Start: 05-18-2024 End: 05-18-2024 ambulatory LEELARADHA PINTO Not Available Start: 05-18-2024 End: 05-18-2024 Patient encounter procedure Elelaradha Pinto AUD Work Phone: [facility] Comment on above: Sensorineural hearin g loss, bilateral (Primary Dx) Start: 05-17-2024 Non-patient / Non-visit Carlos Alberto Sanchez II Work Phone: [facility] Work Phone: Start: 05-17-2024 End: 05-17-2024 Admission to same day surgery center Carlos Alberto Sanchez II Work Phone: [facility] [place] Start: 05-17-2024 End: 05-17-2024 ambulatory Carlos Alberto Sanchez Facility:[facility] Start: 05-05-2024 End: 05-05-2024 Patient encounter procedure Carlos Alberto Sanchez II Work Phone: [facility] Work Phone: Start: 05-05-2024 End: 05-05-2024 ambulatory Carlos Alberto Sanchez II Work Phone: [facility] Work Phone: Start: 05-05-2024 Encounter for preprocedural laboratory examination Guadalupe Holbrook [facility] Start: 04-30-2024 End: 04-30-2024 ambulatory [facility] Work Phone: Start: 04-30-2024 End: 04-30-2024 Patient encounter procedure [facility] Work Phone: Start: 04-21-2024 End: 04-21-2024 Telephone encounter Leela Keri Blair AUD Work Phone: [facility] Start: 04-13-2024 End: 04-13-2024 Bamboo flowsheet Leela Pinto AUD Work Phone: [facility] Start: 04-13-2024 End: 04-13-2024 Bamboo flowsheet Leelaradha Pinto AUD Work Phone: [facility] Start: 04-13-2024 End: 04-13-2024 Patient encounter procedure Leela S Pinto AUD Work Phone: [facility] Comment on above: Sensorineural hearin g loss, bilateral (Primary Dx) Start: 04-13-2024 End: 04-13-2024 ambulatory LEELA PINTO Not Available Start: 02-18-2024 End: 02-18-2024 [...] Start: 02-16-2024 End: 02-16-2024 [facility] Start: 02-16-2024 End: 02-16-2024 Bamboo flowsheet Anna Navarro [facility] Work Phone: [facility] Start: 02-16-2024 End: 02-16-2024 Clinical Support Annatony Hoffman [facility] Work Phone: [facility] Comment on above: Sensorineural hearin g loss (SNHL) of both ears (Primary Dx); Tinnitus, bilateral; Impaired auditory discrimination, right Start: 12-17-2023 End: 12-17-2023 ambulatory CARLOS ALBERTO SANCHEZ Not Available Start: 10-14-2023 End: 10-14-2023 ambulatory II Carlos Alberto Sanchez Work Phone: [facility] Work Phone: Start: 10-14-2023 End: 10-14-2023 Patient encounter procedure II Carlos Alberto Sanchez Work Phone: [facility] Work Phone: Start: 09-09-2023 End: 09-09-2023 ambulatory II Carlos Alberto Sanchez Work Phone: [facility] Work Phone: Start: 09-09-2023 End: 09-09-2023 Patient encounter procedure II Carlos Alberto Sanchez Work Phone: [facility] Work Phone: Start: 08-15-2023 End: 08-15-2023 ambulatory II Carlos Alberto Sanchez Work Phone: [facility] Work Phone: Start: 08-15-2023 End: 08-15-2023 Patient encounter procedure II Carlos Alberto Sanchez Work Phone: [facility] Work Phone: Start: 08-04-2023 End: 08-04-2023 ambulatory II Carlos Alberto Sanchez Work Phone: [facility] Work Phone: Start: 08-04-2023 End: 08-04-2023 Departed Referred II CarlosA lberto Sanchez Work Phone: [facility] [place] Work Phone: Start: 07-24-2023 Telephone encounter Carlos Alberto peters MD Work Phone: [facility] Comment on above: Med Refill (/folic a thad (Folvite) 1 MG tablet /TO [facility] [place]) Start: 07-23-2023 Office outpatient vi sit 25 minutes Guadalupe Sterlingey [facility] Start: 07-23-2023 End: 07-23-2023 Patient encounter procedure II Carlos Alberto Sanchez Work Phone: [facility] Start: 07-23-2023 End: 07-23-2023 ambulatory II Carlos Alberto Sanchez Work Phone: [facility] Work Phone: Start: 02-25-2023 End: 02-25-2023 ambulatory Guadalupe Sterlingey Other [employer] Other Start: 02-25-2023 Postop follow up vis it related to original px Guadalupe Calvey [facility] Start: 01-28-2023 End: 01-28-2023 ambulatory Guadalupe Yusef Other [employer] Other Start: 01-28-2023 Postop follow up vis it related to original px Guadalupe Calvey [facility] Start: 12-16-2022 End: 12-16-2022 ambulatory II Carlos Alberto Sanchez Work Phone: [facility] Work Phone: Start: 12-16-2022 End: 12-16-2022 Departed Referred II Carlos Alberto Sanchez Work Phone: [facility] [place] Work Phone: Start: 12-04-2022 Office outpatient vi sit 25 minutes [facility] Start: 12-04-2022 End: 12-04-2022 ambulatory II Carlos Alberto Sanchez Work Phone: [facility] Work Phone: Start: 12-04-2022 End: 12-04-2022 Patient encounter procedure II Carlos Alberto Sanchez Work Phone: [facility]Electrodiagnostics Work Phone: Start: 10-25-2022 End: 10-25-2022 ambulatory II Carlos Alberto Sanchez Work Phone: [facility] Work Phone: Start: 10-25-2022 End: 10-25-2022 Patient encounter procedure II Carlos Alberto Sanchez Work Phone: [facility] [place] Work Phone: Start: 10-14-2022 End: 10-14-2022 ambulatory II Carlos Alberto Sanchez Work Phone: [facility] Work Phone: Start: 10-14-2022 End: 10-14-2022 Patient encounter procedure II Carlos Alberto Sanchez Work Phone: [facility] [place] Work Phone: Start: 10-13-2022 End: 10-13-2022 ambulatory Jess Moss Other [employer] Other Start: 10-13-2022 Office outpatient vi sit 15 minutes Jess Moss [facility] Start: 10-08-2022 End: 10-08-2022 Patient encounter procedure II Carlos Alberto Sanchez Work Phone: [facility]MRI [address] Work Phone: Start: 09-17-2022 Office outpatient ne w 30 minutes Guadalupe [facility] Start: 09-17-2022 End: 09-17-2022 ambulatory II Carlos Alberto Sanchez Work Phone: [facility] Work Phone: Start: 09-17-2022 End: 09-17-2022 Patient encounter procedure II Carlos Alberto Sanchez Work Phone: [facility] Start: 07-28-2022 End: 07-28-[address] CARLOS ALBERTO SANCHEZ Facility:[facility] Start: 02-28-2022 End: 03-01-[address] CALLIE ANGULO Facility:[facility] Procedures Date Procedure Procedure Detail Performing Clinician Start: 10-06-2024 XR LUMBAR SPINE 2 OR 3V Carlos Alberto Sanchez MD Work Phone: Start: 05-17-2024 OR Finger Trigger Release/Cyst/Mass Exc (Right) Carlos Alberto Sanchez II Work Phone: Start: 02-16-2024 AUDITORY FUNCTION TESTS Anna Hoffman [facility] Work Phone: Start: 07-23-2023 Plain X-ray of left hand II Carlos Alberto Sanchez Work Phone: Start: 10-25-2022 MRI of right wrist II Trell Sanchez Work Phone: Start: 10-25-2022 XR pre/post mri xray II Carlos Alberto Sanchez Work Phone: Start: 10-25-2022 MRI of right hand II Giuseppe Sanchez Work Phone: Start: 09-17-2022 Plain X-ray of right wrist II Carlos Albertomanisha Sanchez Work Phone: History of appendectomy Hx of appendectom y II Carlos Alberto Sanchez Work Phone: Plan of Treatment Date Care Activity Detail Author Start: 02-21-2025 Influenza vaccination Influenz a Vaccine (Season Ended) [facility] Start: 12-16-2024 End: 12-16-2024 Patient encounter procedure 12/16/2024 10:00 AM EDT Office Visit [facility] [address] [place] [address] Carlos Alberto Sanchez MD [address] [place] [address] [facility] Start: 12-06-2024 End: 12-06-2024 Patient encounter procedure 12/06/2024 3:15 PM EDT Office Visit [facility] [address] [place] [address] Carlos Alberto Sanchez MD [address] [place] [address] [facility] Start: 10-21-2024 End: 10-21-2024 Patient encounter procedure [facility] Comment on above: Sciatica of left shreya e; Rheumatoid arthritis involving multiple sites with positive rheumatoid factor (CMS/HCC) Start: 10-06-2024 End: 10-06-2025 25-hydroxyvitamin D3 [Mass/volume] in Serum or Plasma Vitamin D 25 hydroxy Lab Routine Vitamin D deficiency Expected: 10/06/2024 (Approximate), Expires: 10/06/2025 [facility] Comment on above: Expected: 10/06/2024 (Approximate), Expires: 10/06/2025 Start: 10-06-2024 End: 10-06-2025 CBC panel - Blood by Automated count CBC Lab Routine Benign essential hypertension (CMS/HCC) Atherosclerosis of creek coronary artery of creek heart without angina pectoris (CMS/HCC) Expected: 10/06/2024 (Approximate), Expires: 10/06/2025 [facility] Comment on above: Expected: 10/06/2024 (Approximate), Expires: 10/06/2025 Start: 10-06-2024 End: 10-06-2025 Comprehensive metabolic 2000 panel - Serum or Plasma Comprehensive metabolic panel Lab Routine Benign essential hypertension (CMS/HCC) Atherosclerosis of creek coronary artery of creek heart without angina pectoris (CMS/HCC) Expected: 10/06/2024 (Approximate), Expires: 10/06/2025 [facility] Comment on above: Expected: 10/06/2024 (Approximate), Expires: 10/06/2025 Start: 10-06-2024 End: 10-06-2025 DXA Skeletal system Views for bone density DEXA bone density Imaging Routine Estrogen deficiency Expected: 10/06/2024 (Approximate), Expires: 10/06/2025 [facility] Work Phone: Comment on above: Expected: 10/06/2024 (Approximate), Expires: 10/06/2025 Start: 10-06-2024 End: 10-06-2025 Lipid 1996 panel - Serum or Plasma Lipid panel Lab Routine Mixed hyperlipidemia ([facility]) Expected: 10/06/2024 (Approximate), Expires: 10/06/2025 [facility] Comment on above: Expected: 10/06/2024 (Approximate), Expires: 10/06/2025 Start: 10-06-2024 End: 10-06-2025 TSH W/REFLEX TO FT4 TSH W/REFLEX TO FT4 Lab Routine Benign essential hypertension ([facility]) Atherosclerosis of creek coronary artery of creek heart without angina pectoris ([facility]) Expected: 10/06/2024 (Approximate), Expires: 10/06/2025 [facility] Comment on above: Expected: 10/06/2024 (Approximate), Expires: 10/06/2025 Start: 10-06-2024 End: 10-06-2025 XR Lumbar spine 2 or 3 Views XR lumbar spine 2 or 3 views Imaging Routine Sciatica of left side Rheumatoid arthritis involving multiple sites with positive rheumatoid factor ([facility]) Expected: 10/06/2024, Expires: 10/06/2025 [facility] Comment on above: Expected: 10/06/2024 , Expires: 10/06/2025 Start: 10-06-2024 End: 10-06-2024 Patient encounter procedure 10/06/2024 8:30 AM EDT Office Visit [facility] [address] [facility] [address] [place] [address] Carlos Alberto Sanchez MD [address] [place] [address] Arrived [facility] Comment on above: Arrived Start: 07-17-2024 Medicare Annual Wellness (AWV) Medicare Annual Wellness (AWV) [facility] Start: 06-17-2024 End: 06-17-2024 Patient encounter procedure 06/17/2024 1:00 PM EST Office Visit [facility] [address] [facility] [address] [place] [address] Carlos Alberto Sanchez MD [address] [place] [address] [facility] Start: 05-18-2024 End: 05-18-2024 Patient encounter procedure 05/18/2024 9:00 AM EST Office Visit [facility] [address] [place] [id number] Leela Pinto, [facility] [address] [place] [address] [facility] Start: 05-17-2024 [facility] Start: 05-17-2024 [facility] Start: 04-13-2024 End: 04-13-2024 Patient encounter procedure [facility] Comment on above: Arrived Start: 02-22-2024 Influenza vaccination Influenza Vacc ine (#1) [facility] Start: 02-18-2024 End: 02-18-2024 Patient encounter procedure [facility] Comment on above: Bilateral hearing lo ss, unspecified hearing loss type Start: 02-16-2024 End: 02-16-2024 Clinical Support 02/16/2024 9:45 AM EDT Clinical Support [facility] [address] [place] [id number] nAna Hoffman, [facility] [address] [place] [address] Arrived [facility] Comment on above: Arrived Start: 12-17-2023 End: 12-17-2023 Patient encounter procedure 12/17/2023 1:00 PM EDT Office Visit [facility] [address] [facility] [address] [place] [id number] Carlos Alberto Sanchez MD [address] [facility] [address] [place] [address] [facility] Start: 02-21-2023 Influenza vaccination Influenza Vacc ine (#1) [facility] Patient Education Know your Meds [facility] Work Phone: Patient referral [facility] Work Phone: Immunizations Immunization Date Immunization Notes Care Provider Fa [facility] 2020 Influenza, High-dose Seasonal, Quadrivalent, Preservative Free Carlos Alberto Sanchez MD Work Phone: [facility] 2020 influenza virus vacc ine, unspecified formulation Carlos Alberto Sanchez MD Work Phone: [facility] 03-15-2019 Influenza, High-dose Seasonal, Quadrivalent, Preservative Free Carlos Alberto Sanchez MD Work Phone: [facility] 03-15-2019 pneumococcal conjuga te vaccine, 13 valent Carlos Alberto Sanchez MD Work Phone: [facility] 03-15-2019 zoster vaccine recombinant D tonya Sanchez MD Work Phone: [facility] 04-02-2018 seasonal influenza, intradermal, preservative free Carlos Alberto Sanchez MD Work Phone: [facility] 07-23-2016 pneumococcal conjuga te vaccine, 13 valent Carlos Alberto Sanchez MD Work Phone: [facility] 07-23-2016 pneumococcal Conjuga te, unspecified formulation Carlos Alberto Sanchez MD Work Phone: [facility] 2016 pneumococcal polysaccharide vaccine, 23 valgisella Sanchez MD Work Phone: [facility] Payers Date Payer Category Payer Self-pay 2021 Medicare AN[employer]M MEDICARE ADVANTAGE AN[employer]M MEDICARE ADVANTAGE [id number] 2021-Present [address] [place] [address] [id number] 2021 Medicare (Managed Care) DONAVNI Sergio HARMON ADVANTAGE [id number] 5 1959 Unknown [id number] 1944 Unknown [id number] .2.593 1944 Unknown [id number] [id number] .2.593 1944 Unknown [id number] 2.16.840.1.465686.3.579 .2.1258 1944 Unknown [id number] 2.16.840.1.874807.3.579 .2.125 1944 Unknown [id number] 2.16.840.1.407565.3.579 .2.125 1944 Unknown [id number] 2.16.840.1.795314.3.579 .2.1259 1944 Unknown [id number] 2.16.840.1.381086.3.579 .2.125 1944 Unknown [id number] 2.16.840.1.284106.3.579 .2.1259 1944 Unknown [id number] 2.16.840.1.818911.3.579 .2.1259 1944 Unknown [id number] 2..840.1.196256.3.579 .2.1259 Medicare Medicare [id number] Private Health Insurance [facility] Insurance [employer] [id number] Unknown [id number] [id number] .2.531 Unknown [id number] 2.16.840.1.122946.3.579 .2.531 Unknown [id number] 2.16.840.1.397437.3.579 .2.531 Unknown [id number] [id number] .2.531 Social History Date Type Detail Facility Unknown if ever smoked [facility] Work Phone: Start: 12-22-2022 End: 06-16-2024 Sex Assigned At [facility] Start: 1945 Sex Assigned At Female F [facility] Start: 12-19-2022 End: 05-17-2024 Tobacco smoking status NHIS Never smoked tobacco [facility] Start: 12-19-2022 Tobacco use and exposure Smokeless tobacco non-user [facility] Start: 07-17-2023 End: 10-21-2024 Alcohol intake Lifetime non-drinker (finding) [facility] Start: 12-22-2022 End: 06-16-2024 History of Social function [facility] How often do you get together with friends or relatives? Patient refused [facility] Are you now , , , , never or living with a partner? Refused [facility] Start: 1945 Sex Assigned At Not on file N [facility] Start: 04-30-2024 End: 07-13-2024 Sex Female (finding) [facility] Do you feel stress - tense, restless, nervous, or anxious, or unable to sleep at night because your mind is troubled all the time - these days [OSQ] Not at all [facility] Goals Date Patient Goal Desired Activity /State Functional Status Date Assessment Result Facility 10-06-2024 Patient Health Quest ionnaire 2 item (PHQ-2) [Reported] [facility] Clinical Notes 08-10-2020 to 10-21-2024 Carlos Alberto Sanchez MD - 10/21/2024 10:30 AM Migel Sanchez MD - 10/06/2024 8:30 AM Migel Sanchez MD - 06/17/2024 11:30 AM NIKKI Pace - 05/18/2024 9:00 AM EST Note Date & Type Note Facility 10-21-2024 History of Presen t illness Narrative Images from the original note were not included. HPI Results Additional comments: Back xray,labs,dexa scan Last edited by Mary Merritt LPN on 10/21/2024 9:42 AM. Subjective Patient ID: Peña Ruth is a 79 y.o. female who presents for Results (Back xray,labs,dexa scan ), Sinusitis, and Back Pain. Cough Patient complains of productive cough. Symptoms began 6 months ago. Symptoms have been improved since last visit. Associated symptoms include: change in voice and postnasal drip. Patient does not have a history of smoking. Back Pain Patient presents for evaluation of low back problems. Symptoms have been present for 1 year and include pain in lower back, posterior hip. Initial inciting event: none. Alleviating factors identifiable by the patient are none. Aggravating factors identifiable by the patient are sitting. Pt completed xray as ordered Sinusitis Associated symptoms include coughing. Back Pain Cough Current Outpatient Medications on File Prior to Visit Medication Sig Dispense Refill amLODIPine-valsartan (Exforge) 5-320 MG tablet Take 1 tablet by mouth Daily 100 tablet 3 folic acid (Folvite) 1 MG tablet Take 1 tablet (1 mg) by mouth Daily 100 tablet 1 HYDROcodone-acetaminophen (Lookout) 5-325 MG tablet hydroxychloroquine (Plaquenil) 200 MG tablet Take 1 [...] mg) by mouth Daily 100 tablet 3 [DISCONTINUED] amoxicillin-clavulanate (Augmentin) 875-125 MG tablet Take 1 tablet (875 mg) by mouth in the morning and 1 tablet (875 mg) before bedtime. Do all this for 10 days. 20 tablet 0 [DISCONTINUED] benzonatate (Tessalon Perles) 100 MG capsule Take 1 capsule (100 mg) by mouth 3 (three) times a day as needed for cough for up to 10 days Do not crush or chew. 30 capsule 0 No current facility-administered medications on file prior to visit. I have reviewed and reconciled the history and medication list with the patient today. No Known Allergies Social History Tobacco Use Smoking status: Never Smokeless tobacco: Never Substance Use Topics Alcohol use: Never Drug use: Never Family History Problem Relation Name Age of Onset Hypertension Mother Lorraine Chrsitensen Diabetes Mother Lorraine Christensen Cancer Mother Lorraine [...] Tendon Realignment TUBAL LIGATION Visit Vitals BP 134/70 Pulse 72 Ht 5' 2 Wt 147 lb SpO2 96% BMI 26.89 kg/m Smoking Status Never BSA 1.71 m Review of Systems Respiratory: Positive for cough. Musculoskeletal: Positive for back pain. Objective Physical Exam Constitutional: General: She is [...] and Affect: Mood normal. Behavior: Behavior normal. Office Visit on 10/06/2024 Component Date Value Ref Range Status CHOLESTEROL, TOTAL 10/06/2024 145 <200 mg/dL Final HDL CHOLESTEROL 10/06/2024 74 > OR = 50 mg/dL Final TRIGLYCERIDES 10/06/2024 56 <150 mg/dL Final LDL-CHOLESTEROL 10/06/2024 57 mg/dL (calc) Final Comment: Reference range: <100 Desirable range <100 mg/dL for primary prevention; <70 mg/dL for patients with CHD or diabetic patients with > or = 2 CHD risk factors. LDL-C is now calculated using the Faraz-Zoe calculation, which is a validated novel method providing better accuracy than the Friedewald equation in the estimation of LDL-C. Faraz PEDERSEN et al. YOMI. 2013;310(19): 8545-0517 (http://education.QuestDiagnostics.co m/faq/HSS564) CHOL/HDLC RATIO 10/06/2024 2.0 <5.0 (calc) Final NON HDL CHOLESTEROL 10/06/2024 71 <130 mg/dL (calc) Final Comment: For patients with diabetes plus 1 major ASCVD risk factor, treating to a non-HDL-C goal of <100 mg/dL (LDL-C of <70 mg/dL) is considered a therapeutic option. WHITE BLOOD CELL COUNT 10/06/2024 6.7 3.8 - 10.8 Thousand/uL Final RED BLOOD CELL COUNT 10/06/2024 4.82 3.80 - 5.10 Million/uL Final HEMOGLOBIN 10/06/2024 13.7 11.7 - 15.5 g/dL Final HEMATOCRIT 10/06/2024 42.0 35.0 - 45.0 % Final MCV 10/06/2024 87.1 80.0 - 100.0 fL Final MCH 10/06/2024 28.4 27.0 - 33.0 pg Final MCHC 10/06/2024 32.6 32.0 - 36.0 g/dL Final Comment: For adults, a slight decrease in the calculated MCHC value (in the range of 30 to 32 g/dL) is most likely not clinically significant; however, it should be interpreted with caution in correlation with other red cell parameters and the patient's clinical condition. RDW 10/06/2024 13.4 11.0 - 15.0 % Final PLATELET COUNT 10/06/2024 218 140 - 400 Thousand/uL Final MPV 10/06/2024 10.0 7.5 - 12.5 fL Final Glucose 10/06/2024 85 65 - 99 mg/dL Final Comment: Fasting reference interval BUN 10/06/2024 23 7 - 25 mg/dL Final Creatinine 10/06/2024 0.77 0.60 - 0.95 mg/dL Final EGFR 10/06/2024 78 > OR = 60 mL/min/1.73m2 Final BUN/CREATININE RATIO 10/06/2024 SEE NOTE: 6 - 22 (calc) Final Comment: Not Reported: BUN and Creatinine are within reference range. Sodium 10/06/2024 141 135 - 146 mmol/L Final Potassium, Bld 10/06/2024 4.1 3.5 - 5.3 mmol/L Final Chloride 10/06/2024 104 98 - 110 mmol/L Final Carbon Dioxide 10/06/2024 27 20 - 32 mmol/L Final Calcium 10/06/2024 9.5 8.6 - 10.4 mg/dL Final PROTEIN, TOTAL 10/06/2024 7.7 6.1 - 8.1 g/dL Final ALBUMIN 10/06/2024 4.4 3.6 - 5.1 g/dL Final GLOBULIN 10/06/2024 3.3 1.9 - 3.7 g/dL (calc) Final ALBUMIN/GLOBULIN RATIO 10/06/2024 1.3 1.0 - 2.5 (calc) Final BILIRUBIN, TOTAL 10/06/2024 1.0 0.2 - 1.2 mg/dL Final ALKALINE PHOSPHATASE 10/06/2024 73 37 - 153 U/L Final AST 10/06/2024 22 10 - 35 U/L Final ALT 10/06/2024 10 6 - 29 U/L Final TSH W/REFLEX TO FT4 10/06/2024 4.12 0.40 - 4.50 mIU/L Final VITAMIN D,25-OH,TOTAL,IA 10/06/2024 64 30 - 100 ng/mL Final Comment: Vitamin D Status 25-OH Vitamin D: Deficiency: <20 ng/mL Insufficiency: 20 - 29 ng/mL Optimal: > or = 30 ng/mL For 25-OH Vitamin D testing on patients on D2-supplementation and patients for whom quantitation of D2 and D3 fractions is required, the QuestAssureD(TM) 25-OH VIT D, (D2,D3), LC/MS/MS is recommended: order code 47647 (patients >2yrs). See Note 1 Note 1 For additional information, please refer to http://education.[employer] /faq/QAV835 (This link is being provided for informational/ educational purposes only.) Assessment/Plan Diagnoses and all orders for this visit: Acute non-recurrent sinusitis, unspecified location - Resolved. Osteopenia of lumbar spine - BMD ordered. Sciatica of left side Rheumatoid arthritis involving multiple sites with positive rheumatoid factor ([facility]) Rheumatoid arthritis, unspecified Follow up in about 6 weeks (around 12/02/2024). documented in this encounter [facility] 10-06-2024 History of Presen t illness Narrative Images from the original note were not included. Subjective Patient ID: Peña Ruth is a 79 y.o. female who presents for Cough and Back Pain. Cough Patient complains of productive cough. Symptoms began 6 months ago. Symptoms have been unchanged since that time.The cough is productive and is worse at night. Associated symptoms include: change in voice and postnasal drip. Patient does not have a history of smoking. Pt states she had a chest cold 6 months ago and has had a lingering cough. Back Pain Patient presents for evaluation of low back problems. Symptoms have been present for 1 year and include pain in lower back, posterior hip. Initial inciting event: none. Alleviating factors identifiable by the patient are none. Aggravating factors identifiable by the patient are sitting. T Cough Back Pain Current Outpatient Medications on File Prior to Visit Medication Sig Dispense Refill amLODIPine-valsartan (Exforge) 5-320 MG tablet Take 1 [...] mg) by mouth Daily 100 tablet 3 HYDROcodone-acetaminophen (Lookout) 5-325 MG tablet No current facility-administered medications on file prior [...] Tendon Realignment TUBAL LIGATION Visit Vitals BP 136/86 Pulse 71 Ht 5' 2 Wt 146 lb SpO2 96% BMI 26.70 kg/m Smoking Status Never BSA 1.7 m Review of Systems Respiratory: Positive for cough. Musculoskeletal: Positive for back pain. Objective Physical Exam Constitutional: General: She is not in acute distress. Appearance: Normal appearance. She is well-developed. HENT: Head: Normocephalic and atraumatic. Right Ear: Tympanic membrane and ear canal normal. Left Ear: Tympanic membrane and ear canal normal. Nose: Congestion present. Mouth/Throat: Mouth: Mucous membranes are moist. Pharynx: Posterior oropharyngeal erythema present. Eyes: General: No scleral icterus. Conjunctiva/sclera: Conjunctivae [...] Diagnoses and all orders for this visit: Benign essential hypertension (CMS/HCC) - CBC; Future - Comprehensive metabolic panel; Future - TSH W/REFLEX TO FT4; Future Estrogen deficiency - DEXA bone density; Future Atherosclerosis of creek coronary artery of creek heart without angina pectoris (CMS/HCC) - CBC; Future - Comprehensive metabolic panel; Future - TSH W/REFLEX TO FT4; Future Left lumbar radiculopathy Gastroesophageal reflux disease without esophagitis Mixed hyperlipidemia (CMS/HCC) - Lipid panel; Future Vitamin D deficiency - Vitamin D 25 hydroxy; Future Sciatica of left side - XR lumbar spine 2 or 3 views; Future Rheumatoid arthritis involving multiple sites with positive rheumatoid factor (CMS/HCC) - XR lumbar spine 2 or 3 views; Future Acute non-recurrent sinusitis, unspecified location - amoxicillin-clavulanate (Augmentin) 875-125 MG tablet; Take 1 tablet (875 mg) by mouth in the morning and 1 tablet (875 mg) before bedtime. Do all this for 10 days. - benzonatate (Tessalon Perles) 100 MG capsule; Take 1 capsule (100 mg) by mouth 3 (three) times a day as needed for cough for up to 10 days Do not crush or chew. Follow up in about 2 weeks (around 10/20/2024) for Test/Lab Review. documented in this encounter [facility] 06-17-2024 History of Presen t illness Narrative Images from the original note were not included. Subjective Patient ID: Peña Ruth is a 79 y.o. female who [...] to Visit Medication Sig Dispense Refill HYDROcodone-acetaminophen (Lookout) 5-325 MG tablet amLODIPine-valsartan (Exforge) 5-320 MG [...] all orders for this visit: Atherosclerosis of creek coronary artery of creek heart without angina pectoris (CMS/HCC) - The [...] 12/16/2024) for Wellness. documented in this encounter [facility] 05-18-2024 History of Presen t illness Narrative HAF: Pt was seen today for the fitting of her [employer] 513 JOEL Li T's coupled to 2M size receivers and 7mm open domes. Aids were set to new user, VC active. No further adjustments were made. Insertion was difficult for patient, as she recently had tendon surgery in her hand, so her will help. Discussed operation of systems spec and care/maintenance. DL Theodora on husbands phone and reviewed features. He will help DL the Theodora on her phone when they get home. Discussed warranty and trial period. Pt was unable to be scheduled, as [facility] was down, but she is to let us know if any problems were to arise. documented in this encounter [facility] 04-30-2024 Evaluation note Diagnosis Onset Date Resolution [...] ring finger acute April 30, 2024 10:30am [facility] Work Phone: 1(156) 336-509411-08-2024 Evaluation note* Diagnosis Onset Date Resolution Status Admit Date Arthritis of left wrist acute N ov2023 10:30am Dupuytrens contracture acute No vember 2023 10:30am Nontraumatic subluxation of extensor tendon at metacarpophalangeal joint of acute Nov 2023 10:30am Other specified postprocedur al states acute April 30 10:30am Trigger finger, left index finger ac anvik April 30, 2024 10:30am Trigger finger, left little finger a cute April 30, 2024 10:30am Trigger finger, right ring finger ac anvik April 30, 2024 10:30am Arthritis of left wrist acute D ec2023 10:32am Dupuytrens contracture acute De cem2023 10:32am Nontraumatic subluxation of extensor tendon at metacarpophalangeal joint of acute May 10:32am Other specified postprocedur al states acute June 01 10:32am Trigger finger, left index finger ac anvik June 01, 2024 10:32am Trigger finger, left little finger a cute June 01, 2024 10:32am Trigger finger, right ring finger ac anvik June 01, 2024 10:32am Arthritis of left wrist acute D ec2023 8:28am Dupuytrens contracture acute De cember 2023 8:28am Nontraumatic subluxation of extensor tendon at metacarpophalangeal joint of acute May ember 2023 8:28am Other specified postprocedur al states acute June 15 8:28am Trigger finger, left index finger ac anvik June 15, 2024 8:28am Trigger finger, left little finger a cute June 15, 2024 8:28am Trigger finger, right ring finger ac anvik June 15, 2024 8:28am Arthritis of left wrist acute J anuary 2024 9:10am Dupuytrens contracture acute Ja nuary 2024 9:10am Nontraumatic subluxation of extensor tendon at metacarpophalangeal joint of acute Caesar uaevelina 2024 9:10am Other specified postprocedur al states acute July 13 9:10am Trigger finger, left index finger ac anvik July 13, 2024 9:10am Trigger finger, left little finger a cute July 13, 2024 9:10am Trigger finger, right ring finger ac anvik July 13, 2024 9:10am [facility] Work Phone: 1(557) 441-849710-30-2024 Telephone encounter Note* Telephone Encounter - NIKKI Munoz - 04/21/2024 11:55 AM EDT Received message that patient wanted to proceed with an order. Order placed today for 2 HCS [id number] Li T (Signia 5IX RICs) in beige with size 2M receivers. [facility] Work Phone: 1(864) 195-162110-30-2024 Miscellaneous Notes* Telephone Encounter - NIKKI Munoz - 04/21/2024 11:55 AM EDT Received message that patient wanted to proceed with an order. Order placed today for 2 HCS [id number] Li T (Signia 5IX RICs) in beige with size 2M receivers. [id number] History of Present illness Narrative* NIKKI Munoz - 04/13/2024 9:00 AM EDT HAD: Pt was seen today to discuss hearing aid options. She has benefits through [facility] ($3000 benefit plan through [employer]). Her son mentioned research on Jabra instruments. Informed him of the manufacturers on the approved devices list provided by the insurance that we can work with (Signia, Phonak, Mayelni). We can not dispense Jabra products. Patient would like a JOLE style. She would like a rechargeable option, [...] RICs. Patient would be a size 2 flat knitter if interested in proceeding with an order. She will call to order. She would need to tell us which analytical tech, the level of technology, and what color device. Patient is also considering [employer], as they offer a5-6 year warranty plan. documented in this encounterMercy Hospital [id number] History of Present illness Narrative* Ellen Sorto [...] Relation Name Age of Onset Hypertension Mother Lorraineluisito Christensen Diabetes Mother Lorraine Christensen Cancer Mother Lorraine Christensen Stroke Father Valorie Christensen Hypertension Father Valorie Christensen Cancer Father Valorie Christensen Stroke Brother Vidal Christensen Active Ambulatory Problems Diagnosis Date Noted Abnormal results of liver function studies 12/19/2022 Allergic rhinitis, unspecified 12/19/2022 Arrest of bone development or growth 12/19/2022 Arthritis of right hand 12/19/2022 Arthritis of right wrist 12/19/2022 Atherosclerosis of creek coronary artery of creek heart without angina pectoris (CMS/HCC) 12/19/2022 Benign essential hypertension (CMS/HCC) 12/19/2022 Carpal tunnel syndrome of right wrist 12/19/2022 Diverticulosis 12/19/2022 Entrapment of left ulnar nerve 12/19/2022 GALEN (generalized anxiety disorder) (CMS/HCC) 12/19/2022 GERD (gastroesophageal reflux disease) 12/19/2022 Impaired fasting glucose 12/19/2022 Left lumbar radiculopathy 12/19/2022 Mixed hyperlipidemia (CMS/HCC) 12/19/2022 Myalgia 12/19/2022 Fibromyalgia 12/19/2022 Other chronic pain 12/19/2022 Other primary ovarian failure 12/19/2022 Rheumatoid arthritis involving multiple sites with positive rheumatoid factor ([facility]/HCC) 12/19/2022 Rheumatoid arthritis of right hand (CMS/HCC) 12/19/2022 Rosacea 12/19/2022 Sciatica 12/19/2022 Sensorineural hearing loss, bilateral 12/19/2022 Tinnitus 12/19/2022 Vitamin D deficiency 12/19/2022 Resolved Ambulatory Problems Diagnosis Date Noted Disorder of lung 12/19/2022 Past Medical History: Diagnosis Date HL (hearing loss) Hyperlipemia (CMS/HCC) Hypertension ([facility]/HCC) Osteoporosis ([facility]/HCC) RA (rheumatoid arthritis) ([facility]) Shingles Past Surgical History: Procedure Laterality Date APPENDECTOMY CARDIAC CATHETERIZATION 2007 CARPAL TUNNEL RELEASE Right 08/15/2021 dr posada CARPAL TUNNEL RELEASE Left 10/10/2021 dr posada CATARACT EXTRACTION W/ INTRAOCULAR LENS IMPLANT COLONOSCOPY HYSTERECTOMY TRIGGER FINGER RELEASE Right 03/25/[address] posdaa TRIGGER FINGER RELEASE Left 04/08/2018 lt RF [...] Appt made. Ears debrided documented in this encounterMercy Hospital [id number] History of Present illness Narrative* Anna Hoffman, CCC-A - 02/16/2024 9:45 AM EDT History: Pt [...] Ear: Type A tympanogram documented in this encounterMercy Hospital [id number] Evaluation note* Encounter Date Diagnosis Assessment Notes [...] Other specified postprocedural states (ICD-10 - Z98.890) [facility] Other 09-05-2023 Evaluation note* Encounter Date Diagnosis [...] the office with any questions or concerns. [facility] Other 08-08-2023 Evaluation note* Encounter Date Diagnosis [...] Other specified postprocedural states (ICD-10 - Z98.890) [facility] Other 06-14-2023 Evaluation note* Encounter Date Diagnosis Assessment Notes Treatment Notes Treatment Clinical Notes Nov, Mass of right wrist (ICD-10 - R22.31) We will proceed with excision soft tissue mass right hand thumb and small finger MCP Nov, Dupuytrens contracture (ICD-10 - M72.0) [facility] Other 04-23-2023 Evaluation note* Encounter Date Diagnosis [...] understanding and is agreeable to treatment plan [facility] Other 03-28-2023 Evaluation note* Encounter Date Diagnosis [...] concerns. Aug, Dupuytrens contracture (ICD-10 - M72.0) [facility] Other 02-18-2021 NotePatient Outreach ([facility]) PEÑA RUTH ([id number]) 1945 F Date Time Provider Department 08/10/20 LEELA AYERS During your visit today, we recorded the following information about you: Allergies As of Date: 08/10/2020 (Not on File) Date Reviewed: Never Reviewed Order(s):SARS-COVID VACCINE 1ST DOSE APPT [[id number]] Order #: [id number] FUTURE Prescriptions as of 08/10/2020 Sig: ENBREL [...] Of Date: 08/10/2020 (None) Encounter Status:Closed by HENRY GALO on 08/14/20[facility] Evaluation noteNo assessment information availableOur Lady Of Mercy Hospital Work Phone: Evaluation note* Diagnosis Anemia due to folic acid deficiency, unspecified deficiency type documented in this encounter [facility]* Diagnosis Onset Date Resolution Status Arthritis of left wrist acut e Dupuytrens contracture acute Mass of right wrist acute Other specified postprocedural states acute Pain in left hand acute Synovitis and tenosynovitis, unspecified acute Trigger finger, left index finger acute Trigger thumb, right thumb a cute [facility] Work Phone: Evaluation note* Diagnosis Onset Date [...] acute Trigger finger, left little finger acute [facility] Work Phone: Evaluation note* Diagnosis Onset Date [...] acute Trigger finger, right ring finger acute [facility] Work Phone: Evaluation note* Diagnosis Sensorineural hearing loss, bilateral- Primary documented in this encounter [facility] HealthcareEvaluation note* Diagnosis Onset Date Resolution Status Admit Date Arthritis of left wrist acute N ovember 2023 10:30am Dupuytrens contracture acute No vember 2023 10:30am Nontraumatic subluxation of extensor tendon at metacarpophalangeal joint of acute Nov ember 2023 10:30am Other specified postprocedur al states acute April 30 10:30am Trigger finger, left index finger ac anvik April 30, 2024 10:30am Trigger finger, left little finger a cute April 30, 2024 10:30am Trigger finger, right ring finger ac anvik April 30, 2024 10:30am [facility] Work Phone: Evaluation note* Diagnosis Sensorineural hearing loss (SNHL) of both ears- Primary Tinnitus, bilateral Unspecified tinnitus Impaired auditory discrimination, right documented in this encounter [facility] HealthcareEvaluation note* Diagnosis Bilateral impacted cerumen- Primary Impacted cerumen Sensorineural hearing loss (SNHL), bilateral documented in this encounter [facility] HealthcareEvaluation note* Diagnosis Atherosclerosis of creek coronary artery of creek heart without angina pectoris (CMS/HCC)- Primary Rheumatoid arthritis involving multiple sites with positive rheumatoid factor (CMS/HCC) Arthritis of wrist, left Benign essential hypertension (CMS/HCC) Essential hypertension, benign documented in this encounter [facility] HealthcareEvaluation note* Diagnosis Benign essential hypertension (CMS/HCC)- Primary Essential hypertension, benign Estrogen deficiency Other ovarian failure Atherosclerosis of creek coronary artery of creek heart without angina pectoris (CMS/HCC) Left lumbar radiculopathy Thoracic or lumbosacral neuritis or radiculitis, unspecified Gastroesophageal reflux disease without esophagitis Esophageal reflux Mixed hyperlipidemia (CMS/HCC) Mixed hyperlipidemia Vitamin D deficiency Sciatica of left side Rheumatoid arthritis involving multiple sites with positive rheumatoid factor (CMS/HCC) Acute non-recurrent sinusitis, unspecified location documented in this encounter [facility] HealthcareEvaluation note* Diagnosis Acute non-recurrent sinusitis, unspecified location- Primary Osteopenia of lumbar spine Sciatica of left side Rheumatoid arthritis involving multiple sites with positive rheumatoid factor (CMS/HCC) Rheumatoid arthritis, unspecified documented in this encounter [facility] HealthcareHistory general Narrative - Reported* Type Description Date Medical History Hypertension Medical History Arthritis Medical History Osteopetrosis Medical History Acid reflux Surgical History shoulder surgery Surgical History appendectomy [facility] Other History general Narrative - Reported* Type Description Date Medical History Hypertension Medical History Arthritis Medical History Osteopetrosis Medical History Acid reflux Surgical History shoulder surgery Surgical History appendectomy Surgical History right thumb trigger A-1 juan alberto release, right thumb excision of soft tissue mass/ganglion cyst of tendon sheath, right small finger metacarpophalangeal joint excision of soft tissue mass 12/16/22 [facility] Other Summary Purpose Family History No Family History Records Found Relationship Condition Age at Onset Recorded Date/T jerry father Unknown [employer] workers' pneumoconiosis Unknown Not Specified Unknown Malignant neoplasm Unknown Relationship Condition Age at Onset Recorded Date/T jerry father Unknown [employer] pneumoconiosis Unknown mother Unknown Malignant neoplasm Unknown Relationship Condition Age at Onset Recorded Date/T jerry father [employer] workers' pneumoconiosis Unknown Unknown Jaundice Unknown mother Unknown Malignant neoplasm of brain Unknown Diabetes mellitus Unknown brother Diabetes mellitus Unknown Cerebrovascular accident (CVA) Unknown Myocardial infarction Unknown sister Diabetes mellitus Unknown sister Malignant neoplasm of colon Unknown Advance Directives No Advanced Directives Records Found Advance Directive Response Recorded Date/ Time Advance [...] Arthritis of left wrist June 01, 2 024 10:32am Dupuytrens contracture June 01 10:32am Nontraumatic [...] section and content) DATE CREATED AUTHOR 06/06/2021 [facility] DATE CREATED AUTHOR AUTHOR'S ORGANIZ ATION 07/16/2021 [facility] DATE CREATED AUTHOR AUTHOR'S ORGANIZ ATION 07/29/2022 [facility] DATE CREATED AUTHOR AUTHOR'S ORGANIZ ATION 06/04/2024 [facility] DATE CREATED AUTHOR AUTHOR'S ORGANIZ ATION 10/09/2024 [facility] DATE CREATED AUTHOR AUTHOR'S ORGANIZ ATION 10/26/2024 [facility] EPIC REASON FOR VISIT (unrecogniz ed section and content) Reason Onset Date Comments Med Refill 07/24/2023 folic acid (Folv ite) 1 MG tablet TO DESIRE IN GARETH Reason Comments Hearing Loss Audio 02/16/24 Specialty Diagnoses / Procedures Referred By Javid t Referred To Contact Otolaryngology Diagnoses Bilateral hearing loss, unspecified hearing loss type Procedures NM OFFICE/OUTPATIENT NEW HIGH MDM 60 MINUTES Carlos Alberto Sanchez MD [address] [facility] [address] [place] [address] Ellen Sorto MD [address] [facility] [address] [place] [address] Referral ID Status Reason Start Date Expiration Date V isits Requested Visits Authorized [id number] Closed Specialty Services Required 12/17/2023 06/14/2024 1 1 Reason Comments Hypertension Reason Comments Cough Back Pain Reason Comments Results Back xray,labs,dexa scan Sinusitis Back Pain Care Teams (unrecognized sec tion and content) [...] July 23, 2023 End: July 23, 2023 Hairspring Vibrator Relationship Specialty Start Date End Date Carlos Alberto Sanchez MD [address] [facility] [address] [place] [address] PCP - Nicholas CRYSTAL 06/23/21 Carlos Alberto Sanchez MD [address] [facility] [address] [place] [address] PCP - General Internal Medicine 12/09/22 Team [...] October 14, 2023 End: October 14, 2023 Hairspring Vibrator Relationship Specialty Start Date End Date Carlos Alberto Sanchez MD [address] [facility] [place] [address] PCP - Nicholas CRYSTAL 06/23/21 Carlos Alberto Sanchez MD [address] [facility] [place] [address] PCP - General Internal Medicine 12/09/22 Hairspring Vibrator Relationship Specialty Start Date End Date Carlos Alberto Sanchez MD [address] [place] [address] PCP - Nicholas CRYSTAL 06/23/21 Carlos Alberto Sanchez MD [address] [place] [address] PCP - General Internal Medicine 12/09/22 Hairspring Vibrator Relationship Specialty Start Date End Date Carlos Alberto Sanchez MD [address] [place] [address] PCP - Nicholas CRYSTAL 06/23/21 Carlos Alberto Sanchez MD [address] [facility] [place] [address] PCP - General Internal Medicine 12/09/22 Team [...] May 05, 2024 End: May 05, 2024 Hairspring Vibrator Relationship Specialty Start Date End Date Carlos Alberto Sanchez MD [address] [place] [address] PCP - Nicholas CRYSTAL 06/23/21 Carlos Alberto Sanchez MD [address] [facility] [place] [address] PCP - General Internal Medicine 12/09/22 Hairspring Vibrator Relationship Specialty Start Date End Date Carlos Alberto Sanchez MD [address] [place] [address] PCP - Nicholas [place] 06/23/21 Carlos Alberto Sanchez MD [address] [place] [address] PCP - General Internal Medicine 12/09/22 Team [...] July 13, 2024 End: July 13, 2024 Hairspring Vibrator Relationship Specialty Start Date End Date Carlos Alberto Sanchez MD [address] [place] [address] PCP - Nicholas CRYSTAL 06/23/21 Carlos Alberto Sanchez MD [address] [place] [address] PCP - General Internal Medicine 12/09/22 Hairspring Vibrator Relationship Specialty Start Date End Date Carlos Alberto Sanchez MD [address] [place] [address] PCP - Nicholas CRYSTAL 06/23/21 Carlos Alberto Sanchez MD [address] [place] [address] PCP - General Internal Medicine 12/09/22 Hairspring Vibrator Relationship Specialty Start Date End Date Carlos Alberto Sanchez MD [address] [place] [address] PCP - Nicholas CRYSTAL 06/23/21 Carlos Alberto Sanchez MD [address] [place] [address] PCP - General Internal Medicine 12/09/22 Goals (unrecognized section and content) Goals may [...] BE BASED ON THE PRIMARY CLINICAL RECORDS. [employer] [facility]. provides no warranty or guarantee of the accuracy or completeness of information in this document.
== END 2024-11-01 13:40 | disposition home or self-care (01) ==
LOC: RAD 13:39
PROVIDERS: PCP Internal Medicine; Visit Provider Internal Medicine
DX: E28.39 Other primary ovarian failure (principal); M85.80 Other specified disorders of bone density and structure, unspecified site
CPT/HCPCS: 77080